=== PATIENT | female | born 1950 | race Caucasian/White ===

== ENCOUNTER 2020-09-14 16:33 | Outpatient (RCR) | payer MEDICARE, SELFPAY ==
[2020-09-14] MEDS: COVID-19 VACC, MRNA(PFIZER)/PF 30 MCG/0.3 ML SYRINGE IM (14:05)
[2020-10-05] MEDS: COVID-19 VACC, MRNA(PFIZER)/PF 30 MCG/0.3 ML SYRINGE IM (13:54)
== END 2020-12-14 23:59 ==
LOC: IMMUN 16:33
PROVIDERS: PCP Internal Medicine; Visit Provider Family Medicine
DX: Z23 Encounter for immunization (principal)
CPT/HCPCS: 0001A; 0002A; 91300

== ENCOUNTER → 2021-06-29 09:35 | Outpatient (CLI) | payer MEDICARE, SELFPAY ==
[2021-06-29 12:19] LABS: Absolute Lymphocyte Count 1.64 X10^3/uL (0.83-4.51); Basophil# 0.02 X10^3/uL; Basophil% 0.4 % (0-1); Eosinophil# 0.03 X10^3/uL; Eosinophils% 0.6 % (0-5); Hematocrit 41.5 % (37-47); Hemoglobin 13.6 g/dL (12.0-15.0); Lymphocyte # 1.64 X10^3/ul (0.83-4.51); Lymphocyte % 32.8 % (19-41); Mean Corp Hgb Conc 32.8 g/dL (32-36); Mean Corpuscular Hgb 27.7 pg (27.0-32.0); Mean Corpuscular Volume 84.5 fL (81-99); Mean Platelet Vol. 12.4 fl (6.2-12.0); NRBC Flagged by Analyzer 0 % (0-5); Neutrophil # 3.01 X10^3/uL (2.7-7.7); Neutrophil % 60.2 % (47-70); Platelet Count 178 K/mm3 (150-450); RBC Distribution Width CV 12.2 % (11.6-14.6); RBC Distribution Width SD 37.4 fl (35.1-43.9); Red Blood Count 4.91 M/mm3 (4.2-5.4)
[2021-06-29 12:39] LABS: AST(SGOT) 14 U/L (15-37); Alanine Aminotransfer ALT/SGPT 22 U/L (13-56); Albumin, Serum 3.7 g/dL (3.2-5.0); Alkaline Phosphatase 69 U/L (45-117); Anion Gap 3 (5-15); BUN 14 mg/dL (7-18); BUN/Creat Ratio 17.6 RATIO (10-20); Calcium,Total 9.1 mg/dL (8.5-10.1); Chloride 108 mmol/L (98-107); Cholesterol 201 mg/dL (200); Creatinine, Serum 0.79 mg/dL (0.55-1.02); EST Glomerular Filtration Rate 76 mL/min (>60); Est Glom Filt Rate - Afr Amer 92 mL/min (>60); Globulin 3.8 g/dL (2.2-4.2); Glucose 103 mg/dL (74-106); High Density Lipoprotein 79 mg/dL; Magnesium 2.3 mg/dL (1.6-2.6); Protein, Total 7.5 g/dL (6.4-8.2); Sodium Level 140 mmol/L (136-145); Triglycerides 66 mg/dL; Very Low Density Lipoprotein 13 mg/dL (5-40)
== END ==
PROVIDERS: PCP Internal Medicine; Referring Provider Nurse Practitioner Family; Visit Provider Nurse Practitioner Family
DX: R00.2 Palpitations (principal); I10 Essential (primary) hypertension
CPT/HCPCS: 36415; 80053; 80061; 83735; 84443; 85025

== ENCOUNTER → 2021-11-08 | Outpatient (CLI) | payer MEDICARE, SELFPAY ==
[2021-11-08 15:16] LABS: Anion Gap 7 (5-15); BUN 15 mg/dL (7-18); BUN/Creat Ratio 18.4 RATIO (10-20); Calcium,Total 8.7 mg/dL (8.5-10.1); Chloride 104 mmol/L (98-107); Creatinine, Serum 0.82 mg/dL (0.55-1.02); EST Glomerular Filtration Rate 74 mL/min (>60); Est Glom Filt Rate - Afr Amer 89 mL/min (>60); Glucose 97 mg/dL (74-106); Potassium 3.8 mmol/L (3.5-5.1); Sodium Level 138 mmol/L (136-145)
== END | disposition home or self-care (01) ==
LOC: BIMLAB 13:34
PROVIDERS: PCP Internal Medicine; Referring Provider Internal Medicine; Visit Provider Internal Medicine
DX: I10 Essential (primary) hypertension (principal)
CPT/HCPCS: 36415; 80048

== ENCOUNTER → 2022-02-27 | Outpatient (CLI) | payer MEDICARE, SELFPAY ==
[2022-02-27 15:31] LABS: Anion Gap 5 (5-15); BUN 13 mg/dL (7-18); BUN/Creat Ratio 16.6 RATIO (10-20); Chloride 106 mmol/L (98-107); Creatinine, Serum 0.78 mg/dL (0.55-1.02); EST Glomerular Filtration Rate 77 mL/min (>60); Est Glom Filt Rate - Afr Amer 93 mL/min (>60); Glucose 109 mg/dL (74-106); Potassium 4.4 mmol/L (3.5-5.1); Sodium Level 140 mmol/L (136-145)
== END | disposition home or self-care (01) ==
LOC: BIMLAB 13:48
PROVIDERS: PCP Internal Medicine; Referring Provider Internal Medicine; Visit Provider Internal Medicine
DX: I10 Essential (primary) hypertension (principal)
CPT/HCPCS: 36415; 80048

== ENCOUNTER → 2022-12-01 | Outpatient (CLI) | payer MEDICARE, SELFPAY ==
[2022-12-01 12:17] LABS: Absolute Lymphocyte Count 2.14 X10^3/uL (0.83-4.51); Absolute Neutrophil Count 3.6 X10^3/uL (2.0-7.7); Basophil# 0.02 X10^3/uL; Basophil% 0.3 % (0-1); Eosinophil# 0.07 X10^3/uL; Eosinophils% 1.1 % (0-5); Hematocrit 39.4 % (37-47); Hemoglobin 12.6 g/dL (12.0-15.0); Lymphocyte # 2.14 X10^3/ul (0.83-4.51); Lymphocyte % 34.4 % (19-41); Mean Corpuscular Hgb 28.1 pg (27.0-32.0); Mean Corpuscular Volume 87.8 fL (81-99); Mean Platelet Vol. 12.7 fl (6.2-12.0); Monocyte# 0.38 X10^3/uL; Monocyte% 6.1 % (0-10); NRBC Flagged by Analyzer 0 % (0-5); Neutrophil # 3.59 X10^3/uL (2.7-7.7); Neutrophil % 57.8 % (47-70); Platelet Count 185 K/mm3 (150-450); RBC Distribution Width CV 12.4 % (11.6-14.6); RBC Distribution Width SD 39.8 fl (35.1-43.9); Red Blood Count 4.49 M/mm3 (4.2-5.4); White Blood Count 6.2 K/mm3 (4.4-11.0)
[2022-12-01 13:04] LABS: ALB/GLOB Ratio 0.9 RATIO (0.9-2.4); AST(SGOT) 15 U/L (15-37); Alanine Aminotransfer ALT/SGPT 23 U/L (13-56); Albumin, Serum 3.4 g/dL (3.2-5.0); Alkaline Phosphatase 62 U/L (45-117); Anion Gap 6 (5-15); BUN 16 mg/dL (7-18); BUN/Creat Ratio 20.4 RATIO (10-20); Calcium,Total 8.8 mg/dL (8.5-10.1); Chloride 108 mmol/L (98-107); Cholesterol 188 mg/dL (200); Creatinine, Serum 0.78 mg/dL (0.55-1.02); EST Glomerular Filtration Rate 77 mL/min (>60); Est Glom Filt Rate - Afr Amer 93 mL/min (>60); Globulin 3.7 g/dL (2.2-4.2); Glucose 108 mg/dL (74-106); High Density Lipoprotein 75 mg/dL; Potassium 4.3 mmol/L (3.5-5.1); Protein, Total 7.1 g/dL (6.4-8.2); Sodium Level 141 mmol/L (136-145); Triglycerides 68 mg/dL; Very Low Density Lipoprotein 14 mg/dL (5-40)
== END | disposition home or self-care (01) ==
LOC: BIMLAB 10:28
PROVIDERS: PCP Internal Medicine; Visit Provider Internal Medicine
DX: I10 Essential (primary) hypertension (principal)
CPT/HCPCS: 36415; 80053; 80061; 85025

== ENCOUNTER → 2023-01-02 | Outpatient (CLI) | payer MEDICARE, SELFPAY ==
--- NOTE | 2023-01-02 14:16 | BI_ITS ---
MAMMOGRAPHY - BILATERAL SCREENING REASON FOR EXAM: Female, 72 years old. Routine annual screening examination. PERTINENT HISTORY: Non-contributory. History of prior right stereotactic breast biopsy. TECHNIQUE: Digital bilateral breast chema (3D mammographic acquisition) in the CC and MLO projections. 2-D mediolateral oblique (MLO) and craniocaudad (CC) views of both breasts were obtained. CAD: Full Field Digital Mammography with Computer Added Detection was performed. COMPARISON: Comparison is made with prior examination February 17, 2015. FINDINGS: Breast Composition: The breasts are heterogeneously dense, which may obscure small masses. There are no dominant masses or suspicious calcifications. A tissue clip marker is seen in the upper lateral aspect of the right breast with prior biopsy. Stable small benign-appearing bilateral axillary lymph nodes. No other significant abnormalities are identified. There has been no significant change since the prior study. BI/SCRN MAMM (CAD)W/CHEMA BILAT IMPRESSION: Stable bilateral screening mammogram. Yearly follow-up mammogram recommended. (A) ASSESSMENT CATEGORY: BIRADS Category 2: Benign. A letter regarding these results will be sent to the patient by the facility within 30 days. Approximately 10% of breast cancers are not detected by mammography. A normal mammogram should not delay biopsy of a clinically suspicious abnormality. [id number] Electronically Signed: Wilbert Brooks MD at 11:45 EDT ,
--- NOTE | 2023-01-02 14:25 | BD_ITS ---
STUDY: DUAL ENERGY X-RAY ABSORPTIOMETRY / DXA REASON FOR EXAM: Female, 72 years old. Post -Menopausal TECHNIQUE: Bone Mineral Density (BMD) measurements of lumbar spine and bilateral hips were obtained. COMPARISON: None. FINDINGS: Lumbar Spine (L1-L4): g/cm2 (0.811) / T-score (-2.1) / Z-score (0.0) Findings are suggestive of osteopenia with a high fracture risk. Left Femur Total: g/cm2 (0.776) / T-score (-1.4) / Z-score (0.2) Left Femoral Neck: g/cm2 (0.677) / T-score (-1.6) / Z-score (0.3) Right Femur Total: g/cm2 (0.678) / T-score (-2.2) / Z-score (-0.7) Right Femoral Neck: g/cm2 (0.613) / T-score (-2.1) / Z-score (-0.3) BD/Dexa Bone Density Study IMPRESSION: The patient is considered osteopenic as outlined below according to World Paco Organization (WHO) criteria with a high fracture risk. Reference Information: The T-score is the number of standard deviations above or below the standard which is normal for young adults at their peak bone mineral density. The World Health Organization (WHO) interprets the T-scores as follows: Above -1 Normal bone density Between -1 and -2.5 Osteopenia Equal to / or below -2.5 Osteoporosis As a practical clinical guideline, osteopenia may be graded as follows: Mild -1 through -1.5 Moderate -1.6 through -2.0 Severe -2.1 through -2.4 The Z-score is the number of standard deviations above or below age-matched controls. A Z-score of less than -1.5 would be considered abnormal. References: 1. NIH Osteoporosis and Related Bone Diseases www osteo.org 2. International Society for Clinical Densitometry www iscd.org 3. National Osteoporosis Foundation www nof.org Electronically Signed: Wilbert Brooks MD at 15:48 EDT ,
== END | disposition home or self-care (01) ==
LOC: OPBD 14:13
PROVIDERS: PCP Internal Medicine; Referring Provider Internal Medicine; Visit Provider Internal Medicine
DX: Z13.820 Encounter for screening for osteoporosis (principal); Z78.0 Asymptomatic menopausal state; Z12.31 Encounter for screening mammogram for malignant neoplasm of breast
CPT/HCPCS: 77063; 77067; 77080

== ENCOUNTER → 2023-07-12 | Outpatient (CLI) | payer MEDICARE, SELFPAY ==
[2023-07-12 17:15] LABS: Vitamin D,25 Hydroxy 28.6 ng/mL
[2023-07-12 17:19] LABS: Anion Gap 5 (5-15); BUN 17 mg/dL (7-18); Calcium,Total 9.8 mg/dL (8.5-10.1); Chloride 105 mmol/L (98-107); Creatinine, Serum 0.85 mg/dL (0.55-1.02); EST Glomerular Filtration Rate 70 mL/min (>60); Est Glom Filt Rate - Afr Amer 85 mL/min (>60); Glucose 93 mg/dL (74-106); Potassium 4.4 mmol/L (3.5-5.1); Sodium Level 139 mmol/L (136-145)
== END | disposition home or self-care (01) ==
LOC: BIMLAB 16:08
PROVIDERS: PCP Internal Medicine; Referring Provider Internal Medicine; Visit Provider Internal Medicine
DX: M85.80 Other specified disorders of bone density and structure, unspecified site (principal)
CPT/HCPCS: 36415; 80048; 82306

== ENCOUNTER → 2023-11-29 | Outpatient (CLI) | payer MEDICARE, SELFPAY ==
--- NOTE | 2023-11-29 08:50 | RAD_ITS ---
STUDY: X-RAY - RIGHT ANKLE REASON FOR EXAM: Female, 73 years old. Rolled ankle. TECHNIQUE: 3 views of the right ankle. COMPARISON: None. FINDINGS: There is an oblique fracture of the distal fibular metadiaphysis. Normal visualized distal tibia. Normal medial malleolus. Normal tibiotalar articulation and ankle mortise. Normal visualized talus and calcaneus. The visualized subtalar, talonavicular, calcaneocuboid and tarsal articulations are normal. There is mild soft tissue swelling overlying the lateral malleolus. RAD/Ankle min 3 Views IMPRESSION: Oblique fracture of the distal fibular metadiaphysis. Mild soft tissue swelling overlying the lateral malleolus. Electronically Signed: Mark Dias MD at 9:08 EDT ,
== END | disposition home or self-care (01) ==
LOC: MTRAD 08:49
PROVIDERS: PCP Internal Medicine; Referring Provider Physician Assistant Surgical; Visit Provider Physician Assistant Surgical
DX: S96.911A Strain of unspecified muscle and tendon at ankle and foot level, right foot, initial encounter (principal); X50.1XXA Overexertion from prolonged static or awkward postures, initial encounter
CPT/HCPCS: 73610

== ENCOUNTER 2023-12-12 10:17 | Day surgery (SDC) | payer MEDICARE, SELFPAY ==
[2023-12-12] VITALS (7 sets, daily range): BP systolic 98–172; BP diastolic 44–71; PULSE 53–58; RESP 16; TEMP 36.4–36.9; O2SAT 96–99; BMI 24.2
--- NOTE | 2023-12-12 10:21 | EKG12_ITS ---
Test Reason : pre op Blood Pressure : / mmHG Vent. Rate : 055 BPM Atrial Rate : 055 BPM P-R Int : 176 ms QRS Dur : 084 ms QT Int : 398 ms P-R-T Axes : 007 012 012 degrees QTc Int : 380 ms Sinus bradycardia Otherwise normal ECG No previous ECGs available Confirmed by CHARITY AGUILAR, MARIJA ([id number]), news editor CANDELARIA LOYOLA ([id number]) on 12/17/2023 8:32:00 AM Referred By: Favio Posada Confirmed By:MARIJA NASH MD
[2023-12-12] MEDS: Lactated Ringers 1,000 ML 15 ML IV (10:45)
--- NOTE | 2023-12-12 12:26 | HP.PCM_ITS ---
HPI - General HPI Narrative WANDA TURK, is a 73 F who presents for right ankle open reduction internal fixation. no changes to h and p, ok to proceed. right ankle marked. rab, post op instructions and narcotic counselling. no further questions or concerns. MR#: [id number] Acct: [id number] Name: WANDA TURK Rep #: [id number] : 1950 Provider: Dr. Favio Posada MD Age/Sex: 73/F Location[place] [facility] [place] Status: Signed Intake Vital Signs 07/12/2414:36 Height 5 ft 8 in Intake Visit Reasons: RIGHT FIBULA Accompanied by: Is patient in pain?: No Allergies No Known Allergies Allergy (Verified 12/06/23 09:28) Medications ?Medication ?Instructions ?Recorded ?Confirmed ?Type multivitamin 1 tab PO DAILY 06/29/21 12/06/23 History calcium carbonate 600 mg PO BID #180 tabs 02/08/23 12/06/23 Rx cholecalciferol (vitamin D3) 50 50 mcg PO DAILY #90 caps 02/08/23 12/06/23 Rx mcg (2,000 unit) capsule ibandronate 150 mg tablet (Boniva) 150 mg PO QMONTH #7 tabs 02/08/23 12/06/23 Rx propranolol 60 mg capsule,24 See Rx Instructions .Route 08/27/23 12/06/23 Rx hr,extended release .COMPLEX #90 caps losartan 25 mg tablet 25 mg PO BID #180 tabs 09/17/23 12/06/23 Rx PFSH Medical History Osteopenia with high risk of fracture Osteopenia Health care maintenance Colon cancer screening GERD (gastroesophageal reflux disease) Hypertension Heart palpitations History of skin cancer Surgical History History of Mohs micrographic surgery for skin cancer Family History Father Cancer HypertensionGrandfather Myocardial infarction, Onset Age: 70Mother High cholesterol Skin cancer Social History Smoking Status: Never smoker alcohol intake: current alcohol intake frequency: holidays/special occasions only substance use type: does not use what type of physical activity do you participate in: walking HPI RIGHT FIBULA Details: This documentation accurately reflects the service provided and the decisions made by me, Dr. Favio Posada MD 12/06/23 0843. Part of today?s visit was documented by [ ], acting as scribe. WANDA TURK is a 73 year old F here today for right distal fibula fracture. 8 days ago, tripped. here with her . per urgent care initial evaluation of right ankle injury. Patient states that she stepped on a root 2 days ago and twisted her right ankle. Patient states that she continues to have quite a bit of pain when ambulating on the foot. She notes no numbness, tingling or loss range of motion. No other associated symptoms or alleviating/aggravating factors. Ortho Exam General General: Yes no acute distress Neurologic: Yes alert and Yes oriented x3 Psychologic: Yes reasonable and appropriate Right Foot/Ankle Skin/Wound: Yes CDI, Ecchymosis and Soft Tissue Swelling; No Erythema Exam: present tender to palpate - over fracture site Dorsiflexion 0-20: 0 degrees Plantar Flexion 0-40: 40 degrees Compartments: Compartments: soft Tests: Villarreal Test: 1 Motor: Ankle Dorsiflextion: 4, Ankle Plantar Flexion: 4, Ankle Eversion: 4, Ankle Inversion: 4 and EHL: 4 Sensation: Deep Peroneal Nerve: I, Superficial Peroneal Nerve: I, Tibial Nerve: I, Sural Nerve: I and Saphenous Nerve: I Pulses: Dorsalis Pedis: 2 and Posterior Tibial: 2 Supplemental Info [facility] Imaging Services [address] [place] [address] [id number] Ankle min 3 Views MR#: [id number] Acct: [id number] Name: WANDA TURK Rep #: [id number] : 1950 F 73 From: Mark Dias MD PCP: Dr. Na Bragg MD Status: REG CLI Study: Ankle min 3 Views Date of Exam: 11/29/23 Exam# [id number] Ordering Dr: Rj Watson PA STUDY: X-RAY - RIGHT ANKLE REASON FOR EXAM: Female, 73 years old. Rolled ankle. TECHNIQUE: 3 views of the right ankle. COMPARISON: None. FINDINGS: There is an oblique fracture of the distal fibular metadiaphysis. Normal visualized distal tibia. Normal medial malleolus. Normal tibiotalar articulation and ankle mortise. Normal visualized talus and calcaneus. The visualized subtalar, talonavicular, calcaneocuboid and tarsal articulations are normal. There is mild soft tissue swelling overlying the lateral malleolus. RAD/Ankle min 3 Views IMPRESSION: Oblique fracture of the distal fibular metadiaphysis. Mild soft tissue swelling overlying the lateral malleolus. Electronically Signed: Mark Dias MD at 9:08 EDT , I independently reviewed the imaging. Concur with radiologist report. The fibula fracture appears nondisplaced Arcos B at the level of the syndesmosis. No talar shift or increase in the medial clear space. I did however do gravity stress external rotation stress views and the medial clear space widening to slightly over 6 mm. Coding Level of Care Code Off vis,new,level 3 Diagnoses Closed right fibular fracture S82.401A Assessment and Plan Assessment and Plan (1) Closed right fibular fracture: Status: Acute Plan: WANDA TURK is a 73 year old F here today for right distal fibula fracture. This is a Arcos B ankle fracture with gravity stress views showing 6 mm or more of medial clear space widening this is typically an indication for surgery when there is over 4 mm of widening on stress views. I let the patient know the pros and cons risk benefits of nonoperative versus surgical intervention here. Nonoperative may have higher chance of osteoarthritis with the talar shift and ankle instability but that is apparent on these gravity stress views. That being said surgery has its own set of risks like infection delayed or malunion hardware irritation breakage or other problems. Let the patient know the recovery 6 weeks of minimal amount of weightbearing and 3 to 6 months before full recovery is expected. They understand wish to go ahead with surgery signed the consent form for surgery today right ankle open reduction internal fixation. Did let them know that he may have to fix the syndesmosis as well as if there is any instability of that during surgery but typically with Arthrex suture button construct. They understood no further questions or concerns. Pros and cons risks and benefits were discussed with the patient including but not limited to infection, pain, stiffness, bleeding, damage to surrounding structures, neurovascular injury, recurrence or retear, failure or wear of hardware or fixation, instability, fracture, deep vein thrombosis and pulmonary embolism, anesthetic risks, , patient dissatisfaction, need for further surgery and other risks. Patient understood and wished to proceed with surgery, and signed the informed consent documentation. Orders: Orders Ankle min 3 Views Today S82.401A - Unspecified fracture of shaft of right fibula, initial encounter for closed fracture [facility] Medical History (Updated 12/10/23 @ 08:35 by Nichol Land) Wears glasses Walker as ambulation aid Non-smoker Osteopenia with high risk of fracture Osteopenia Health care maintenance Colon cancer screening GERD (gastroesophageal reflux disease) Hypertension Heart palpitations History of skin cancer Home Medications ?Medication ?Instructions ?Recorded ?Last Taken ?Type multivitamin 1 tab PO DAILY 06/29/21 Unknown History calcium carbonate 600 mg PO BID #180 tabs 02/08/23 Unknown Rx cholecalciferol (vitamin D3) 50 50 mcg PO DAILY #90 caps 02/08/23 Unknown Rx mcg (2,000 unit) capsule ibandronate 150 mg tablet (Boniva) 150 mg PO QMONTH #7 tabs 02/08/23 Unknown Rx losartan 25 mg tablet 25 mg PO BID #180 tabs 09/17/23 12/12/23 09:00 Rx propranolol 60 mg capsule,24 60 mg PO QHS 12/10/23 Unknown History hr,extended release Allergy/AdvReac Type Severity Reaction Status Date / Time No Known Allergies Allergy Verified 12/12/23 10:36 Family History Father Cancer Hypertension Grandfather Myocardial infarction, Onset Age: 70 Mother High cholesterol Skin cancer Surgical History History of Mohs micrographic surgery for skin cancer Social History Smoking Status: Never smoker alcohol intake: current alcohol intake frequency: holidays/special occasions only substance use type: does not use what type of physical activity do you participate in: walking Vital Signs Vital Signs Vital Signs: 12/12/23 10:38 12/12/23 10:38 Temperature 97.7 F L Temperature Source Temporal Pulse Rate 58 L Respiratory Rate 16 Respiratory Pattern Normal Blood Pressure 161/58 H Blood Pressure Mean 92 Blood Pressure Source Monitor Blood Pressure Position Semi-Fowlers Blood Pressure Location Left Arm Pulse Ox 96 Oxygen Delivery Method Room Air Weight Weight: 149 lb 14.629 oz Body Mass Index (BMI) 24.2
[2023-12-12] MEDS: Cefazolin 2 GM in 0.9% Normal Saline (100mL Bag) 100 ML IV (12:47)
--- NOTE | 2023-12-12 13:00 | RAD_ITS ---
INDICATION: FX EXAMINATION/TECHNIQUE: X-RAY - RIGHT XR Ankle 5 VIEWS COMPARISON: FINDINGS: Intraoperative images demonstrate ORIF at the distal fibula . Bony fragments are well aligned. RAD/Ankle 2 Views IMPRESSION: Status post ORIF of the distal fibula. Electronically Signed: Bj Guthrie DO at 17:01 EDT ,
--- NOTE | 2023-12-12 14:15 | OP.PCM_ITS ---
Problems Associated Problem List Diagnoses (1) Closed right fibular fracture: Report of Operation Date of Procedure: 12/12/23 Pre-Operative Diagnosis: R ankle fracture Post-Operative Diagnosis: Same Surgery/Procedure Performed:: Right ankle ORIF fibula Description of Surgical Findings:: Surgeon: Favio Posada Type of Anesthesia: Spinal Anesthesiologist: Vivek Ibarra Estimated Blood Loss (mL): 25 Description of Procedure: Patient brought to the operating room theater. Placed supine on the table. General anesthesia induced. 2 g IV Ancef ministered prior to start of procedure. Bump under the right hip. Right leg bumped up under blankets. Tourniquet applied to the thigh appropriately padded. SCD on the nonoperative leg. All bony prominences padded. Lower extremity prepped and draped in the usual sterile fashion with chlorhexidine-based prep solution allowing over 3 minutes drying time prior to draping. Preoperative timeout performed to confirm the site patient and the surgery. Began by elevating the limb inflated the tourniquet to 250 mmHg. Did a standard slightly posterior lateral incision approach to the distal fibula carried the dissection down through skin and subcutaneous tissue achieved meticulous hemostasis. Identified the fracture site cleared away any interposed hematoma and fracture periosteum. Achieved preliminary reduction using a pointed reduction forcep. Drilled the far cortex in oblique fashion across the fracture site with a 2.0 mm drill followed by 3.0 mm drill at the proximal cortex. Used the countersink. I then inserted a 3.0 mm lag screw 22 mm in length. This held the reduction nicely. I then selected a Arthrex one third tubular plate. I placed this posterior lateral surface of the distal fibula antiglide fashion. I inserted 2 fully threaded 4.0 mm cancellous screws distally as well as 4 fully threaded 2.5 mm cortical screws proximally. This achieved good reduction and held the fracture nicely in place. Final radiographs were taken AP lateral and mortise views as well as stress views external rotation stress view cotton test and direct lateral stress test of the ankle to ensure normal medial clear space no syndesmosis disruption. Tourniquet let down wound thoroughly irrigated final pictures taken and saved x- rays onto the system. Subcutaneous tissue closed with 2-0 Vicryl sutures and skin with jack. Skin cleaned with wet dry dressing followed application of Adaptic 4 x 4 gauze ABD dressing sterile cast padding and a posterior prefabricated fiberglass splint with the foot and ankle in neutral overwrapped with Kehinde wrap. Patient woken up from the general anesthetic transferred off the operating table and taken postanesthetic care unit in stable condition. All sponge needle instrument counts were correct no complications plan to be discharged home acco rding to day surgery criteria and follow-up in the office nonweightbearing in 2 days. Ch[address] not to place the patient with VTE prophylaxis they are quite mobile and fit. cpt 44652? Complications none Admit VTE Documentation VTE Present on Admission: No VTE Mechan Device Prophylaxis: SCD's VTE Pharm Prophylaxis ordered?: No Reason prophylaxis not ordered:: Treatment Not Indicated Procedures Musculoskeletal 20xxx-29xxx: Other Procedure See Report
--- NOTE | 2023-12-12 14:24 | DCINST_ITS ---
Discharge Instructions Diet Discharge Diet: No restrictions Activity Discharge Activity: Return to Normal Activity and Use Crutches Weight Bearing Status: No weight bearing Keep extremity elevated above heart level: Operative Extremity Dressing / Incision Call your doctor if your incision/area has: Continuous Slow Oozing, Sudden Increased Bleeding, Increased Pain/ Swelling, Increased Redness, Foul Smelling Discharge and Swelling at the incision site Change Dressing in: 2 days Remove Dressing in: leave in place till F/U Follow Up Care Please Follow Up With: Favio Posada MD When: 2 days Test Results: Test results from this visit will be discussed in further detail at your follow- up appointment, if applicable. Discharge Plan Admission Attending Provider: Favio Posada Primary Care Provider: Na Bragg Instructions Print Language: Arabic Discharge Orders/Prescriptions Prescriptions: New oxycodone-acetaminophen [Endocet] 5-325 mg tablet 1 tab PO Q4H MDD 6 PRN (Reason: pain) 4 Days Qty: 20 0RF No Action multivitamin Tablet 1 tab PO DAILY ibandronate [Boniva] 150 mg tablet 150 mg PO QMONTH Qty: 7 1RF calcium carbonate 600 mg calcium (1,500 mg) tablet 600 mg PO BID Qty: 180 3RF cholecalciferol (vitamin D3) 50 mcg (2,000 unit) capsule 50 mcg PO DAILY Qty: 90 3RF propranolol 60 mg capsule,extended release 24 hr 60 mg PO QHS Rx Instructions: TAKE 1 CAPSULE BY MOUTH AT BEDTIME losartan 25 mg tablet 25 mg PO BID Qty: 180 1RF Referrals / Follow Up: Na Bragg MD [Primary Care Provider] - Favio Posada MD [Med Staff - Active Staff] - Disposition Disposition (needs filled in before D/C Order can be placed): Home, Self Care
[2023-12-12] MEDS: HYDROcodone Bitartrate/Apap 5/325 Tablet PO (15:57)
== END 2023-12-12 18:27 | disposition home or self-care (01) ==
LOC: SDC 10:18 → AC 10:20
PROVIDERS: PCP Internal Medicine; Referring Provider Orthopaedic Surgery Sports Medicine; Visit Provider Orthopaedic Surgery Sports Medicine
PROC: (CPT 27792; principal; 2023-12-12 11:45)
DX: S82.431A Displaced oblique fracture of shaft of right fibula, initial encounter for closed fracture (principal); W22.8XXA Striking against or struck by other objects, initial encounter; I10 Essential (primary) hypertension; K21.9 Gastro-esophageal reflux disease without esophagitis; Z79.83 Long term (current) use of bisphosphonates; Z79.899 Other long term (current) drug therapy
CPT/HCPCS: 27792; 01480; 73600; 76000; 93005; C1713; J7120; J2405

== ENCOUNTER 2024-03-03 09:00 | Outpatient (RCR) | payer MEDICARE, SELFPAY ==
--- NOTE | 2024-01-02 10:03 | HP.PTEVAL ---
Patient's Visit Information Visit Information Visit Information: WANDA TURK is a 73 year old F referred to Physical Therapy by Dr. Favio Posada MD with a diagnosis of R fibular fracture ORIF 12/10. Date of Evaluation: 01/02/24 Physical Therapist: Wilmer Archer, DPT, OCS, CSCS Visit Plan Frequency: 2x /Week Duration: 4-6 Weeks Plan: 1-2x/week for 6 weeks (pt is NWB R until january doc visit). Ankle ROM and strength to start progressing to gait training and stair trainging and return to funciton and proprio when allowed. Next visit teach 4 way ankle and gastroc wall stretch IE HEP towel toe [id number], seated heel toe raises 2x10, AP, AROM inv/ev 15x, towel gastroc stretch 30 5x all 3x/day, also educated on stairs up right with crutch and rail and gait pattern NWB Subjective Subjective: R ankle ORIF after ankle fracture late May slipping on wetness and tree root. Surgery was around 12/11/23. Pt is NWB x 6 weeks(january). Script is for ankle ROM. Been NWB, getting around with scooter adn crutches for last 3 weeks. Kneels on 5 gallon bucket in shower. Basic ADLs are going OK, needs set up. helps. dresses I , bathroom I. Walks with aD I. Lots of steps that she scoots up and down, crawls to bedroom. one railing. HEP: none yet. Heal up. Sleep is good. No pain in a while. No employment, retired from [employer]. 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 Walks when healthy up to two miles on sidewalk. Enjoys crafting knitting and needlecraft. Read books. Objective Objective: R ankle AROM -2 DF to 55 PF to 18 inv and 10 eversion, L is /30/20 PROM is tight in gastroc and firm end feel. Incision is lateral and mostly dry , not fully healed yet, dressed appropriately. dons and doffs boot with help from son. Pushed back in WC today, has crutches and is mod I in their use NWB on L. Has been scooting up steps but can do steps upright with rail and one crutch NWB L with SBA and near mod I. Should have hubby with her if she will do this at home. Min A with just two crutches. hip and knee aROM symmetrical and WFL. strength R ankle good contractions 3+ and no pain, L ankle 4+. knee and hip strength 4-/5 B and symmetrical. reflexes 2/3 patella and achillles(R achilles not checked) sensation B LE WNL to gross light touch. Chair trasnfers are I. Balance/Special Test Scores Lower Extremity Functional Score: 22 Goals Goal 1:: 4 DF 60 PF and 25 inv and 20 ev on R ankle to normalize gait when allowed. Goal Time Frame: 4-6 Weeks Goal 2:: I in normalized gait in community when [id number] by physician Goal Time Frame: 4-6 Weeks Goal 3:: steps normal and reciprocal Goal Time Frame: 4-6 Weeks Goal 4:: pt feel back to 90% of all activities without pain Goal Time Frame: 4-6 Weeks Goal 5:: LEFS score 50 Goal Time Frame: 4-6 Weeks Rehabilitation Potential Physical Therapy Diagnosis: R ankle stiffness due to fracture and inability to bear weight due to surgery. Rehabilitation Potential: Good Anticipated Interventions Patient/Client Instruction: Educate patient on: Condition For the Purpose of:: To increase ROM, To improve nutrient delivery to tissue, To improve muscle performance and motor function and To improve ability of physical actions for home/community/work/leisure Therapeutic Exercise to Include: Strength training, Flexibilty training, Passive ROM and Active ROM For the Purpose of:: To increase ROM, To improve muscle performance and motor function, To increase tolerance to activity/condition/position, To improve ability of physical actions for home/community/work/leisure and To improve gait and locomotor functions Manual Therapy Techniques to Include: Scar massage, Passive ROM and Soft tissue mobilization For the Purpose of:: To increase ROM, To improve nutrient delivery to tissue, To improve muscle performance and motor function and To improve gait and locomotor functions Cryotherapy (ice pack, ice massage): Yes For the Purpose of:: To decrease swelling/inflammation Text: Thank you for the opportunity to evaluate your patient. For Medicare and Medicare HMO plans, please review the plan of care and approve it. It will need to be FAXED BACK to us at [phone] for Medicare purposes. For Medicare only, by signing this I certify the plan of care. Please let me know if there are questions or concerns regarding this plan of care. Physician Signature: Date:
--- NOTE | 2024-01-18 09:00 | HP.PTREVAL ---
Re-Evaluation Intro: Dr. Favio Posada MD, It has been my pleasure to treat WANDA TURK over the last 3 visits for R fibular fracture ORIF 12/10. Please see the progress note below for an update on the physical therapy plan of care! Subjective Subjective: Band exercises went OK and easy 3x10+. Pain overall is not an issue. Objective Objective/Function: walking WBAT in clinic today without pain and needs some VC but does well once instructed with two crutches. Ankle ROM after manual today is full and resisted 4 way ankle strength without pain today. Plan Plan Plan: awaiting WB progression from doctor. Then f/u next week for WB instruction and WB ex progression Balance/Gait/Functional tests Balance/Special Test Scores Lower Extremity Functional Score: 22 Goals Goals Goal 1:: 4 DF 60 PF and 25 inv and 20 ev on R ankle to normalize gait when allowed. Goal Time Frame: 4-6 Weeks Goal Progress: Goal Met Goal 2:: I in normalized gait in community when [id number] by physician Goal Time Frame: 4-6 Weeks Goal 3:: steps normal and reciprocal Goal Time Frame: 4-6 Weeks Goal 4:: pt feel back to 90% of all activities without pain Goal Time Frame: 4-6 Weeks Goal 5:: LEFS score 50 Goal Time Frame: 4-6 Weeks Anticipated Interventions Anticipated Interventions Patient/Client Instruction: Educate patient on: Condition For the Purpose of:: To increase ROM, To improve nutrient delivery to tissue, To improve muscle performance and motor function and To improve ability of physical actions for home/community/work/leisure Therapeutic Exercise to Include: Strength training, Flexibilty training, Passive ROM and Active ROM For the Purpose of:: To increase ROM, To improve muscle performance and motor function, To increase tolerance to activity/condition/position, To improve ability of physical actions for home/community/work/leisure and To improve gait and locomotor functions Manual Therapy Techniques to Include: Scar massage, Passive ROM and Soft tissue mobilization For the Purpose of:: To increase ROM, To improve nutrient delivery to tissue, To improve muscle performance and motor function and To improve gait and locomotor functions Cryotherapy (ice pack, ice massage): Yes For the Purpose of:: To decrease swelling/inflammation Re-Evaluation Ending Re-evaluation ending: Please do not hesitate to contact me at [phone] by phone or if you have questions or concerns regarding this new plan of care! Sincerely, Wilmer Archer, DPT, OCS, CSCS
--- NOTE | 2024-03-03 09:18 | HP.PTDCSUM_ITS ---
Discharge Summary D/C summary: It has been my pleasure to treat WANDA TURK referred by Dr. Favio Posada MD, with the diagnosis of R fibular fracture ORIF 12/10 for a total of 6 visit(s). Discharge Date: 03/03/24 Please see the following information for a summary of their discharge status. Subjective Subjective: No pain. Doing well. Life normal. Sleep is normal. Running from [employer], shooting basketball. 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 Exercises are going OK. To doctor . Overall Improvement % Improvement: 95 Objective Objective/Function: Walking without antalgia, steps reciprocally and normal. Full aROM R ankle, strength at 5/5. R bigger than L ankle today but that is her nromal baseline. Pt doing excellent overall and will be d/c to [facility] Goals Goal 1:: 4 DF 60 PF and 25 inv and 20 ev on R ankle to normalize gait when allowed. Goal Progress: Goal Met Goal 2:: I in normalized gait in community when [id number] by physician Goal Progress: Goal Met Goal 3:: steps normal and reciprocal Goal Progress: Goal Met Goal 4:: pt feel back to 90% of all activities without pain Goal Progress: Goal Met Goal 5:: LEFS score 50 Goal Progress: Goal Met Plan Plan: d/c D/C Information d/c sentence: If there are questions or concerns regarding this patient's physical therapy, please feel free to call me at [phone]. Thank you for the referral of this patient. Sincerely, Wilmer Archer, DPT, OCS, CSCS Balance/Gait/Functional tests Balance/Special Test Scores Lower Extremity Functional Score: 63 Improvement % Improvement: 95
== END 2024-03-03 10:01 | disposition home or self-care (01) ==
LOC: PT 09:00
PROVIDERS: PCP Internal Medicine; Referring Provider Orthopaedic Surgery Sports Medicine; Visit Provider Orthopaedic Surgery Sports Medicine
DX: S82.401D Unspecified fracture of shaft of right fibula, subsequent encounter for closed fracture with routine healing (principal)
CPT/HCPCS: 97110; 97140; 97162; 97530

== ENCOUNTER → 2024-03-03 | Outpatient (CLI) | payer MEDICARE, SELFPAY ==
[2024-03-03 15:39] LABS: Anion Gap 5 (5-15); BUN 11 mg/dL (7-18); BUN/Creat Ratio 12.9 RATIO (10-20); Calcium,Total 9.4 mg/dL (8.5-10.1); Chloride 107 mmol/L (98-107); Creatinine, Serum 0.86 mg/dL (0.55-1.02); EST Glomerular Filtration Rate 69 mL/min (>60); Est Glom Filt Rate - Afr Amer 84 mL/min (>60); Glucose 107 mg/dL (74-106); Potassium 4.2 mmol/L (3.5-5.1); Sodium Level 139 mmol/L (136-145)
[2024-03-03 15:54] LABS: Vitamin D,25 Hydroxy 31.7 ng/mL
== END | disposition home or self-care (01) ==
LOC: BIMLAB 14:16
PROVIDERS: PCP Internal Medicine; Referring Provider Internal Medicine; Visit Provider Internal Medicine
DX: M85.80 Other specified disorders of bone density and structure, unspecified site (principal)
CPT/HCPCS: 36415; 80048; 82306

== ENCOUNTER 2024-06-10 14:38 | Emergency (ER) | payer MEDICARE, SELFPAY ==
[2024-06-10 14:42] VITALS: BP 130/51; PULSE 67; RESP 18; TEMP 36.3; O2SAT 99; BMI 24.2
--- NOTE | 2024-06-10 14:57 | EKG12_ITS ---
Test Reason : SYNCOPE Blood Pressure : */* mmHG Vent. Rate : 64 BPM Atrial Rate : 64 BPM P-R Int : 184 ms QRS Dur : 72 ms QT Int : 402 ms P-R-T Axes : 45 21 11 degrees QTcB Int : 414 ms Normal sinus rhythm Normal ECG Confirmed by Kevin Peñaloza ([id number]), film editor supervisor CANDELARIA LOYOLA ([id number]) on 06/12/2024 11:01:07 AM Referred By: Confirmed By: Kevin Peñaloza
--- NOTE | 2024-06-10 14:58 | EX.ED.DYSGE1 ---
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 Narrative Narrative: Patient is a 74-year-old woman. She has history of hypertension. She has no history of syncope. She has no history of peptic ulcer disease. She denies black or maroon stool. She denies chest discomfort of any type or shortness of breath prior to syncope. She had been standing for some time. She states she got warm and then she passed out. She was described as being diaphoretic and ashen. There was no seizure activity. There is no incontinence. She was not postictal. Prior similar symptoms: No Recent Illness/Hospitalization: No PFSH PFSH Medical History Syncope Wears glasses Walker as ambulation aid Non-smoker Osteopenia with high risk of fracture Osteopenia Health care maintenance Colon cancer screening GERD (gastroesophageal reflux disease) Hypertension Heart palpitations History of skin cancer Home Medications ?Medication ?Instructions ?Recorded ?Last Taken ?Type multivitamin 1 tab PO DAILY 06/29/21 Unknown History calcium carbonate 600 mg PO BID #180 tabs 02/08/23 Unknown Rx cholecalciferol (vitamin D3) 50 50 mcg PO DAILY #90 caps 02/08/23 Unknown Rx mcg (2,000 unit) capsule ibandronate 150 mg tablet (Boniva) 150 mg PO QMONTH #7 tabs 02/08/23 Unknown Rx losartan 25 mg tablet 25 mg PO BID #180 tabs 04/03/24 Unknown Rx propranolol 60 mg capsule,24 60 mg PO QHS #90 caps 05/14/24 Unknown Rx hr,extended release Allergy/AdvReac Type Severity Reaction Status Date / Time No Known Allergies Allergy Verified 06/10/24 14:41 Family History Father Cancer Hypertension Grandfather Myocardial infarction, Onset Age: 70 Mother High cholesterol Skin cancer Surgical History History of Mohs micrographic surgery for skin cancer Social History Smoking Status: Never smoker alcohol intake: current alcohol intake frequency: holidays/special occasions only substance use type: does not use what type of physical activity do you participate in: walking [facility] Cardiovascular Cardiovascular: Denies chest pain, orthopnea, palpitations, paroxysmal nocturnal dyspnea or racing heartbeat Respiratory/Chest Respiratory/Chest: Denies cough, dyspnea, dyspnea on exertion, orthopnea or paroxysmal nocturnal dyspnea Gastrointestinal Gastrointestinal: Denies abdominal pain, melena, nausea or vomiting Genitourinary Genitourinary ED: Denies dysuria, hematuria or urinary frequency Neurologic Neurologic: Denies headache(s), paresthesias or weakness Hematologic/Lymphatic Hematologic/Lymphatic: Denies systems reviewed and no addt'l complaints, except as documented EXAM Physical Exam Const Vital Signs: 06/10/24 14:42 06/10/24 14:59 06/10/24 15:08 Temperature 97.4 F L Temperature Source Temporal Pulse Rate 67 Pulse Rate [Lying] 64 Pulse Rate [Sitting (for 1 minute prior to obtaining)] 69 Pulse Rate [Standing (for 1 minute prior to obtaining)] 71 Respiratory Rate 18 Respiratory Effort Normal Non-Labored Respiratory Pattern Normal Blood Pressure 130/51 H Blood Pressure [Lying] 119/63 Blood Pressure [Sitting (for 1 minute prior to obtaining)] 125/71 H Blood Pressure [Standing (for 1 minute prior to obtaining)] 119/82 H Blood Pressure Mean 77 Blood Pressure Mean [Lying] 81 Blood Pressure Mean [Sitting (for 1 minute prior to obtaining)] 89 Blood Pressure Mean [Standing (for 1 minute prior to obtaining)] 94 Pulse Ox 99 Oxygen Delivery Method Room Air 06/10/24 15:49 Temperature Temperature Source Pulse Rate 59 L Pulse Rate [Lying] Pulse Rate [Sitting (for 1 minute prior to obtaining)] Pulse Rate [Standing (for 1 minute prior to obtaining)] Respiratory Rate 12 Respiratory Effort Respiratory Pattern Blood Pressure 127/69 H Blood Pressure [Lying] Blood Pressure [Sitting (for 1 minute prior to obtaining)] Blood Pressure [Standing (for 1 minute prior to obtaining)] Blood Pressure Mean 88 Blood Pressure Mean [Lying] Blood Pressure Mean [Sitting (for 1 minute prior to obtaining)] Blood Pressure Mean [Standing (for 1 minute prior to obtaining)] Pulse Ox 96 Oxygen Delivery Method Room Air Positive well nourished and well developed General Appearance ED: well developed; Negative for pallor HEENT Reports moist mucous membranes Eyes PERRL and EOMs intact bilaterally General Eye ED: Negative for pale conjunctiva or scleral icterus Neck no lymphadenopathy, supple and no JVD Resp normal respiratory effort and clear to auscultation bilaterally Cardio regular rate, regular rhythm, S1 normal heart sound, S2 normal heart sound and no murmurs GI normal to inspection, nondistended, normoactive bowel sounds, non-tender, non-distended and no masses; Negative for hepatosplenomegaly GI Narrative: There is no palpable pulsatile mass. There is no abdominal bruit. Inspection: abdominal distention Palpation: soft Extremity normal to inspection General Extremety ED: Negative for edema or tenderness General Extremity: Negative for edema Neuro oriented x3 and CN's II-XII intact bilaterally Sensorium / Orientation: alert Psych mental status grossly normal Skin no rashes or lesions noted and no wounds General Skin Exam: elasticity normal; Negative for jaundice or pallor MDM MDM MDM Narrative Medical decision making narrative: Differential diagnosis is orthostatic hypotension, vasovagal syncope, dysrhythmia. Will place on monitor. EKG to assess for any ischemic changes had orthostatic vitals. Clinically she not anemic and has no symptoms are consistent with anemic. History is consistent with vasovagal response prior records reviewed she has a history of hypertension. She is on losartan and metoprolol. History & Record Review Additional record(s) reviewed:: Prior outpatient record Lab Data Labs: Laboratory Results - last 24 hr 06/10/24 15:14 POC Glucose 101 Treatment and Re-Evaluation :: Patient was observed for approximate 2 hours. There is no dysrhythmia on the monitor. Orthostatics were negative. Patient's history is consistent with vasovagal syncopal episode. She was discharged to home with appropriate home-going structures. Discharge Plan Triage Chief Complaint: Syncope ED Provider: Azar Brower Dx/Rx/DC Orders Clinical Impression: Vasovagal syncope, Hypertension Instructions: ED Fainting, Vagal Reaction Prescriptions: No Action multivitamin Tablet 1 tab PO DAILY ibandronate [Boniva] 150 mg tablet 150 mg PO QMONTH Qty: 7 1RF calcium carbonate 600 mg calcium (1,500 mg) tablet 600 mg PO BID Qty: 180 3RF cholecalciferol (vitamin D3) 50 mcg (2,000 unit) capsule 50 mcg PO DAILY Qty: 90 3RF losartan 25 mg tablet 25 mg PO BID Qty: 180 1RF propranolol 60 mg capsule,extended release 24 hr 60 mg PO QHS Qty: 90 1RF Rx Instructions: TAKE 1 CAPSULE BY MOUTH AT BEDTIME Primary Care Provider: Na Bragg Referrals: Na Bragg MD [Primary Care Provider] - As Needed Print Language: Nigerian Disposition Disposition: Home, Self Care
[2024-06-10 15:08] VITALS: BP 119/63; BP 119/82; BP 125/71; PULSE 64; PULSE 69; PULSE 71
[2024-06-10 15:32] LABS: Bedside Glucose 101 mg/dL (74-106)
[2024-06-10 15:49] VITALS: BP 127/69; PULSE 59; RESP 12; O2SAT 96
[2024-06-10 17:23] VITALS: BP 136/73; PULSE 62; RESP 16; TEMP 36.6; O2SAT 99
== END 2024-06-10 17:24 | disposition home or self-care (01) ==
PROVIDERS: Emergency Provider Emergency Medicine; PCP Internal Medicine; Visit Provider Emergency Medicine
DX: R55 Syncope and collapse (principal); I10 Essential (primary) hypertension; Z79.899 Other long term (current) drug therapy
CPT/HCPCS: 82962; 93005; 99284

== ENCOUNTER → 2024-10-13 | Outpatient (CLI) | payer MEDICARE, SELFPAY ==
[2024-10-13 16:58] LABS: Absolute Lymphocyte Count 2.54 X10^3/uL (0.83-4.51); Absolute Neutrophil Count 3.1 X10^3/uL (2.0-7.7); Basophil# 0.03 X10^3/uL; Basophil% 0.5 % (0-1); Eosinophil# 0.17 X10^3/uL; Eosinophils% 2.7 % (0-5); Hematocrit 39.2 % (37-47); Hemoglobin 12.8 g/dL (12.0-15.0); Lymphocyte # 2.54 X10^3/ul (0.83-4.51); Lymphocyte % 40.7 % (19-41); Mean Corp Hgb Conc 32.7 g/dL (32-36); Mean Corpuscular Hgb 27.9 pg (27.0-32.0); Mean Corpuscular Volume 85.6 fL (81-99); Mean Platelet Vol. 12.2 fl (6.2-12.0); Monocyte# 0.37 X10^3/uL; Monocyte% 5.9 % (0-10); NRBC Flagged by Analyzer 0 % (0-5); Neutrophil # 3.12 X10^3/uL (2.7-7.7); Platelet Count 197 K/mm3 (150-450); RBC Distribution Width CV 12.6 % (11.6-14.6); RBC Distribution Width SD 39.6 fl (35.1-43.9); Red Blood Count 4.58 M/mm3 (4.2-5.4); White Blood Count 6.2 K/mm3 (4.4-11.0)
[2024-10-13 18:33] LABS: ALB/GLOB Ratio 1.3 RATIO (0.9-2.4); AST(SGOT) 27 U/L (<=31); Alanine Aminotransfer ALT/SGPT 23 U/L (<=34); Albumin, Serum 4.2 g/dL (3.4-4.8); Alkaline Phosphatase 68 U/L (35-104); Anion Gap 10 (5-15); BUN 17 mg/dL (4-19); BUN/Creat Ratio 21.8 RATIO (10-20); Calcium,Total 9.9 mg/dL (7.6-11.0); Chloride 105 mmol/L (98-108); Cholesterol 242 mg/dL (<=200); Creatinine, Serum 0.79 mg/dL (0.70-1.20); EST Glomerular Filtration Rate 79 (>60); Globulin 3.1 g/dL (2.2-4.2); Glucose 89 mg/dL (70-99); High Density Lipoprotein 77 mg/dL; Low Density Lipoprotein Calc. 114 mg/dL; Protein, Total 7.3 g/dL (5.9-8.4); Sodium Level 140 mmol/L (133-145); Total Bilirubin 0.88 mg/dL (0.00-1.30); Triglycerides 257 mg/dL; Very Low Density Lipoprotein 51 mg/dL (5-40); cholesterol:hdl ratio screen 3.15
[2024-10-13 18:36] LABS: Vitamin D,25 Hydroxy 29.3 ng/mL (30-100)
== END | disposition home or self-care (01) ==
LOC: BIMLAB 15:58
PROVIDERS: PCP Internal Medicine; Referring Provider Internal Medicine; Visit Provider Internal Medicine
DX: I10 Essential (primary) hypertension (principal); M85.80 Other specified disorders of bone density and structure, unspecified site
CPT/HCPCS: 36415; 80053; 80061; 82306; 85025

== ENCOUNTER → 2025-01-06 | Outpatient (CLI) | payer MEDICARE, SELFPAY ==
--- NOTE | 2025-01-06 10:13 | BD_ITS ---
PROCEDURE: DEXA BONE DENSITY STUDY 01/06/2025 REASON FOR EXAM: POST MENOPAUSAL F, age 74 y/o . TECHNIQUE: DEXA BONE DENSITY STUDY COMPARISON: DEXA scan on 01/02/2023 FINDINGS: BMD and T-SCORES Lumbar spine: 0.848 g/cm2, T-score -1.8 Levels: L1 through L4 Change from prior: Statistically significant BMD increase of 4.6%. Left femoral neck: 0.687 g/cm2, T-score -1.5 Femoral neck comparison data not recommended for monitoring change. Prior T-score -1.6 Left total hip: 0.755 g/cm2, T-score -1.5 Change from prior: No significant change in BMD.. Right femoral neck: 0.678 g/cm2, T-score -1.5 Femoral neck comparison data not recommended for monitoring change. Prior T-score -2.1 Right total hip: 0.685 g/cm2, T-score -2.1 Change from prior: No significant change in BMD.. The World Health Organization has defined the following categories based on bone density: Normal bone density: T-score equal to or greater than -1.0 Osteopenia: T-score between -1.0 and -2.5 Osteoporosis: T-score equal to or less than -2.5 FRAX (or Comparable) Fracture Risk Assessment: 10 Year Probability of Fracture: Major Osteoporotic Fracture: 24% Hip Fracture: 8.2% (Note: FRAX is not to be reported in setting of normal range bone density, osteoporosis on DEXA, known history of osteoporosis, prior osteoporotic hip or vertebral fracture, or for any patient undergoing pharmacological treatment for bone loss.) The National Osteoporosis Foundation (NOF) recommends pharmacological treatment for patients with a FRAX 10-year risk of 3% or higher for a hip fracture, or 20% or higher for a major osteoporotic fracture, to prevent osteoporosis and reduce fracture risk. The patient does meet the pharmacological treatment recommendations for prevention of osteoporosis. BD/Dexa Bone Density Study IMPRESSION: OSTEOPENIA. Reading Location: [id number]
--- NOTE | 2025-01-06 10:15 | BI_ITS ---
EXAM: SCRN MAMM (CAD)W/CHEMA BILAT DATE: 01/06/2025 CLINICAL HISTORY: F, Age 74 y/o , BREAST CANCER SCREENING TECHNIQUE: SCRN MAMM (CAD)W/CHEMA BILAT COMPARISON: Prior exam(s) dated 01/02/2023. FINDINGS: TISSUE DENSITY: There are scattered areas of fibroglandular density. Bilateral Breast Mammographic Findings: There is an irregular mass in the upper-outer right breast at posterior depth. No significant masses, calcifications or other abnormalities are identified. BI/SCRN MAMM (CAD)W/CHEMA BILAT IMPRESSION: The irregular mass in the upper-outer right breast at posterior depth requires further evaluation. Recommend diagnostic mammogram and ultrasound of the right breast. OVERALL FINAL ASSESSMENT BI-RADS 0: INCOMPLETE - NEED ADDITIONAL IMAGING EVALUATION. RECOMMENDATION: Additional Views obtained/call backs A letter with findings and recommendations will be mailed to the patient. Reading Location: [id number]
--- OUTSIDE RECORDS SUMMARY | 2025-01-06 21:09 | XMS RPT_ITS | CCD ---
Author Organization [facility] Care Team Providers Care Director Digital Strategy Name Role Phone Dr. Na Bragg Primary Care Provider [phone]) Mahsa, Dr. Monzon Referring Provider [phone])2 MIREILLE Burnett Attending Provider Dr. Na Bragg Attending Provider [phone])2 Dr. Na Bragg Primary Care Provider 1(33 0) Dr. Na Bragg Attending Provider 1(330)2 Dr. Na Bragg Referring Provider 1(330)2 Dr. Na Bragg Primary Care Provider 1(33 0) Dr. Na Bragg Attending Provider 1(330)2 Dr. Na Bragg Referring Provider 1(330)2 Dr. Na Bragg Primary Care Provider 1(33 0) Dr. Na Bragg Attending Provider 1(330)2 Dr. Na Bragg Referring Provider 1(330)2 Dr. Na Bragg MD Primary Care Provider Dr. Na Bragg MD Attending Provider 1(33 0) Dr. Na Bragg MD Referring Provider 1(33 0) Miguelito Benitez Attending Unavailable Na Bragg Primary Care Unavailable Na Bragg Referring Unavailable Na Bragg Attending Unavailable Na Bragg Primary Care Unavailable Brower, Azar Attending Unavailable Oleghe, Efewongbe Primary Care Unavailable Oleghe, Efewongbe Primary Care Unavailable Oleghe, Efewongbe Attending Unavailable Oleghe, Efewongbe Referring Unavailable Oleghe, Efewongbe Primary Care Unavailable Oleghe, Efewongbe Attending Unavailable Oleghe, Efewongbe Referring Unavailable Oleghe, Efewongbe Primary Care Unavailable Favio Posada Attending Unavailable Favio Posada Referring Unavailable Oleghe, Efewongbe Attending Unavailable Oleghe, Efewongbe Primary Care Unavailable Oleghe, Efewongbe Referring Unavailable Oleghe, Efewongbe Primary Care Unavailable Favio Posada Attending Unavailable Oleghe, Efewongbe Referring Unavailable EmmanuelShantanuSaint [facility] Attending Unavailable Oleghe, Efewongbe Primary Care Unavailable Oleghe, Efewongbe Primary Care Unavailable Oleghe, Efewongbe Attending Unavailable Oleghe, Efewongbe Referring Unavailable Oleghe, Efewongbe Referring Unavailable Oleghe, Efewongbe Primary Care Unavailable Favio Posada Attending Unavailable Medications Current Medications Medication Drug Class(es) Dates Sig (Normalized) Sig (Original) calcium carbonate 1500 mg oral tablet (2 sources) Start: 02-08-2023 take 1 tablet by mouth twice daily Calcium Carbonate 600 mg calcium (1,500 mg) tablet Active 600 mg PO TWICE A DAY 180 February 08, 2023 12:00am cholecalciferol 0.05 mg oral capsule (2 sources) Vitamin D Start: 02-08-2023 take 1 capsule by mouth once daily Cholecalciferol (Vitamin D3) 50 mcg (2,000 unit) capsule Active 50 ug PO DAILY 90 February 08, 2023 12:00am ibandronic acid 150 mg oral tablet (3 sources) Bisphosphonate Start: 02-08-2023 End: 09-02-2024 take 1 tablet by mouth every month Ibandronate 150 mg tablet Active 150 mg PO EVERY MONTH September 02, 2024 12:21pm losartan potassium 25 mg oral tablet (20 sources) Angiotensin 2 Receptor Nelson Start: 01-25-2022 End: 04-03-2024 take 1 tablet by mouth twice daily Losartan 25 mg tablet Active 25 mg PO TWICE A DAY 180 April 03, 2024 1:02pm Start: 09-07-2021 End: 01-25-2022 take 1 tablet by mouth once daily Losartan 25 mg tablet Discontinued 25 mg PO DAILY December 07, 2021 3:50pm January 25, 2022 1:50pm Multivitamin preparation (5 sources) Start: 06-29-2021 take 1 tablet by mouth once daily Multivitamin Active 1 TABLET PO DAILY June 29, 2021 10:02am Start: 06-29-2021 take 1 tablet by ekaterina th once daily Multivitamin Active 1 TABLET PO DAILY June 29, 2021 12:00am Start: 06-29-2021 take 1 tablet by ekaterina th once daily Multivitamin Active 1 TABLET PO DAILY June 29, 2021 1:00am Multivitamin tablet (1 source) Start: 06-29-2021 Multivitamin t ablet Active 1 {tbl} PO DAILY June 29, 2021 1:00am 24 hr propranolol hydrochloride 60 mg extended release oral capsule (20 sources) beta-Adrenergi c Nelson Start: 07-27-2021 End: 05-14-2024 take 1 capsule by mouth every twenty-four hours at bedtime Propranolol 60 mg capsule,extended release 24 hr Active 60 mg PO AT BEDTIME May 14, 2024 4:36pm TAKE 1 CAPSULE BY MOUTH AT BEDTIME Completed/Discontinued Medications Medication Drug Class(es) Dates Sig (Normalized) Sig (Original) acetaminophen 325 mg / oxyCODONE hydrochloride 5 mg oral tablet (1 source) Opioid Agonist Start: 12-12-2023 End: 12-25-2023 Oxycodone-Acetamin ophen (Endocet) 5-325 mg tablet Discontinued 1 {tbl} PO Q4H as needed for pain 26 10December 12, 2023 December 25, 2023 9:18am omeprazole 40 mg delayed release oral capsule (6 sources) Proton Pump Inhibitor Start: 07-27-2021 End: 11-14-2021 take 1 capsule by mouth once daily Omeprazole 40 mg capsule,delayed release(DR/EC) Discontinued 40 mg PO DAILY July 27, 2021 1:00am November 14, 2021 8:59am Problems Active Problems Problem Classification Problem Date Documented Date Episodic/Chronic Anxiety disorders (9 sources) Anxiety; Translations: [Anxiety disorder, unspecified] Chronic Cardiac dysrhythmias (9 sources) Palpitations; Translations: [Palpitations] Episodic Esophageal disorders (10 sources) Gastroesophageal reflux disease; Translations: [Gastro-esophageal reflux disease without esophagitis] Chronic Essential hypertension (16 sources) Hypertensive disorder; Translations: [Essential (primary) hypertension] Onset: 10-16-2024 Chronic Other bone disease and musculoskeletal deformities (2 sources) Osteopenia; Translations: [Other specified disorders of bone density and structure, unspecified site] 02-08-2023 Episodic Other bone disease and musculoskeletal deformities (3 sources) Osteopenia with high fracture risk; Translations: [Other specified disorders of bone density and structure, unspecified site] 07-12-2023 Episodic Other bone disease and musculoskeletal deformities (2 sources) Other specified disorders of bone density and structure, unspecified site; Translations: [Disorder of bone and cartilage, unspecified] Onset: 10-13-2024 07-12-2023 Episodic Other nervous system disorders (6 sources) Tremor; Translations: [Tremor, unspecified] 07-23-2021 Episodic Other screening for suspected conditions (not mental disorders or infectious disease) (5 sources) Patient encounter status; Translations: [Encounter for screening for malignant neoplasm of colon] Onset: 01-02-2025 12-01-2022 Episodic Residual codes; unclassified (2 sources) Asymptomatic menopausal state; Translations: [Asymptomatic menopausal state] Onset: 10-13-2024 Episodic Past or Other Problems Problem Classification Problem Date Documented Da te Episodic/Chronic Fracture of lower limb (2 sources) Closed fracture of fibula; Translations: [Unspecified fracture of shaft of right fibula, initial encounter for closed fracture] Onset: 03-06-2024 11-29-2023 Episodic Sprains and strains (2 sources) Strain of muscle and/or tendon of lower leg; Translations: [Strain of unspecified muscle and tendon at ankle and foot level, right foot, initial encounter] Onset: 03-06-2024 11-29-2023 Episodic Syncope (2 sources) Vasovagal syncope; Translations: [Syncope and collapse] Onset: 07-12-2024 06-18-2024 Episodic Results Test Name Value Interpretation Reference Range Facility Absolute neutrophil countOrd ered By: Na Bragg on 10-13-2024 Neutrophils (Bld) [#/Vol] 3.1 10*3/uL 2.0-7.7 [facility] Anion gap in Serum or Plasma Ordered By: Na Bragg on 10-13-2024 Anion gap [Moles/Vol] 10 mmol/L 5-15 [facility] BUN/creatinine ratioOrdered By: Na Bragg on 10-13-2024 Urea nitrogen/Creatinine [Mass ratio] 21.8 mg/mg High 10-20 [facility] Basophil percentageOrdered B y: Na Bragg on 10-13-2024 Basophils/100 WBC (Bld) 0.5 % 0-[address] [facility] Bilirubin, totalOrdered By: Na Bragg on 10-13-2024 Bilirubin [Mass/Vol] 0.88 mg/dL 0.00-1.[address] [facility] CBC W/Diff, Automatedon Absolute Lymph 2.54 X10 3/uL Normal 0.83-4.51 [facility] Comment on above: Performed By: #### L 500.4050, L500.4100, L506.1001, L100.0100 ####[facility] [address] [place], [address] Absolute Neut 3.1 X10 3/uL Normal 2.0-7.7 [facility] Comment on above: Performed By: #### L 500.4050, L500.4100, L506.1001, L100.0100 ####[facility] [address] [place], [address] Basophils/100 WBC (Bld) 0.5 % Normal 0-[address] [facility] Comment on above: Performed By: #### L 500.4050, L500.4100, L506.1001, L100.0100 ####[facility] [address] [place], [address] Eosinophils/100 WBC (Bld) 2.7 % Normal 0-5 [facility] Comment on above: Performed By: #### L 500.4050, L500.4100, L506.1001, L100.0100 ####[facility] [address] [place], [address] Erythrocyte distribution width (RBC) [Ratio] 12.6 % Normal 11.6-14.6 [facility] Comment on above: Performed By: #### L 500.4050, L500.4100, L506.1001, L100.0100 ####[facility] [address] [place], [address] Hematocrit (Bld) [Volume fraction] 39.2 % Normal 37-47 [facility] Comment on above: Performed By: #### L 500.4050, L500.4100, L506.1001, L100.0100 ####[facility] [address] [place], [address] Hemoglobin (Bld) [Mass/Vol] 12.8 g/dL Normal 12.0-15.0 [facility] Comment on above: Performed By: #### L 500.4050, L500.4100, L506.1001, L100.0100 ####[facility] [address] [place], [address] IG% 0.200 Normal 0.0-0.9 [facility] Comment on above: Result Comment: IG% - Immature Granulocytes (promyelocytes, myelocytes and metamyelocytes) > 1% indicates that a LEFT SHIFT is Present. Performed By: #### L 500.4050, L500.4100, L506.1001, L100.0100 ####[facility] [address] [place], [address] Lymphocytes/100 WBC (Bld) 40.7 % Normal 19-41 [facility] Comment on above: Performed By: #### L 500.4050, L500.4100, L506.1001, L100.0100 ####[facility] [address] [place], [address] MCH (RBC) [Entitic mass] 27.9 pg Normal 27.0-32.0 [facility] Comment on above: Performed By: #### L 500.4050, L500.4100, L506.1001, L100.0100 ####[facility] [address] [place], [address] MCHC (RBC) [Mass/Vol] 32.7 g/dL Normal 32-36 [facility] Comment on above: Performed By: #### L 500.4050, L500.4100, L506.1001, L100.0100 ####[facility] [address] [place], [address] MCV (RBC) [Entitic vol] 85.6 fL Normal 81-99 [facility] Comment on above: Performed By: #### L 500.4050, L500.4100, L506.1001, L100.0100 ####[facility] [address] [place], [address] Monocytes/100 WBC (Bld) 5.9 % Normal 0-10 [facility] Comment on above: Performed By: #### L 500.4050, L500.4100, L506.1001, L100.0100 ####[facility] [address] [place], [address] Neutrophils/100 WBC (Bld) 50.0 % Normal 47-70 [facility] Comment on above: Performed By: #### L 500.4050, L500.4100, L506.1001, L100.0100 ####[facility] [address] [place], [address] Nucleated RBC (Bld) [#/Vol] 0 10*3/uL Normal 0-5 [facility] Comment on above: Performed By: #### L 500.4050, L500.4100, L506.1001, L100.0100 ####[facility] [address] [place], [address] Platelet mean volume (Bld) [Entitic vol] 12.2 fL High 6.2-12.0 [facility] Comment on above: Performed By: #### L 500.4050, L500.4100, L506.1001, L100.0100 ####[facility] [address] [place], [address] Platelets (Bld) [#/Vol] 197 10*3/uL Normal 150-450 [facility] Comment on above: Performed By: #### L 500.4050, L500.4100, L506.1001, L100.0100 ####[facility] [address] [place], [address] RBC (Bld) [#/Vol] 4.58 10*6/uL Normal 4.2-5.4 [facility] Comment on above: Performed By: #### L 500.4050, L500.4100, L506.1001, L100.0100 ####[facility] [address] [place], [address] RDW SD 39.6 fl Normal 35.1-43.9 [facility] Comment on above: Performed By: #### L 500.4050, L500.4100, L506.1001, L100.0100 ####[facility] [address] [place], [address] WBC (Bld) [#/Vol] 6.2 10*3/uL Normal 4.4-11.0 [facility] Comment on above: Performed By: #### L 500.4050, L500.4100, L506.1001, L100.0100 ####[facility] [address] [place], [address] Calculated very low density lipoprotein (VLDL) cholesterol measurementOrdered By: Na velázquez 10-13-2024 VLDL Cholesterol 51 mg/dL High 5-40 [facility] Carbon dioxide, total [Moles /volume] in Central venous bloodOrdered By: Na Bragg on 10-13-2024 CO2 [Moles/Vol] 25.0 mmol/L 21.0-32.0 [facility] Chloride assayOrdered By: Татьяна Bragg on 10-13-2024 Chloride [Moles/Vol] 105 mmol/L 98-[address] [facility] Comprehensive Metabolic Prof ilon 10-13-2024 Albumin [Mass/Vol] 4.2 g/dL Normal 3.4-4.8 [facility] Comment on above: Performed By: #### L 500.4050, L500.4100, L506.1001, L100.0100 ####[facility] [address] [place], [address] Albumin/Globulin [Mass ratio] 1.3 {ratio} Normal 0.9-2.4 [facility] Comment on above: Performed By: #### L 500.4050, L500.4100, L506.1001, L100.0100 ####[facility] [address] [place], [address] ALK PHOS 68 U/L Normal 35-104 [facility] Comment on above: Performed By: #### L 500.4050, L500.4100, L506.1001, L100.0100 ####[facility] [address] [place], [address] ALT [Catalytic activity/Vol] 23 U/L Normal <=34 [facility] Comment on above: Performed By: #### L 500.4050, L500.4100, L506.1001, L100.0100 ####[facility] [address] [place], [address] AST [Catalytic activity/Vol] 27 U/L Normal <=31 [facility] Comment on above: Performed By: #### L 500.4050, L500.4100, L506.1001, L100.0100 ####[facility] [address] [place], [address] Bilirubin [Mass/Vol] 0.88 mg/dL Normal 0.00-1.[address] [facility] Comment on above: Performed By: #### L 500.4050, L500.4100, L506.1001, L100.0100 ####[facility] [address] [place], [address] BUN/CRE 21.8 RATIO High 10-20 [facility] Comment on above: Performed By: #### L 500.4050, L500.4100, L506.1001, L100.0100 ####[facility] [address] [place], [address] Calcium [Mass/Vol] 9.9 mg/dL Normal 7.6-11.0 [facility] Comment on above: Performed By: #### L 500.4050, L500.4100, L506.1001, L100.0100 ####[facility] [address] [place], [address] Chloride [Moles/Vol] 105 mmol/L Normal 98-[address] [facility] Comment on above: Performed By: #### L 500.4050, L500.4100, L506.1001, L100.0100 ####[facility] [address] [place], [address] CO2 [Moles/Vol] 25.0 mmol/L Normal 21.0-32.0 [facility] Comment on above: Performed By: #### L 500.4050, L500.4100, L506.1001, L100.0100 ####[facility] [address] [place], [address] Creatinine [Mass/Vol] 0.79 mg/dL Normal 0.70-1.20 [facility] Comment on above: Performed By: #### L 500.4050, L500.4100, L506.1001, L100.0100 ####[facility] [address] [place], [address] GAP 10 Normal 5-15 [facility] Comment on above: Performed By: #### L 500.4050, L500.4100, L506.1001, L100.0100 ####[facility] [address] [place], [address] GFR/1.73 sq M.predicted among non-blacks MDRD (S/P/Bld) [Vol rate/Area] 79 mL/min/{1.73_m2} Normal >60 [facility] Comment on above: Result Comment: mL/m in/1.73m2 CKD-EPI Creatinine Equation (2020) Performed By: #### L 500.4050, L500.4100, L506.1001, L100.0100 ####[facility] [address] [place], [address] Globulin (S) [Mass/Vol] 3.1 g/dL Normal 2.2-4.2 [facility] Comment on above: Performed By: #### L 500.4050, L500.4100, L506.1001, L100.0100 ####[facility] [address] [place], [address] Glucose [Mass/Vol] 89 mg/dL Normal 70-99 [facility] Comment on above: Performed By: #### L 500.4050, L500.4100, L506.1001, L100.0100 ####[facility] [address] [place], [address] Potassium [Moles/Vol] 5.0 mmol/L Normal 3.3-5.1 [facility] Comment on above: Performed By: #### L 500.4050, L500.4100, L506.1001, L100.0100 ####[facility] [address] [place], [address] Sodium [Moles/Vol] 140 mmol/L Normal 133-145 [facility] Comment on above: Performed By: #### L 500.4050, L500.4100, L506.1001, L100.0100 ####[facility] [address] [place], [address] T PROT 7.3 g/dL Normal 5.9-8.4 [facility] Comment on above: Performed By: #### L 500.4050, L500.4100, L506.1001, L100.0100 ####[facility] [address] [place], [address] Urea nitrogen [Mass/Vol] 17 mg/dL Normal 4-19 [facility] Comment on above: Performed By: #### L 500.4050, L500.4100, L506.1001, L100.0100 ####[facility] [address] [place], [address] Eosinophil percentageOrdered By: Na Bragg on 10-13-2024 Eosinophils/100 WBC (Bld) 2.7 % 0-5 [facility] Erythrocyte distribution wid th (RBC) [Ratio]Ordered By: Na Bragg on 10-13-2024 Erythrocyte distribution width (RBC) [Entitic vol] 39.6 fL 35.1-43.9 [facility] Erythrocyte distribution wid th ratioOrdered By: Na Bragg on 10-13-2024 Erythrocyte distribution width (RBC) [Ratio] 12.6 % 11.6-14.6 [facility] GFR/1.73 sq M.predicted dana g non-blacks MDRD (S/P/Bld) [Vol rate/Area]Ordered By: Na Bragg on 10-13-2024 Estimated GFR (MDRD) Non-Af Amer 79 >60 [facility] Comment on above: mL/min/1.73m2 CKD-EP I Creatinine Equation (2020) Hematocrit Auto (Bld) [Volum e fraction]Ordered By: Na Bragg on 10-13-2024 Hematocrit (Bld) [Volume fraction] 39.2 % 37-47 [facility] Hemoglobin measurementOrdere d By: Na Bragg on 10-13-2024 Hemoglobin (Bld) [Mass/Vol] 12.8 g/dL 12.0-15.0 [facility] Immature granulocytes/100 WB C Auto (Bld)Ordered By: Na Bragg on 10-13-2024 Immature granulocytes/100 WBC (Bld) 0.200 % 0.0-0.9 [facility] Comment on above: IG% - Immature Granu locytes (promyelocytes, myelocytes and metamyelocytes) > 1% indicates that a LEFT SHIFT is Present. Internal Medicine Office Vis liz 10-13-2024 Internal Medicine Office Visit [facility] [address] [place] [address] [place] [address] OFFICE VISIT Date of Service: 10/13/24 MR#: [id number] Acct: [id number] Name: WANDA TURK Rep #: [id number] : 1950 Provider: Dr. Na wolf MD Age/Sex: 74/F Location: [facility] Status: Signed Intake Vital Signs 06/10/24 14:42 10/13/24 15:37 Height 5 ft 7 in 5 ft 7 in Weight: 151 lb BMI 23.6 BP 134/84 H Blood Pressure Location Lt brachial Position Sitting Respiration 16 Pulse 61 Pulse Source Monitor Temp 97.7 F L Temp Source Temporal Pulse Oximetry (%) 98 Oxygen Delivery Method room air Intake Visit Reasons: fu Chief Complaint: FU Chronic conditions Program Production Specialist Required: No Is patient in pain?: No Allergies No Known Allergies Allergy (Verified 10/13/24 15:29) Medications ???Medication ???Instructions ???Recorded ???Confirmed ???Type multivitamin 1 tab PO DAILY 06/29/21 10/13/24 H istory calcium carbonate 600 mg PO BID #180 tabs 02/08/23 0 10/13/24 Rx cholecalciferol (vitamin D3) 50 50 mcg PO DAILY #90 caps 02/08/23 10/13/24 Rx mcg (2,000 unit) capsule losartan 25 mg tablet 25 mg PO BID #180 tabs 04/03/24 Rx propranolol 60 mg capsule,24 60 mg PO QHS #90 caps 05/14/2401/30 Rx hr,extended release ibandronate 150 mg tablet 150 mg PO QMONTH #7 tabs 09/02/24 10/13/24 Rx Have you fallen in the past year?: Yes (06/2024) PFSH Medical History Syncope Wears glasses Walker as ambulation aid Non-smoker Osteopenia with high risk of fracture Osteopenia Health care maintenance Colon cancer screening GERD (gastroesophageal reflux disease) Hypertension Heart palpitations History of skin cancer Surgical History History of Mohs micrographic surgery for skin cancer Family History (Updated 10/13/24 @ 15:35 by Priya Sánchez MA) Father Cancer brain or spinal uncertain Hypertension Grandfather Myocardial infarction, Onset Age: 70 Mother High cholesterol Skin cancer Social History (Updated 10/13/24 @ 15:37 by Priya Sánchez MA) adopted: No household members: spouse and family number of children: 2 current occupational status: retired pets and animals: Yes pets and animals: cat(s) and dog(s) sexually active: Yes Smoking Status: Never smoker alcohol intake: current alcohol intake frequency: holidays/special occasions only substance use type: does not use caffeine: No what type of physical activity do you participate in: walking frequency: daily do you feel safe at home: Yes HPI HPI Chief Complaint: FU Chronic conditions Details: WANDA TURK, is a 74 F who presents to the office today for follow-up of her chronic conditions. No acute concerns at this time. History of hypertension, today at 134/84. Typically has elevated readings during her visit and better readings overall at home. Last known systolic reading at home was 117. No chest pain, palpitation or shortness of breath. Also history of osteopenia with high fracture risk currently on ibandronate. Tolerating medication well. Due for repeat bone density scan. Other chronic medical conditions are stable. ROS Const Constitutional: No body ache, chills, excessive sweating, fatigue, fever(s), frequent falls, headache(s), snoring, weakness, sleep problems or change in appetite Eyes Eyes: No blurry vision, change in vision, bulging eyes, floaters, visual disturbances, eye pain or Light sensitivity ENT ENT: No abnormal hearing, ear or mastoid pain, tinnitus, balance problems, nosebleed/epistaxis , nasal congestion, headache(s), neck pain or sore throat Resp Respiratory: No cough, excessive phlegm production, pain on inspiration, shortness of breath, snoring or wheezing Cardio Cardiology: No chest pain at rest, chest pain with exertion, excessive sweating, shortness of breath, dyspnea on exertion, lightheadedness, orthopnea or palpitations Gastro GI: No abdominal pain, change in bowel habits, constipation, cramping, diarrhea, nausea/dyspepsia or vomiting Genitourinary-Femal e: No burning urination, painful urination, urinary incontinence, urinary frequency, suprapubic fullness, side pain, abnormal vaginal bleeding or pelvic pain Musc Musculoskeletal: No abnormal gait, joint pain, back pain, limited range of motion, neck pain or numbness Skin Skin: No dry skin, redness, excessive hair growth, yellowing of the eye, lesions, itchy eyes, rash or wounds Neuro Neurology: No abnormal gait, abnormal hearing, behavioral changes, unsteady gait/balance, weakness, frequent falls, headache(s), memory loss, numbness or visual disturbances Psych Psychia (more content not included)... Normal [facility] LDL calc ser/plasOrdered By: Na Bragg on 10-13-2024 LDL Cholesterol, Calculated 114 mg/dL [facility] Comment on above: Djxnbpyoai=541-510 m g/dL & Higher Qbvb=846 mg/dL or greater Laboratory - Chemistry and C hemistry - challengeOrdered By: Na Bragg on 10-13-2024 AST [Catalytic activity/Vol] 27 U/L <32 [facility] Lipid Profileon 10-13-2024 CHOL:HDL 3.15 Normal [facility] Comment on above: Performed By: #### L 500.4050, L500.4100, L506.1001, L100.0100 ####[facility] [address] [place], [address] Cholesterol [Mass/Vol] 242 mg/dL High <=200 [facility] Comment on above: Result Comment: Chol esterol level, Desirable <200 mg/dL Borderline high cholesterol 200-239 mg/dL High cholesterol >=240 mg/dL Recommendations of the NCEP Adult Treatment Panel for the following risk-cutoff thresholds for the [place] population. Performed By: #### L 500.4050, L500.4100, L506.1001, L100.0100 ####[facility] [address] [place], [address] Cholesterol in HDL [Mass/Vol] 77 mg/dL Normal [facility] Comment on above: Result Comment: Steph onal Cholesterol Education Program (NCEP) guidelines: <40 mg/dL: Low HDL-cholesterol (major risk factor for CHD) >= 60 mg/dL: High HDL-cholesterol (negative risk factor for CHD) HDL-cholesterol is affected by a number of factors, e.g. smoking, exercise, hormones, sex and age. Performed By: #### L 500.4050, L500.4100, L506.1001, L100.0100 ####[facility] [address] [place], [place], [address] Cholesterol in LDL [Mass/Vol] 114 mg/dL Normal [facility] Comment on above: Result Comment: Bord mxsdzj=000-676 mg/dL Higher Ycfi=673 mg/dL or greater Performed By: #### L 500.4050, L500.4100, L506.1001, L100.0100 ####[facility] [address] [place], [address] Cholesterol in VLDL [Mass/Vol] 51 mg/dL High 5-40 [facility] Comment on above: Performed By: #### L 500.4050, L500.4100, L506.1001, L100.0100 ####[facility] [address] [place], [address] Triglyceride [Mass/Vol] 257 mg/dL High [facility] Comment on above: Result Comment: The drugs N-Acetylcysteine and Metamizole may falsely depress this assay. Normal range: <150 mg/dL Borderline High: 150-199 mg/dL High: 200-499 mg/dL Very High: >500 mg/dL Performed By: #### L 500.4050, L500.4100, L506.1001, L100.0100 ####[facility] [address] [place], [address] Lymphocytes Auto (Unsp spec) [#/Vol]Ordered By: Na Bragg on 10-13-2024 Lymphocytes (Bld) [#/Vol] 2.54 10*3/uL 0.83-4.5 1 [facility] Lymphocytes/100 WBC Auto (Un sp spec)Ordered By: Na Bragg on 10-13-2024 Lymphocytes/100 WBC (Bld) 40.7 % 19-41 [facility] MCV (mean corpuscular volume ) determinationOrdered By: Na Bragg on 10-13-2024 MCV (RBC) [Entitic vol] 85.6 fL 81-99 [facility] Mean corpuscular hemoglobin (MCH) determinationOrdered By: Na Bragg on 10-13-2024 MCH (RBC) [Entitic mass] 27.9 pg 27.0-32.0 [facility] Mean corpuscular hemoglobin concentration (MCHC) determinationOrdered By: Na Bragg on 10-13-2024 MCHC (RBC) [Mass/Vol] 32.7 g/dL 32-36 [facility] Mean platelet volume determi nationOrdered By: Na Bragg on 10-13-2024 Platelet mean volume (Bld) [Entitic vol] 12.2 fL High 6.2-12.0 [facility] Monocyte percentageOrdered B y: Na Bragg on 10-13-2024 Monocytes/100 WBC (Bld) 5.9 % 0-[address] [facility] Neutrophil percentageOrdered By: Na Bragg on 10-13-2024 Neutrophils/100 WBC (Bld) 50.0 % 47-70 [facility] Nucleated red blood cell per centageOrdered By: Na Bragg on 10-13-2024 Nucleated RBC/100 WBC (Bld) [Ratio] 0 % 0-5 [facility] Platelet countOrdered By: Татьяна Bragg on 10-13-2024 Platelets (Bld) [#/Vol] 197 10*3/uL 150-450 [facility] Potassium (Unsp spec) [Mass/ Vol]Ordered By: Na Bragg on 10-13-2024 Potassium [Moles/Vol] 5.0 mmol/L 3.3-5.1 [facility] RBC Auto (Bld) [#/Vol]Ordere d By: Na Bragg on 10-13-2024 RBC (Bld) [#/Vol] 4.58 10*6/uL 4.2-5.4 [facility] Screening total cholesterol/ high density lipoprotein (HDL) cholesterol ratioOrdered By: Na Bragg on 10-13-2024 Cholesterol.total/Cholest jenn in HDL [Mass ratio] 3.15 {ratio} [facility] Serum creatinine measurement (mass/volume)Ordered By: Na Bragg on 10-13-2024 Creatinine [Mass/Vol] 0.79 mg/dL 0.70-1.20 [facility] Serum globulin measurementOr dered By: Na Bragg on 10-13-2024 Globulin (S) [Mass/Vol] 3.1 g/dL 2.2-4.[address] [facility] Serum glucose measurement (m ass/volume)Ordered By: Na Bragg on 10-13-2024 Glucose [Mass/Vol] 89 mg/dL 70-99 [facility] Serum or plasma alanine hollis otransferase (ALT) measurementOrdered By: Татьянаsimba Bragg on 10-13-2024 ALT [Catalytic activity/Vol] 23 U/L <35 [facility] Serum or plasma albumin nigel urement (mass/volume)Ordered By: Татьянаsimba Bragg on 10-13-2024 Albumin [Mass/Vol] 4.2 g/dL 3.4-4.8 [facility] Serum or plasma albumin/glob ulin mass ratioOrdered By: [facility] 10-13-2024 Albumin/Globulin [Mass ratio] 1.3 {ratio} 0.9-2.4 [facility] Serum or plasma alkaline tatyana sphatase measurementOrdered By: [facility] 10-13-2024 ALP [Catalytic activity/Vol] 68 U/L 35-104 [facility] Serum or plasma calcium nigel urement (mass/volume)Ordered By: [facility] 10-13-2024 Calcium [Mass/Vol] 9.9 mg/dL 7.6-11.0 [facility] Serum or plasma cholesterol in HDL measurement (mass/volume)Ordered By: [facility] 10-13-2024 Cholesterol in HDL [Mass/Vol] 77 mg/dL >40 [facility] Comment on above: National Cholesterol Education Program (NCEP) guidelines:<40 mg/dL: Low HDL-cholesterol (major risk factor for CHD)>= 60 mg/dL: High HDL-cholesterol (negative risk factor for CHD)HDL-cholesterol is affected by a number of factors, e.g. smoking, exercise, hormones, sex and age. Serum or plasma cholesterol measurement (mass/volume)Ordered By: Na Bragg 10-13-2024 Cholesterol [Mass/Vol] 242 mg/dL High <201 [facility] Comment on above: Cholesterol level, D esirable <200 mg/dLBorderline high cholesterol 200-239 mg/dLHigh cholesterol >=240 mg/dLRecommendations of the NCEP Adult Treatment Panel for the following risk-cutoff thresholds for the [place] population. Serum or plasma urea nitroge n measurement (mass/volume)Ordered By: Na Bragg 10-13-2024 Urea nitrogen [Mass/Vol] 17 mg/dL 4-19 [facility] Sodium levelOrdered By: Miguel velázquezcoretta Mahsa on 10-13-2024 Sodium [Moles/Vol] 140 mmol/L 133-145 [facility] Total proteinOrdered By: Wenceslao gabrielejoseph Bragg on 10-13-2024 Protein [Mass/Vol] 7.3 g/dL 5.9-8.4 [facility] Triglycerides measurementOrd ered By: Na Bragg on 10-13-2024 Triglyceride [Mass/Vol] 257 mg/dL High <[address] [facility] Comment on above: The drugs N-Acetylcy steine and Metamizole may falsely depress this assay. Normal range: <150 mg/dLBorderline High: 150-199 mg/dLHigh: 200-499 mg/dLVery High: >500 mg/dL Vitamin D, 25-hydroxyOrdered By: Na Bragg on 10-13-2024 Vitamin D 25-Hydroxy 29.3 ng/mL Low 30-[address] [facility] Comment on above: Vitamin D StatusDefi ciency: <20 ng/mL (50nmol/L)Insufficiency: 20-30 ng/mL (50-75 nmol/L)Sufficiency: 30-100 ng/mL (75-250 nmol/L)Toxicity: >100 ng/mL (>250 nmol/L) Vitamin D,25 Hydroxyon 10-13 Vitamin D 25-OH 29.3 ng/mL Low 30-100 [facility] Comment on above: Result Comment: Katie min D Status Deficiency: <20 ng/mL (50nmol/L) Insufficiency: 20-30 ng/mL (50-75 nmol/L) Sufficiency: 30-100 ng/mL (75-250 nmol/L) Toxicity: >100 ng/mL (>250 nmol/L) Performed By: #### L 500.4050, L500.4100, L506.1001, L100.0100 ####[facility] [address] [place], [address] White blood cell (WBC) count Ordered By: Na Bragg on 04-07-2025 WBC (Bld) [#/Vol] 6.2 10*3/uL 4.4-11.0 [facility] 12 Lead EKGon 06-10-2024 12 Lead EKG [facility] Cardi[facility] Services [address] [place] [address] 12 Lead EKG 06/10/24 1507 MR#: [id number] Acct: [id number] Name: WANDA TURK Rep #: [id number] : 1950 74 From: Kevin Peñaloza MD Attending Dr: Status: DEP ER Ordering Dr: Azar Brower MD Date: 06/10/24 Location: ED Sex: F C Admitted: Test Reason : SYNCOPE Blood Pressure : */* mmHG Vent. Rate : 64 BPM Atrial Rate : 64 BPM P-R Int : 184 ms QRS Dur : 72 ms QT Int : 402 ms P-R-T Axes : 45 21 11 degrees QTcB Int : 414 ms Normal sinus rhythm Normal ECG Confirmed by Kevin Peñaloza ([id number]), editor trade journal CANDELARIA LOYOLA ([id number]) on 06/12/2024 11:01:07 AM Referred By: Confirmed By: Kevin Peñaloza 06/12/24 1101 Date Kevin Peñaloza MD CC: Dr. Na Bragg MD; Dr. Azar Brower MD Signed Normal [facility] Bedside Glucoseon 06-10-2024 FINGERSTICK GLU 101 mg/dL Normal 74-106 [facility] Comment on above: Result Comment: JOSE ALBERTO BRASWELL OF PATIENT CARE PER NURSING PROTOCOL Performed By: #### L 501.080 ####[facility] [address] [place], [address] Emergency Department Summary on 06-10-2024 Emergency Department Summary [facility] Medical Records Department [address] [place] [address] Emergency Department Summary 06/10/24 MR#: [id number] Acct: [id number] Name: WANDA TURK Rep #: [id number] : 1950 74 From: Azar Brower MD PCP: Dr. 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 Narrative Narrative: Patient is a 74-year-old woman. She has history of hypertension. She has no history of syncope. She has no history of peptic ulcer disease. She denies black or maroon stool. She denies chest discomfort of any type or shortness of breath prior to syncope. She had been standing for some time. She states she got warm and then she passed out. She was described as being diaphoretic and ashen. There was no seizure activity. There is no incontinence. She was not postictal. Prior similar symptoms: No Recent Illness/Hospitaliza tion: No PFSH PFSH Medical History Syncope Wears glasses Walker as ambulation aid Non-smoker Osteopenia with high risk of fracture Osteopenia Health care maintenance Colon cancer screening GERD (gastroesophageal reflux disease) Hypertension Heart palpitations History of skin cancer Home Medications ???Medication ???Instructions ???Recorded ???Last Taken ???Type multivitamin 1 tab PO DAILY 06/29/21 Unknown History calcium carbonate 600 mg PO BID #180 tabs 02/08/23 Unknown Rx cholecalciferol (vitamin D3) 50 50 mcg PO DAILY #90 caps 02/08/23 Unknown Rx mcg (2,000 unit) capsule ibandronate 150 mg tablet (Boniva) 150 mg PO QMONTH #7 tabs 02/08/23 Unknown Rx losartan 25 mg tablet 25 mg PO BID #180 tabs 04/03/24 Unknown Rx propranolol 60 mg capsule,24 60 mg PO QHS #90 caps 05/14/24 Unknown Rx hr,extended release Allergy/AdvReac Type Severity Reaction Status Date / Time No Known Allergies Allergy Verified 06/10/24 14:41 Family History Father Cancer Hypertension Grandfather Myocardial infarction, Onset Age: 70 Mother High cholesterol Skin cancer Surgical History History of Mohs micrographic surgery for skin cancer Social History Smoking Status: Never smoker alcohol intake: current alcohol intake frequency: holidays/special occasions only substance use type: does not use what type of physical activity do you participate in: walking ROS ROS ED Cardiovascular Cardiovascular: Denies chest pain, orthopnea, palpitations, paroxysmal nocturnal dyspnea or racing heartbeat Respiratory/Chest Respiratory/Chest: Denies cough, dyspnea, dyspnea on exertion, orthopnea or paroxysmal nocturnal dyspnea Gastrointestinal Gastrointestinal: Denies abdominal pain, melena, nausea or vomiting Genitourinary Genitourinary ED: Denies dysuria, hematuria or urinary frequency Neurologic Neurologic: Denies headache(s), paresthesias or weakness Hematologic/Lymphat ic Hematologic/Lymphat ic: Denies systems reviewed and no addt'l complaints, except as documented EXAM Physical Exam Const Vital Signs: 06/10/24 14:42 06/10/24 14:59 06/10/24 15:08 Temperature 97.4 F L Temperature Source Temporal Pulse Rate 67 Pulse Rate [Lying] 64 Pulse Rate [Sitting (for 1 minute prior to obtaining)] 69 Pulse Rate [Standing (for 1 minute prior to obtaining)] 71 Respiratory Rate 18 Respiratory Effort Normal Non-Labored Respiratory Pattern Normal Blood Pressure 130/51 H Blood Pressure [Lying] 119/63 Blood Pressure [Sitting (for 1 minute prior to obtaining)] 125/71 H Blood Pressure [Standing (for 1 minute prior to obtaining)] 119/82 H Blood Pressure Mean 77 Blood Pressure Mean [Lying] 81 Blood Pressure Mean [Sitting (for 1 minute prior to obtaining)] 89 Blood Pressure Mean [Standing (for 1 minute prior to obtaining)] 94 Pulse Ox 99 Oxygen Delivery Method Room Air 06/10/24 15:49 Temperature Temperature Source Pulse Rate 59 L Pulse Rate [Lying] Pulse Rate [Sitting (for 1 minute prior to obtaining)] Pulse Rate [Standing (for 1 minute prior to obtaining)] Respiratory Rate 12 Respiratory Effort Respiratory Pattern Blood Pressure 127/69 H Blood Pressure [Lying] Blood Pressure [Sitting ( (more content not included)... Normal [facility] Ankle min 3 Viewson 03-06-20 Ankle min 3 Views [facility] [address] [place] [address] Ankle min 3 Views MR#: [id number] Acct: [id number] Name: WANDA TURK Rep #: [id number] : 1950 F 73 From: Yefri chatterjee MD PCP: Dr. Na Bragg MD Status: DEP AMB Study: Ankle min 3 Views Date of Exam: 03/06/24 Exam# [id number] Ordering Dr: Favio Posada MD -[id number] STUDY: X-RAY - RIGHT ANKLE REASON FOR EXAM: Female, 73 years old. fu TECHNIQUE: 3 view(s) of the ankle. COMPARISON: None. FINDINGS: No acute abnormality. Compression plate and screws across the distal fibula. Normal visualized distal tibia and fibula. Normal medial and lateral malleoli. Normal tibiotalar articulation and ankle mortise. Normal visualized talus and calcaneus. The visualized subtalar, talonavicular, calcaneocuboid and tarsal articulations are normal. There is no demonstrated fracture. The soft tissue structures are unremarkable. RAD/Ankle min 3 Views IMPRESSION: No acute fracture or dislocation. Electronically Signed: Yefri Torres MD at 17:16 EDT , CC: Dr. Na Bragg MD; Dr. Favio Posada MD Well Cleaner: Signed Normal [facility] Orthopedic Visit Reporton Orthopedic Visit Report [facility] [address] [place] [address] OFFICE VISIT Date of Service: 03/06/24 MR#: [id number] Acct: [id number] Name: WANDA TURK Rep #: [id number] : 1950 Provider: Dr. Favio velázquez MD Age/Sex: 73/F Location: [facility] Status: Signed Intake Vital Signs 12/12/23 10:38 03/03/24 13:54 Height 5 ft 6 in 5 ft 6 in Weight: 153 lb BMI 24.7 BP 164/84 H Blood Pressure Location Lt brachial Position Sitting Respiration 17 Pulse 62 Pulse Source Monitor Temp 98.5 F Temp Source Temporal Pulse Oximetry (%) 96 Oxygen Delivery Method room air Intake Visit Reasons: RIGHT ANKLE Chief Complaint: 6 wk f/u Accompanied by: Self Is patient in pain?: No Allergies No Known Allergies Allergy (Verified 03/06/24 09:14) Medications ???Medication ???Instructions ???Recorded ???Confirmed ???Type multivitamin 1 tab PO DAILY 06/29/21 03/06/24 History calcium carbonate 600 mg PO BID #180 tabs 02/08/23 03/06/24 Rx cholecalciferol (vitamin D3) 50 50 mcg PO DAILY #90 caps 02/08/23 03/06/24 Rx mcg (2,000 unit) capsule ibandronate 150 mg tablet (Boniva) 150 mg PO QMONTH #7 tabs 02/08/23 03/06/24 Rx losartan 25 mg tablet 25 mg PO BID #180 tabs 09/17/23 03/06/24 Rx propranolol 60 mg capsule,24 60 mg PO QHS #90 caps 02/14/24 03/06/24 Rx hr,extended release Have you fallen in the past year?: Yes PFSH Medical History Wears glasses Walker as ambulation aid Non-smoker Osteopenia with high risk of fracture Osteopenia Health care maintenance Colon cancer screening GERD (gastroesophageal reflux disease) Hypertension Heart palpitations History of skin cancer Surgical History History of Mohs micrographic surgery for skin cancer Family History Father Cancer Hypertension Grandfather Myocardial infarction, Onset Age: 70 Mother High cholesterol Skin cancer Social History Smoking Status: Never smoker alcohol intake: current alcohol intake frequency: holidays/special occasions only substance use type: does not use what type of physical activity do you participate in: walking HPI RIGHT ANKLE Details: This documentation accurately reflects the service provided and the decisions made by me, Dr. Favio Posada MD 03/06/24 0756. Part of today???s visit was documented by [ ], acting as scribe. WANDA TURK is a 73 year old F here today for 3 months FU R ankle ORIF. Patient doing well no pain swelling or other problems. The patient has been discharged from physical therapy as they are doing quite well in terms of the range of motion. Supplemental Info xr 3 view r ankle - healed fracture, no complicating features Coding Level of Care Code Global Post Op Diagnoses Closed right fibular fracture S82.401A Right ankle strain S96.911A Assessment and Plan Assessment and Plan (1) Closed right fibular fracture: Status: Acute Plan: WANDA TURK is a 73 year old F here today for 3 months FU R ankle ORIF. Patient doing well good range of motion no pain fracture appears healed will follow-up as needed no further questions or concerns. (2) Right ankle strain: Status: Acute Orders: Orders Ankle min 3 Views Today S82.401A - Unspecified fracture of shaft of right fibula, initial encounter for closed fracture, S96.911A - Strain of unspecified muscle and tendon at ankle and foot level, right foot, initial encounter Clinical Quality Measures Falls Risk Screening/Assistive Devices Have you fallen in the past year?: Yes Ortho Exam General General: Yes no acute distress Neurologic: Yes alert and Yes oriented x3 Psychologic: Yes reasonable and appropriate Right Foot/Ankle Skin/Wound: Yes CDI and healed; No Ecchymosis, Soft Tissue Swelling or Erythema Exam: present eversion normal and inversion normal; absent tender to palpate - over fracture site, TTP Lateral Malleolus or TTP Peroneal Dorsiflexion 0-20: 10 degrees Plantar Flexion 0-40: 40 degrees Compartments: Compartments: soft ROM: none pain with range of motion and none crepitus with range of motion Motor: Ankle Dorsiflextion: 5, Ankle Plantar Flexion: 5, Ankle Eversion: 5, Ankle Inversion: 5 and EHL: 5 Sensation: Deep Peroneal Nerve: I, Superficial Peroneal Nerve: I, Tibial Nerve: I, Sural Nerve: I and Saphenous Nerve: I Pulses: Dorsalis Pedis: 2 and Posterior Tibial: 2 ANKLE: normal gait 03/06/24 09 Date Favio Dickerson Signature: Date (more content not included)... Normal [facility] Basic Metabolic Profile (BMP )on 03-03-2024 BUN/CRE 12.9 RATIO Normal 10-20 [facility] Comment on above: Performed By: #### L 506.1000, L500.2500 ####[facility] [address] [place], [address] CA,Total 9.4 mg/dL Normal 8.5-10.1 [facility] Comment on above: Performed By: #### L 506.1000, L500.2500 ####[facility] [address] [place], [address] Chloride [Moles/Vol] 107 mmol/L Normal 98-[address] [facility] Comment on above: Performed By: #### L 506.1000, L500.2500 ####[facility] [address] [place], [address] CO2 [Moles/Vol] 27.0 mmol/L Normal 21.0-32.0 [facility] Comment on above: Performed By: #### L 506.1000, L500.2500 ####[facility] [address] [place], [address] Creatinine [Mass/Vol] 0.86 mg/dL Normal 0.55-1.02 [facility] Comment on above: Result Comment: The validity of the calculated GFR GFRAA in patients over 70 years has not been determined. Clinical correlation is essential. Performed By: #### L 506.1000, L500.2500 ####[facility] [address] [place], [address] EST GFR - AA 84 mL/min Normal >60 [facility] Comment on above: Result Comment: Afri can [place] GFR Calc Performed By: #### L 506.1000, L500.2500 ####[facility] [address] [place], [address] GAP 5 Normal 5-15 [facility] Comment on above: Performed By: #### L 506.1000, L500.2500 ####[facility] [address] [place], [address] GFR/1.73 sq M.predicted among non-blacks MDRD (S/P/Bld) [Vol rate/Area] 69 mL/min/{1.73_m2} Normal >60 [facility] Comment on above: Result Comment: Non- GFR Calc Performed By: #### L 506.1000, L500.2500 ####[facility] [address] [place], [address] Glucose [Mass/Vol] 107 mg/dL High 74-106 [facility] Comment on above: Result Comment: Fast ing Glucose result from 100 to 125 mg/dL suggests IMPAIRED HOMEOSTASIS per A.D.A. criteria. Performed By: #### L 506.1000, L500.2500 ####[facility] [address] [place], [address] Potassium [Moles/Vol] 4.2 mmol/L Normal 3.5-5.1 [facility] Comment on above: Performed By: #### L 506.1000, L500.2500 ####[facility] [address] [place], [address] Sodium [Moles/Vol] 139 mmol/L Normal 136-145 [facility] Comment on above: Performed By: #### L 506.1000, L500.2500 ####[facility] [address] [place], [address] Urea nitrogen [Mass/Vol] 11 mg/dL Normal 7-18 [facility] Comment on above: Performed By: #### L 506.1000, L500.2500 ####[facility] [address] [place], [address] Internal Medicine Office Vis [place] 03-03-2024 Internal Medicine Office Visit [facility] [address] [place] [address] [place] [address] OFFICE VISIT Date of Service: 03/03/24 MR#: [id number] Acct: [id number] Name: WANDA TURK Rep #: [id number] : 1950 Provider: Dr. Na wolf MD Age/Sex: 73/F Location: [facility] Status: Signed Intake Vital Signs 07/12/23 15:36 12/12/23 10:38 03/03/24 13:54 03/03/24 13:56 Height 5 ft 8 in 5 ft 6 in 5 ft 6 in Weight: 153 lb BMI 24.7 BP 164/84 H 160/80 H Blood Pressure Location Lt brachial Lt brachial Position Sitting Respiration 17 Pulse 62 Pulse Source Monitor Temp 98.5 F Temp Source Temporal Pulse Oximetry (%) 96 Oxygen Delivery Method room air Intake Visit Reasons: 6 M FU Chief Complaint: 6 M FU Is patient in pain?: No Allergies No Known Allergies Allergy (Verified 03/03/24 13:55) Medications ???Medication ???Instructions ???Recorded ???Confirmed ???Type multivitamin 1 tab PO DAILY 06/29/21 03/03/24 History calcium carbonate 600 mg PO BID #180 tabs 02/08/23 03/03/24 Rx cholecalciferol (vitamin D3) 50 50 mcg PO DAILY #90 caps 02/08/23 03/03/24 Rx mcg (2,000 unit) capsule ibandronate 150 mg tablet (Boniva) 150 mg PO QMONTH #7 tabs 02/08/23 03/03/24 Rx losartan 25 mg tablet 25 mg PO BID #180 tabs 09/17/23 03/03/24 Rx propranolol 60 mg capsule,24 60 mg PO QHS #90 caps 02/14/24 03/03/24 Rx hr,extended release Have you fallen in the past year?: Yes PFSH Medical History Wears glasses Walker as ambulation aid Non-smoker Osteopenia with high risk of fracture Osteopenia Health care maintenance Colon cancer screening GERD (gastroesophageal reflux disease) Hypertension Heart palpitations History of skin cancer Surgical History History of Mohs micrographic surgery for skin cancer Family History Father Cancer Hypertension Grandfather Myocardial infarction, Onset Age: 70 Mother High cholesterol Skin cancer Social History Smoking Status: Never smoker alcohol intake: current alcohol intake frequency: holidays/special occasions only substance use type: does not use what type of physical activity do you participate in: walking HPI HPI Chief Complaint: 6 M FU Details: WANDA TURK, is a 73 F who presents to the office today for follow-up of her chronic medical conditions. No acute concerns at this time. History of osteopenia with high fracture risk. Status post recent right fibula fracture, not pathological. Subsequently had surgery which was uneventful. Currently on Boniva which she continues to take consistently. Also on calcium and vitamin D supplements. History of hypertension, blood pressure typically elevated during her visits but home readings on average less than 120. Currently on losartan and propranolol which she continues to take as prescribed. No chest pain, palpitation or shortness of breath. Other chronic conditions are stable. ROS Const Constitutional: No body ache, chills, excessive sweating, fatigue, fever(s), frequent falls, headache(s), snoring, weight change, sleep problems, abnormal sleep pattern or change in appetite Eyes Eyes: No blurry vision, change in vision, bulging eyes, floaters, visual disturbances, eye pain or Light sensitivity ENT ENT: No abnormal hearing, ear or mastoid pain, tinnitus, balance problems, nosebleed/epistaxis , nasal congestion, headache(s), neck pain or sore throat Resp Respiratory: No cough, excessive phlegm production, pain on inspiration, shortness of breath, snoring or wheezing Cardio Cardiology: No chest pain at rest, chest pain with exertion, excessive sweating, shortness of breath, dyspnea on exertion, lightheadedness, orthopnea or palpitations Gastro GI: No abdominal pain, change in bowel habits, constipation, cramping, diarrhea, nausea/dyspepsia or vomiting Genitourinary-Femal e: No burning urination, painful urination, urinary incontinence, urinary frequency, abnormal vaginal bleeding or pelvic pain Musc Musculoskeletal: No abnormal gait, joint pain, back pain, limited range of motion, neck pain, numbness or tingling Skin Skin: No dry skin, redness, excessive hair growth, yellowing of the eye, lesions, itchy eyes, rash or wounds Neuro Neurology: No abnormal gait, abnormal hearing, behavioral changes, unsteady gait/balance, frequent falls, headache(s), memory loss, numbness, tingling or visual disturbances Psych Psychiatric: No abnormal sleep pattern, No anxiety, No behavioral changes, No change in appetite, No irritability, No memory loss and No Thoughts of harming yourself/Others Endo End (more content not included)... [facility] PT D/C Summary (1)on 024 PT D/C Summary (1) [facility] [place] [address] / REHABILITATION SERVICES DISCHARGE SUMMARY MR#: [id number] Acct: [id number] Name: WANDA TURK Rep #: [id number] : 1950 73 From: Wilmer Archer DPT, OCS, CSCS Referring Dr.: Dr. Favio Posada MD Status: R EG RCR Insurance: [facility] SELF PAY INSURANCE Discharge Summary D/C summary: It has been my pleasure to treat WANDA TURK referred by Dr. Favio Posada MD, with the diagnosis of R fibular fracture ORIF 12/10 for a total of 6 visit(s). Discharge Date: 03/03/24 Please see the following information for a summary of their discharge status. Subjective Subjective: No pain. Doing well. Life normal. Sleep is normal. Running from [email or web address], shooting basketball. 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 Exercises are going OK. To doctor . Overall Improvement % Improvement: 95 Objective Objective/Function: Walking without antalgia, steps reciprocally and normal. Full aROM R ankle, strength at 5/5. R bigger than L ankle today but that is her nromal baseline. Pt doing excellent overall and will be d/c to HEP Goals Goal 1:: 4 DF 60 PF and 25 inv and 20 ev on R ankle to normalize gait when allowed. Goal Progress: Goal Met Goal 2:: I in normalized gait in community when [id number] by physician Goal Progress: Goal Met Goal 3:: steps normal and reciprocal Goal Progress: Goal Met Goal 4:: pt feel back to 90% of all activities without pain Goal Progress: Goal Met Goal 5:: LEFS score 50 Goal Progress: Goal Met Plan Plan: d/c D/C Information d/c sentence: If there are questions or concerns regarding this patient's physical therapy, please feel free to call me at [phone]. Thank you for the referral of this patient. Sincerely, Wilmer Archer, DPT, OCS, CSCS Balance/Gait/Functi onal tests Balance/Special Test Scores Lower Extremity Functional Score: 63 Improvement % Improvement: 95 03/03/24 09 CC: Dr. Na Bragg MD; Dr. Favio Posada MD EBG Signed Normal [facility] Vitamin D,25 Hydroxyon 03-03 Vitamin D 25-OH 31.7 ng/mL Normal [facility] Comment on above: Result Comment: Katie min D 25(OH) Status Range Deficiency <20 ng/mL (50nmol/L) Insufficiency 20 - 30 ng/mL (50 - 75 nmol/L) Sufficiency 30 - 100 ng/mL (75 - 250 nmol/L) Toxicity >100 ng/mL (>250 nmol/L) Performed By: #### L 506.1000, L500.2500 ####[facility] [address] [place], [address] Ankle min 3 Viewson 01-24-20 Ankle min 3 Views [facility] [address] [place] [address] Ankle min 3 Views MR#: [id number] Acct: [id number] Name: WANDA TURK Rep #: [id number] : 1950 F 73 From: Khalif Lopes MD PCP: Dr. Na Bragg MD Status: DEP AMB Study: Ankle min 3 Views Date of Exam: 01/24/24 Exam# [id number] Ordering Dr: Favio Posada MD -[id number] STUDY: X-RAY - RIGHT ANKLE REASON FOR EXAM: Female, 73 years old. fu TECHNIQUE: 3 view(s) of the ankle. COMPARISON: 12/25/2023 FINDINGS: Healing fracture of the distal fibula after open reduction and internal fixation with a lateral plate and screws with some bony bridging. Normal medial and lateral malleoli. Normal tibiotalar articulation and ankle mortise. Normal visualized talus and calcaneus. The visualized subtalar, talonavicular, calcaneocuboid and tarsal articulations are normal. The soft tissue structures are unremarkable. RAD/Ankle min 3 Views IMPRESSION: Healing fracture of the distal fibula after open reduction and internal fixation. Electronically Signed: Khalif Lopes MD at 17:05 EDT , CC: Dr. Na Bragg MD; Dr. Favio Posada MD Well Cleaner: Signed [facility] Orthopedic Visit Reporton Orthopedic Visit Report [facility] [address] [place] [address] OFFICE VISIT Date of Service: 01/24/24 MR#: [id number] Acct: [id number] Name: WANDA TURK Rep #: [id number] : 1950 Provider: Dr. Favio velázquez MD Age/Sex: 73/F Location: [facility] Status: Signed Intake Vital Signs 12/12/23 10:38 Height 5 ft 6 in Intake Visit Reasons: RIGHT ANKLE Chief Complaint: Right ankle post op Accompanied by: Is patient in pain?: No Allergies No Known Allergies Allergy (Verified 01/24/24 09:19) Medications ???Medication ???Instructions ???Recorded ???Confirmed ???Type multivitamin 1 tab PO DAILY 06/29/21 01/24/24 History calcium carbonate 600 mg PO BID #180 tabs 02/08/23 01/24/24 Rx cholecalciferol (vitamin D3) 50 50 mcg PO DAILY #90 caps 02/08/23 01/24/24 Rx mcg (2,000 unit) capsule ibandronate 150 mg tablet (Boniva) 150 mg PO QMONTH #7 tabs 02/08/23 01/24/24 Rx losartan 25 mg tablet 25 mg PO BID #180 tabs 09/17/23 01/24/24 Rx propranolol 60 mg capsule,24 60 mg PO QHS 12/10/23 01/24/24 History hr,extended release Have you fallen in the past year?: No (?) [facility] Medical History Wears glasses Walker as ambulation aid Non-smoker Osteopenia with high risk of fracture Osteopenia Health care maintenance Colon cancer screening GERD (gastroesophageal reflux disease) Hypertension Heart palpitations History of skin cancer Surgical History History of Mohs micrographic surgery for skin cancer Family History Father Cancer Hypertension Grandfather Myocardial infarction, Onset Age: 70 Mother High cholesterol Skin cancer Social History Smoking Status: Never smoker alcohol intake: current alcohol intake frequency: holidays/special occasions only substance use type: does not use what type of physical activity do you participate in: walking HPI RIGHT ANKLE Details: This documentation accurately reflects the service provided and the decisions made by me, Dr. Favio Posada MD 01/24/24 0830. Part of today???s visit was documented by [ ], acting as scribe. WANDA TURK is a 73 year old F here today for 6 weeks FU R ankle ORIF. Patient is doing well. The patient is doing physical therapy. There is no pain swelling or other issues with the ankle. Ortho Exam General General: Yes no acute distress Neurologic: Yes alert and Yes oriented x3 Psychologic: Yes reasonable and appropriate Right Foot/Ankle Skin/Wound: Yes CDI and healed; No Ecchymosis, Soft Tissue Swelling or Erythema Exam: present eversion normal and inversion normal; absent tender to palpate - over fracture site, TTP Lateral Malleolus or TTP Peroneal Dorsiflexion 0-20: 0 degrees Plantar Flexion 0-40: 40 degrees Compartments: Compartments: soft ROM: none pain with range of motion and none crepitus with range of motion Motor: Ankle Dorsiflextion: 5, Ankle Plantar Flexion: 5, Ankle Eversion: 5, Ankle Inversion: 5 and EHL: 5 Sensation: Deep Peroneal Nerve: I, Superficial Peroneal Nerve: I, Tibial Nerve: I, Sural Nerve: I and Saphenous Nerve: I Pulses: Dorsalis Pedis: 2 and Posterior Tibial: 2 Supplemental Info X-rays obtained of the right ankle 3 views show the fracture to be well-healed well aligned and no complicating features. Coding Level of Care Code Global Post Op Diagnoses Closed right fibular fracture S82.401A Right ankle strain S96.911A Assessment and Plan Assessment and Plan (1) Closed right fibular fracture: Status: Acute Plan: WANDA TURK is a 73 year old F here today for 6 weeks FU R ankle ORIF. Doing well, no concerns. Patient can start weightbearing as tolerated gradually increase that over the next 6 weeks begin strengthening discontinue the orthosis boot and follow-up in 6 weeks time in the office they understood no further questions or concerns. (2) Right ankle strain: Status: Acute Orders: Orders Ankle min 3 Views Today S82.401A - Unspecified fracture of shaft of right fibula, initial encounter for closed fracture, S96.214S - Strain of unspecified muscle and tendon at ankle and foot level, right foot, initial encounter Clinical Quality Measures Falls Risk Screening/Assistive Devices Have you fallen in the past year?: No (?) 01/24/24 0940 Date Favio Posada MD Cosigner Signature: Date (if applicable) CC: [facility] Re-Evaluation - PT (1)on Re-Evaluation - PT (1) [facility] [address] [place] [address] [address] [place] [address] / REEVALUATION / MEDICARE RECERTIFICATION PHYSICAL THERAPY MR#: [id number] Acct: [id number] Name: WANDA TURK Rep #: [id number] : 1950 73 From: Wilmer Archer DPT, OCS, CSCS Referring Dr.: Dr. Favio Posada MD Status:REG RCR Insurance: [facility] SELF PAY INSURANCE Re-Evaluation Intro: Dr. Favio Posada MD, It has been my pleasure to treat WANDA TURK over the last 3 visits for R fibular fracture ORIF 12/10. Please see the progress note below for an update on the physical therapy plan of care! Subjective Subjective: Band exercises went OK and easy 3x10+. Pain overall is not an issue. Objective Objective/Function: walking WBAT in clinic today without pain and needs some VC but does well once instructed with two crutches. Ankle ROM after manual today is full and resisted 4 way ankle strength without pain today. Plan Plan Plan: awaiting WB progression from doctor. Then f/u next week for WB instruction and WB ex progression Balance/Gait/Functi onal tests Balance/Special Test Scores Lower Extremity Functional Score: 22 Goals Goals Goal 1:: 4 DF 60 PF and 25 inv and 20 ev on R ankle to normalize gait when allowed. Goal Time Frame: 4-6 Weeks Goal Progress: Goal Met Goal 2:: I in normalized gait in community when [id number] by physician Goal Time Frame: 4-6 Weeks Goal 3:: steps normal and reciprocal Goal Time Frame: 4-6 Weeks Goal 4:: pt feel back to 90% of all activities without pain Goal Time Frame: 4-6 Weeks Goal 5:: LEFS score 50 Goal Time Frame: 4-6 Weeks Anticipated Interventions Anticipated Interventions Patient/Client Instruction: Educate patient on: Condition For the Purpose of:: To increase ROM, To improve nutrient delivery to tissue, To improve muscle performance and motor function and To improve ability of physical actions for home/community/work /leisure Therapeutic Exercise to Include: Strength training, Flexibilty training, Passive ROM and Active ROM For the Purpose of:: To increase ROM, To improve muscle performance and motor function, To increase tolerance to activity/condition/ position, To improve ability of physical actions for home/community/work /leisure and To improve gait and locomotor functions Manual Therapy Techniques to Include: Scar massage, Passive ROM and Soft tissue mobilization For the Purpose of:: To increase ROM, To improve nutrient delivery to tissue, To improve muscle performance and motor function and To improve gait and locomotor functions Cryotherapy (ice pack, ice massage): Yes For the Purpose of:: To decrease swelling/inflammati on Re-Evaluation Ending Re-evaluation ending: Please do not hesitate to contact me at [phone] by phone or if you have questions or concerns regarding this new plan of care! Sincerely, Wilmer Archer, ATTILAT, OCS, CSCS 01/18/24 0900 CC: Dr. Na Bragg MD; Dr. Favio Posada MD EBG Signed For Medicare only, by signing this I certify the plan of care. _ Physicians Signature Date Normal [facility] Basophil percentageOrdered B y: Na Bragg on 07-12-2023 Chloride [Moles/Vol] 105 mmol/L 98-[address] [facility] Glucose [Mass/Vol] 93 mg/dL 74-106 [facility] Potassium [Moles/Vol] 4.4 mmol/L 3.5-5.1 [facility] Sodium [Moles/Vol] 139 mmol/L 136-145 [facility] Laboratory - Chemistry and C hemistry - challengeOrdered By: Na Bragg on 07-12-2023 CO2 [Moles/Vol] 29.0 mmol/L 21.0-32.0 [facility] Urea nitrogen/Creatinine [Mass ratio] 20.0 mg/mg 10-20 [facility] No Panel InformationOrdered By: Na Bragg on 07-12-2023 Estimated GFR (MDRD) Amer 85 mL/min >60 [facility] Comment on above: GFR Calc Estimated GFR (MDRD) Non-Af Amer 70 mL/min >60 [facility] Comment on above: Non- GFR Calc Vitamin D 25-Hydroxy 28.6 ng/mL [facility] Comment on above: Vitamin D 25(OH) Sta tus Range Deficiency <20 ng/mL (50nmol/L) Insufficiency 20 - 30 ng/mL (50 - 75 nmol/L) Sufficiency 30 - 100 ng/mL (75 - 250 nmol/L) Toxicity >100 ng/mL (>250 nmol/L) Serum or plasma calcium nigel urement (mass/volume)Ordered By: Na Bragg on 07-12-2023 Calcium [Mass/Vol] 9.8 mg/dL 8.5-10.1 [facility] Serum or plasma creatinine m easurement (mass/volume)Ordered By: Na Bragg on 07-12-2023 Creatinine [Mass/Vol] 0.85 mg/dL 0.55-1.02 [facility] Comment on above: The validity of the calculated GFR & GFRAA in patients over 70 years has not been determined. Clinical correlation is essential. Serum or plasma urea nitroge n measurement (mass/volume)Ordered By: Na Brgag on 07-12-2023 Urea nitrogen [Mass/Vol] 17 mg/dL 7-18 [facility] Thin prep Papanicolaou smear with manual screeningOrdered By: simba Bragg on 07-12-2023 Thin prep Papanicolaou smear with manual screening 5 5-15 [facility] Absolute lymphocyte countOrd ered By: tamikoquenemojoseph Bragg on 12-01-2022 Lymphocytes Auto (Unsp spec) [#/Vol] 2.14 10*3/uL 0.83-4.51 [facility] Basophil percentageOrdered B y: Na Meadowsmariya on 12-01-2022 Basophils/100 WBC (Bld) 0.3 % 0-1 [facility] Bilirubin [Mass/Vol] 1.40 mg/dL 0.20-1.[address] [facility] Comment on above: For patients on eltr ombopag therapy, use of Dimension [place] TBIL is not recommended. Chloride [Moles/Vol] 108 mmol/L 98-[address] [facility] Cholesterol [Mass/Vol] 188 mg/dL <200 [facility] Comment on above: <200 mg/dL Desirable 200-240 mg/dL Borderline >240 mg/dL High Risk Eosinophils/100 WBC (Bld) 1.1 % 0-5 [facility] Glucose [Mass/Vol] 108 mg/dL 74-106 [facility] Comment on above: Fasting Glucose resu lt from 100 to 125 mg/dL suggests IMPAIRED HOMEOSTASIS per A.D.A. criteria. Neutrophils (Bld) [#/Vol] 3.6 10*3/uL 2.0-7.7 [facility] Neutrophils/100 WBC (Bld) 57.8 % 47-70 [facility] Potassium [Moles/Vol] 4.3 mmol/L 3.5-5.1 [facility] Protein [Mass/Vol] 7.1 g/dL 6.4-8.2 [facility] Sodium [Moles/Vol] 141 mmol/L 136-145 [facility] Triglyceride [Mass/Vol] 68 mg/dL <[address] [facility] Comment on above: The drugs N-Acetylcy steine and Metamizole may falsely depress this assay.Serum Triglycerides Reference Interval Normal <150 mg/dL Borderline high 150 - 199 mg/dL High 200 - 499 mg/dL Very High > or = 500 mg/dL WBC (Bld) [#/Vol] 6.2 10*3/uL 4.4-11.0 [facility] Blood erythrocytes count (nu mber/volume)Ordered By: Na Bragg on 12-01-2022 RBC (Bld) [#/Vol] 4.49 10*6/uL 4.2-5.4 [facility] Blood hemoglobin measurement (mass/volume)Ordered By: Na Bragg on 12-01-2022 Hemoglobin (Bld) [Mass/Vol] 12.6 g/dL 12.0-15.0 [facility] Blood lymphocytes/100 leukoc ytesOrdered By: Na Bragg on 12-01-2022 Lymphocytes/100 WBC (Bld) 34.4 % 19-41 [facility] Blood monocytes/100 leukocyt esOrdered By: Na Bragg on 12-01-2022 Monocytes/100 WBC (Bld) 6.1 % 0-[address] [facility] Blood platelet mean volumeOr dered By: Na Bragg on 12-01-2022 Platelet mean volume (Bld) [Entitic vol] 12.7 fL 6.2-12.0 [facility] Determination of erythrocyte mean corpuscular volume (MCV)Ordered By: Na Bragg on 12-01-2022 MCV (RBC) [Entitic vol] 87.8 fL 81-[address] [facility] Hematocrit Auto (Bld) [Volum e fraction]Ordered By: Na Bragg on 12-01-2022 Hematocrit (Bld) [Volume fraction] 39.4 % 37-47 [facility] Laboratory - Chemistry and C hemistry - challengeOrdered By: Na Bragg on 12-01-2022 ALP [Catalytic activity/Vol] 62 U/L 45-117 [facility] ALT [Catalytic activity/Vol] 23 U/L 13-56 [facility] CO2 [Moles/Vol] 27.0 mmol/L 21.0-32.0 [facility] Globulin (S) [Mass/Vol] 3.7 g/dL 2.2-4.[address] [facility] Urea nitrogen/Creatinine [Mass ratio] 20.4 mg/mg 10-20 [facility] Laboratory - Hematology and Cell countsOrdered By: Na Bragg on 12-01-2022 Erythrocyte distribution width (RBC) [Entitic vol] 39.8 fL 35.1-43.9 [facility] Erythrocyte distribution width (RBC) [Ratio] 12.4 % 11.6-14.6 [facility] Immature granulocytes/100 WBC (Bld) 0.300 % 0.0-0.9 [facility] Comment on above: IG% - Immature Granu locytes (promyelocytes, myelocytes and metamyelocytes) > 1% indicates that a LEFT SHIFT is Present. MCH (RBC) [Entitic mass] 28.1 pg 27.0-32.0 [facility] Nucleated RBC/100 WBC (Bld) [Ratio] 0 % 0-5 [facility] MCHC Auto (RBC) [Mass/Vol]Or dered By: Na Bragg on 12-01-2022 MCHC (RBC) [Mass/Vol] 32.0 g/dL 32-36 [facility] No Panel InformationOrdered By: Na Bragg on 12-01-2022 Estimated GFR (MDRD) Amer 93 mL/min >60 [facility] Comment on above: GFR Calc Estimated GFR (MDRD) Non-Af Amer 77 mL/min >60 [facility] Comment on above: Non- GFR Calc Platelets bldOrdered By: Wenceslao Bragg on 12-01-2022 Platelets (Bld) [#/Vol] 185 10*3/uL 150-450 [facility] Serum or plasma albumin nigel urement (mass/volume)Ordered By: Na Bragg on 12-01-2022 Albumin [Mass/Vol] 3.4 g/dL 3.2-5.0 [facility] Serum or plasma albumin/glob ulin mass ratioOrdered By: Na Bragg on 12-01-2022 Albumin/Globulin [Mass ratio] 0.9 {ratio} 0.9-2.4 [facility] Serum or plasma calcium nigel urement (mass/volume)Ordered By: Na Bragg on 12-01-2022 Calcium [Mass/Vol] 8.8 mg/dL 8.5-10.1 [facility] Serum or plasma cholesterol in HDL measurement (mass/volume)Ordered By: Na Bragg on 12-01-2022 Cholesterol in HDL [Mass/Vol] 75 mg/dL >40 [facility] Comment on above: The drugs N-Acetylcy steine and Metamizole may falsely depress this assay. Reference Range HDL <40 mg/dL Low HDL Cholesterol HDL >or= 60 mg/dL High HDL Cholesterol Serum or plasma cholesterol in VLDL measurement (mass/volume)Ordered By: Na Bragg on 12-01-2022 Cholesterol in VLDL [Mass/Vol] 14 mg/dL 5-40 [facility] Serum or plasma creatinine m easurement (mass/volume)Ordered By: Na Bragg on 12-01-2022 Creatinine [Mass/Vol] 0.78 mg/dL 0.55-1.02 [facility] Comment on above: The validity of the calculated GFR & GFRAA in patients over 70 years has not been determined. Clinical correlation is essential. Serum or plasma low density lipoprotein (LDL) cholesterol measurement (mass/volume)Ordered By: Na Bragg on 12-01-2022 Cholesterol in LDL [Mass/Vol] 99 mg/dL 0-130 [facility] Serum or plasma urea nitroge n measurement (mass/volume)Ordered By: Na Bragg on 12-01-2022 Urea nitrogen [Mass/Vol] 16 mg/dL 7-18 [facility] Thin prep Papanicolaou smear with manual screeningOrdered By: Na Bragg 12-01-2022 Thin prep Papanicolaou smear with manual screening 15 U/L 15-37 [facility] Thin prep Papanicolaou smear with manual screening 6 5-15 [facility] Basophil percentageon 2021 Chloride [Moles/Vol] 106 mmol/L 98-[address] [facility] Work Phone: Glucose [Mass/Vol] 109 mg/dL 74-106 [facility] Work Phone: Comment on above: Fasting Glucose resu lt from 100 to 125 mg/dL suggests IMPAIRED HOMEOSTASIS per A.D.A. criteria. Potassium [Moles/Vol] 4.4 mmol/L 3.5-5.1 [facility] Work Phone: Sodium [Moles/Vol] 140 mmol/L 136-145 [facility] Work Phone: Laboratory - Chemistry and C hemistry - challengeon 02-27-2022 CO2 [Moles/Vol] 29.0 mmol/L 21.0-32.0 [facility] Work Phone: Urea nitrogen/Creatinine [Mass ratio] 16.6 mg/mg 10-20 [facility] Work Phone: No Panel Informationon 02-27 Estimated GFR (MDRD) Amer 93 mL/min >60 [facility] Work Phone: Comment on above: GFR Calc Estimated GFR (MDRD) Non-Af Amer 77 mL/min >60 [facility] Work Phone: Comment on above: Non- GFR Calc Serum or plasma calcium nigel urement (mass/volume)on 02-27-2022 Calcium [Mass/Vol] 9.0 mg/dL 8.5-10.1 [facility] Work Phone: Serum or plasma creatinine m easurement (mass/volume)on 02-27-2022 Creatinine [Mass/Vol] 0.78 mg/dL 0.55-1.02 [facility] Work Phone: Comment on above: The validity of the calculated GFR & GFRAA in patients over 70 years has not been determined. Clinical correlation is essential. Serum or plasma urea nitroge n measurement (mass/volume)on 02-27-2022 Urea nitrogen [Mass/Vol] 13 mg/dL 7-18 [facility] Work Phone: Thin prep Papanicolaou smear with manual screeningon 02-27-2022 Thin prep Papanicolaou smear with manual screening 5 5-15 [facility] Work Phone: Basophil percentageon 2021 Chloride [Moles/Vol] 104 mmol/L 98-[address] [facility] Work Phone: Glucose [Mass/Vol] 97 mg/dL 74-106 [facility] Work Phone: Potassium [Moles/Vol] 3.8 mmol/L 3.5-5.1 [facility] Work Phone: Sodium [Moles/Vol] 138 mmol/L 136-145 [facility] Work Phone: Laboratory - Chemistry and C hemistry - challengeon 11-08-2021 CO2 [Moles/Vol] 27.0 mmol/L 21.0-32.0 [facility] Work Phone: Urea nitrogen/Creatinine [Mass ratio] 18.4 mg/mg 10-20 [facility] Work Phone: No Panel Informationon 11-08 Estimated GFR (MDRD) Amer 89 mL/min >60 [facility] Work Phone: Comment on above: GFR Calc Estimated GFR (MDRD) Non-Af Amer 74 mL/min >60 [facility] Work Phone: Comment on above: Non- GFR Calc Serum or plasma calcium nigel urement (mass/volume)on 11-08-2021 Calcium [Mass/Vol] 8.7 mg/dL 8.5-10.1 [facility] Work Phone: Serum or plasma creatinine m easurement (mass/volume)on 11-08-2021 Creatinine [Mass/Vol] 0.82 mg/dL 0.55-1.02 [facility] Work Phone: Comment on above: The validity of the calculated GFR & GFRAA in patients over 70 years has not been determined. Clinical correlation is essential. Serum or plasma urea nitroge n measurement (mass/volume)on 11-08-2021 Urea nitrogen [Mass/Vol] 15 mg/dL 7-18 [facility] Work Phone: Thin prep Papanicolaou smear with manual screeningon 11-08-2021 Thin prep Papanicolaou smear with manual screening 7 11-20 [facility] Work Phone: Laboratory - Chemistry and C hemistry - challengeon 07-23-2021 Glucose [Mass/Vol] 124 mg/dL [facility] Work Phone: Vital Signs Date Time Vital Sign Value Performing Clinician Faci lity 10-13-2024 15:37-0400 Body height 170.[address] Na Bragg MD Work Phone: [facility] 10-13-2024 15:37-0400 Body mass index (BMI) [Ratio] 23.6 kg/m2 Dr. Na Bragg MD Work Phone: [facility] 10-13-2024 15:37-0400 Body temperature 97.7 [degF] Dr. Na Bragg MD Work Phone: [facility] 10-13-2024 15:37-0400 Body weight 68.[address] Na Bragg MD Work Phone: [facility] 10-13-2024 15:37-0400 Diastolic blood pressure 84 mm[Hg] Dr. Na Bragg MD Work Phone: [facility] 10-13-2024 15:37-0400 Heart rate 61 /min Dr. Na Bragg MD Work Phone: [facility] 10-13-2024 15:37-0400 Respiratory rate 16 /min Dr. Na Bragg MD Work Phone: [facility] 10-13-2024 15:37-0400 SaO2% (BldA) [Mass fraction] 98 % Dr. Na Bragg MD Work Phone: [facility] 10-13-2024 15:37-0400 Systolic blood pressure 134 mm[Hg] Dr. Na Bragg MD Work Phone: [facility] 07-12-2023 15:36-0500 Body height 172.[address] Na Bragg Work Phone: [facility] 07-12-2023 15:36-0500 Body mass index (BMI) [Ratio] 23.1 kg/m2 Dr. Na Bragg Work Phone: [facility] 07-12-2023 15:36-0500 Body temperature 99 [degF] Dr. Na Bragg Work Phone: [facility] 07-12-2023 15:36-0500 Body weight [address] Na Bragg Work Phone: [facility] 07-12-2023 15:36-0500 Diastolic blood pressure 82 mm[Hg] Dr. Na Bragg Work Phone: [facility] 07-12-2023 15:36-0500 Heart rate 61 /min Dr. Na Bragg Work Phone: [facility] 07-12-2023 15:36-0500 Respiratory rate 16 /min Dr. Na Bragg Work Phone: [facility] 07-12-2023 15:36-0500 SaO2% (BldA) [Mass fraction] 97 % Dr. Na Bragg Work Phone: [facility] 07-12-2023 15:36-0500 Systolic blood pressure 130 mm[Hg] Dr. Na Bragg Work Phone: [facility] 12-01-2022 10:10-0400 Body height 172.[address] Na Bragg Work Phone: [facility] 12-01-2022 10:10-0400 Body mass index (BMI) [Ratio] 23.2 kg/m2 Dr. Na Bragg Work Phone: [facility] 12-01-2022 10:10-0400 Body temperature 98.4 [degF] Dr. Na Bragg Work Phone: [facility] 12-01-2022 10:10-0400 Body weight 69.[address] Na Bragg Work Phone: [facility] 12-01-2022 10:10-0400 Diastolic blood pressure 82 mm[Hg] Dr. Na Bragg Work Phone: [facility] 12-01-2022 10:10-0400 Heart rate 52 /min Dr. Na Bragg Work Phone: [facility] 12-01-2022 10:10-0400 Respiratory rate 16 /min Dr. Na Bragg Work Phone: [facility] 12-01-2022 10:10-0400 SaO2% (BldA) [Mass fraction] 98 % Dr. Na Bragg Work Phone: [facility] 12-01-2022 10:10-0400 Systolic blood pressure 150 mm[Hg] Dr. Na Bragg Work Phone: [facility] 02-27-2022 13:12-0400 Body height 172.[address] Na Bragg Work Phone: [facility] Work Phone: 02-27-2022 13:12-0400 Body mass index (BMI) [Ratio] 22.8 kg/m2 Dr. Na Bragg Work Phone: [facility] Work Phone: 02-27-2022 13:12-0400 Body temperature 97.3 [degF] Dr. Na Bragg Work Phone: [facility] Work Phone: 02-27-2022 13:12-0400 Body weight 68.[address] Na Bragg Work Phone: [facility] Work Phone: 02-27-2022 13:12-0400 Diastolic blood pressure 96 mm[Hg] Dr. Na Bragg Work Phone: [facility] Work Phone: 02-27-2022 13:12-0400 Heart rate 70 /min Dr. Na Bragg Work Phone: [facility] Work Phone: 02-27-2022 13:12-0400 Respiratory rate 18 /min Dr. Na Bragg Work Phone: [facility] Work Phone: 02-27-2022 13:12-0400 SaO2% (BldA) [Mass fraction] 99 % Dr. Na Bragg Work Phone: [facility] Work Phone: 02-27-2022 13:12-0400 Systolic blood pressure 150 mm[Hg] Dr. Na Bragg Work Phone: [facility] Work Phone: 11-14-2021 08:52-0400 Body mass index (BMI) [Ratio] 23.4 kg/m2 Dr. Na Bragg Work Phone: [facility] Work Phone: 11-14-2021 08:52-0400 Body temperature 98.1 [degF] Dr. Na Bragg Work Phone: [facility] Work Phone: 11-14-2021 08:52-0400 Body weight 69.[address] Na Bragg Work Phone: [facility] Work Phone: 11-14-2021 08:52-0400 Diastolic blood pressure 90 mm[Hg] Dr. Na Bragg Work Phone: [facility] Work Phone: 11-14-2021 08:52-0400 Heart rate 86 /min Dr. Na Bragg Work Phone: [facility] Work Phone: 11-14-2021 08:52-0400 Respiratory rate 16 /min Dr. Na Bragg Work Phone: [facility] Work Phone: 11-14-2021 08:52-0400 SaO2% (BldA) [Mass fraction] 98 % Dr. Na Bragg Work Phone: [facility] Work Phone: 11-14-2021 08:52-0400 Systolic blood pressure 140 mm[Hg] Dr. Na Bragg Work Phone: [facility] Work Phone: 09-07-2021 09:13-0500 Body height 172.[address] Na Bragg Work Phone: [facility] Work Phone: 09-07-2021 09:13-0500 Body mass index (BMI) [Ratio] 22.9 kg/m2 Dr. Na Bragg Work Phone: [facility] Work Phone: 09-07-2021 09:13-0500 Body temperature 96.7 [degF] Dr. Na Bragg Work Phone: [facility] Work Phone: 09-07-2021 09:13-0500 Body weight 68.[address] Na Bragg Work Phone: [facility] Work Phone: 09-07-2021 09:13-0500 Diastolic blood pressure 100 mm[Hg] Dr. Na Bragg Work Phone: [facility] Work Phone: 09-07-2021 09:13-0500 Heart rate 58 /min Dr. Na Bragg Work Phone: [facility] Work Phone: 09-07-2021 09:13-0500 Respiratory rate 16 /min Dr. Na Bragg Work Phone: [facility] Work Phone: 09-07-2021 09:13-0500 SaO2% (BldA) [Mass fraction] 99 % Dr. Na Bragg Work Phone: [facility] Work Phone: 09-07-2021 09:13-0500 Systolic blood pressure 150 mm[Hg] Dr. Na Bragg Work Phone: [facility] Work Phone: 08-24-2021 14:55-0500 Body mass index (BMI) [Ratio] 22.9 kg/m2 Dr. Na Bragg Work Phone: [facility] Work Phone: 08-24-2021 14:55-0500 Body temperature 98.8 [degF] Dr. Na Bragg Work Phone: [facility] Work Phone: 08-24-2021 14:55-0500 Body weight 68.[address] Na Bragg Work Phone: [facility] Work Phone: 08-24-2021 14:55-0500 Diastolic blood pressure 108 mm[Hg] Dr. Na Bragg Work Phone: [facility] Work Phone: 08-24-2021 14:55-0500 Heart rate 82 /min Dr. Na Bragg Work Phone: [facility] Work Phone: 08-24-2021 14:55-0500 Respiratory rate 16 /min Dr. Na Bragg Work Phone: [facility] Work Phone: 08-24-2021 14:55-0500 SaO2% (BldA) [Mass fraction] 96 % Dr. Na Bragg Work Phone: [facility] Work Phone: 08-24-2021 14:55-0500 Systolic blood pressure 210 mm[Hg] Dr. Na Bragg Work Phone: [facility] Work Phone: 07-27-2021 14:14-0500 Body mass index (BMI) [Ratio] 22.5 kg/m2 Dr. Na Bragg Work Phone: [facility] Work Phone: 07-27-2021 14:14-0500 Body temperature 97.2 [degF] Dr. Na Bragg Work Phone: [facility] Work Phone: 07-27-2021 14:14-0500 Body weight 67.[address] Na Bragg Work Phone: [facility] Work Phone: 07-27-2021 14:14-0500 Diastolic blood pressure 120 mm[Hg] Dr. Na Bragg Work Phone: [facility] Work Phone: 07-27-2021 14:14-0500 Heart rate 96 /min Dr. Na Bragg Work Phone: [facility] Work Phone: 07-27-2021 14:14-0500 Respiratory rate 18 /min Dr. Na Bragg Work Phone: [facility] Work Phone: 07-27-2021 14:14-0500 SaO2% (BldA) [Mass fraction] 99 % Dr. Na Bragg Work Phone: [facility] Work Phone: 07-27-2021 14:14-0500 Systolic blood pressure 220 mm[Hg] Dr. Na Bragg Work Phone: [facility] Work Phone: 07-23-2021 09:49-0500 Body mass index (BMI) [Ratio] 22 kg/m2 Dr. Na Bragg Work Phone: [facility] Work Phone: 07-23-2021 09:49-0500 Body temperature 98.4 [degF] Dr. Na Bragg Work Phone: [facility] Work Phone: 07-23-2021 09:49-0500 Body weight 65.[address] Na Bragg Work Phone: [facility] Work Phone: 07-23-2021 09:49-0500 Diastolic blood pressure 86 mm[Hg] Dr. Na Bragg Work Phone: [facility] Work Phone: 07-23-2021 09:49-0500 Heart rate 87 /min Dr. Na Bragg Work Phone: [facility] Work Phone: 07-23-2021 09:49-0500 Respiratory rate 16 /min Dr. Na Bragg Work Phone: [facility] Work Phone: 07-23-2021 09:49-0500 SaO2% (BldA) [Mass fraction] 96 % Dr. Na Bragg Work Phone: [facility] Work Phone: 07-23-2021 09:49-0500 Systolic blood pressure 142 mm[Hg] Dr. Na Bragg Work Phone: [facility] Work Phone: Encounters Encounter Date Encounter Type Care Provider Facility Start: 01-06-2025 ambulatory Na Bragg Facili ty:[facility] Start: 10-13-2024 End: 10-13-[address] Na Bragg MD -[facility] Work Phone: Start: 10-13-2024 End: 10-13-[address] Na Bragg MD [facility] Start: 10-13-2024 End: 10-13-[address] Na Bragg MD Work Phone: [facility] Work Phone: Start: 10-13-2024 End: 10-13-2024 ambulatory Na Bragg Facility:[facility] Start: 06-10-2024 End: 06-10-2024 Emergency department patient visit Azar Brower Facility:[facility] Start: 03-06-2024 End: 03-06-2024 ambulatory Miguelito Benitez Facility:[facility] Start: 03-03-2024 End: 03-03-[facility] Start: 03-03-2024 End: 03-03-2024 ambulatory [facility] Facility:[facility] Start: 01-24-2024 End: 01-24-2024 ambulatory Na Jessica:DIANA Start: 07-12-2023 End: 07-12-[address] Na Bragg Work Phone: [facility] Work Phone: Start: 07-12-2023 End: 07-12-[address] Na Bragg Work Phone: [facility] Work Phone: Start: 01-02-2023 End: 01-02-[address] Na Bragg Work Phone: [facility] Work Phone: Start: 01-02-2023 End: 01-02-[address] Na Bragg Work Phone: [facility] Work Phone: Start: 12-01-[address] Na Bragg Work Phone: [facility] Start: 12-01-2022 End: 12-01-[address] Na Bragg Work Phone: [facility] Work Phone: Start: 12-01-2022 End: 12-01-2022 Encounter for general adult medical examination without abnormal findings Dr. Na Bragg Work Phone: [facility] Start: 12-01-2022 End: 12-01-[address] Na Bragg Work Phone: [facility] Work Phone: Start: 02-27-2022 End: 02-27-[address] Na Bragg Work Phone: [facility] Work Phone: Start: 02-27-2022 End: 02-27-[address] Na Bragg Work Phone: [facility] [place] Start: 11-14-2021 End: 11-14-[address] Na Bragg Work Phone: [facility] Start: 11-08-2021 End: 11-08-[address] Na Bragg Work Phone: [facility] Start: 09-07-2021 End: 09-07-[address] Na Bragg Work Phone: [facility] Start: 08-24-2021 End: 08-24-[address] Na Bragg Work Phone: [facility] [place] Start: 07-27-2021 End: 07-27-[address] Na Bragg Work Phone: [facility] [place] Start: 07-23-2021 End: 07-23-[address] Na Bragg Work Phone: [facility] Procedures Date Procedure Procedure Detail Performing Clinician Start: 01-02-2023 Dual energy X-ray absorptiometry Dr. Na Bragg Work Phone: Start: 01-02-2023 Screening mammography Cande Bragg Work Phone: Plan of Treatment Date Care Activity Detail Author Start: 01-02-2023 Dual energy X-ray absorptiometry Dexa Bone Density Study [facility] Start: 01-02-2023 DXA Bone [Mass/Area] Bone density [facility] Start: 12-01-2022 Patient referral [facility] Work Phone: DXA Bone [Mass/Area] Bone density [facility] MG Breast - bilatera l Screening [facility] Patient referral [facility] Work Phone: Immunizations Immunization Date Immunization Notes Care Provider Fa fadi 10-05-2020 Covid (Pfizer) Dr. Na Bragg Work Phone: [facility] 09-14-2020 Covid (Pfizer) Dr. Na Bragg Work Phone: [facility] 07-11-2014 Influenza, injectabl e, Madin Doreen Canine Kidney, preservative free, quadrivalent Dr. Na Bragg MD Work Phone: [facility] 12-15-2013 hepatitis A vaccine, adult dosage Dr. Na Bragg MD Work Phone: [facility] 12-15-2013 tetanus toxoid, redu isabelle diphtheria toxoid, and acellular pertussis vaccine, adsorbed Dr. Na Bragg MD Work Phone: [facility] 12-23-2003 hepatitis A vaccine, pediatric/adolescent dosage, [address] Na Bragg MD Work Phone: [facility] 12-23-[address], inactivated [address] Na Bragg MD Work Phone: [facility] 12-23-[address] Na Bragg MD Work Phone: [facility] Payers Date Payer Category Payer Self-pay [id number] 2023 Private Health Insurance 101 [id number] Medicare [id number] Unknown [id number] 2.16.8 [id number] Unknown [id number] 2.16.8 [id number] Unknown [id number] 2.16.8 [id number] Unknown [id number] 2.16.8 [id number] Unknown [id number] 2.16.8 [id number] Unknown [id number] 2.16.8 [id number] Unknown [id number] 2.16.8 [id number] Unknown [id number] 2.16.8 [id number] Unknown [id number] 2.16.8 [id number] Unknown [id number] 2.16.8 [id number] Unknown [id number] 2.16.8 [id number] Social History Date Type Detail Facility Start: 09-07-2021 End: 07-12-2023 Tobacco smoking status TNIS Unknown if ever smoked [facility] Start: 1950 Sex Assigned At Female [facility] Start: 10-13-2024 Tobacco smoking stat us TNIS Never smoked tobacco (finding) [facility] Start: 10-16-2024 Sex Female (finding) [facility] Gender Identity Identifies as fe male gender (finding) [facility] Sexual Orientation Heterosexual (finding) [facility] Medical Equipment Procedure Code Equipment Code Equipment Origin al Text Equipment Identifier Dates ORIF, ankle 3.0 CORTICAL SCREW FDA Start : 12-12-2023 ORIF, ankle 3.5 CORTICAL SCREW FDA Start : 12-12-2023 ORIF, ankle 3.5 CORTICAL SCREW FDA Start : 12-12-2023 ORIF, ankle 4.0 CANCELLOUS SCREW FDA Sta rt: 12-12-2023 ORIF, ankle LOCKING THIRD TUBULAR PLATES FDA Start: 12-12-2023 Evaluation note 10-13-2024 Note Date & Type Note Facility 10-13-2024 Evaluation note Diagnosis Onset Date Resolution Health care maintenance acute A pril 2024 3:06pm Hypertension chronic October 13, 025 3:06pm Osteopenia with high risk of fracture chronic October 13, 2024 3:06pm [facility] Work Phone: Evaluation note Note Date & Type Note Facility Evaluation note Diagnosis Onset Date Anxiety acute GERD (gastroesophageal reflux disease) chronic Hypertension chronic GERD (gastroesophageal reflux disease) chronic Hypertension chronic GERD (gastroesophageal reflux disease) chronic Hypertension chronic [facility] Work Phone: Evaluation note Note Date & Type Note Facility Evaluation note Diagnosis Onset Date Heart palpitations acute Hypertension chronic Anxiety chronic Hypertension chronic [facility] Work Phone: Evaluation note Note Date & Type Note Facility Evaluation note Diagnosis Onset Date Health care maintenance acut e Heart palpitations acute Hypertension chronic [facility] Work Phone: Evaluation note Note Date & Type Note Facility Evaluation note Diagnosis Onset Date Anxiety chronic GERD (gastroesophageal reflux disease) chronic Hypertension chronic Osteopenia with high risk of fracture chronic [facility] Work Phone: Reason for referral (narrative) Note Date & Type Note Facility Reason for referral (narrative) No reason for referral information available [facility] Work Phone: Chief Complaint and Reason for Visit Chief Complaint SHAKY, COUGH, STOMAC H UPSET? [employer], 4 WK F/U, SAW JEWEL 06/29, 30MIN 1 M FU 2 M FU Reason for Visit Anxiety GERD (gastroesophageal reflux disease) Hypertension GERD (gastroesophageal reflux disease) Hypertension GERD (gastroesophageal reflux disease) Hypertension Chief Complaint 2 M FU chk up Reason for Visit Heart palpitations Hypertension Anxiety Hypertension Chief Complaint check up SCREENING Reason [facility] Visit [facility] Heart palpitations Hypertension Chief Complaint fu Reason for Visit Anxiety GERD (gastroesophageal reflux disease) Hypertension Osteopenia with high risk of fracture Chief Complaint Admit Date fu October 13, 2024 3:06 pm Reason for Visit Admit Date Health care maintenance October 13, 2024 3:06pm Hypertension Lulú 7th, 2025 3:06 pm Osteopenia with high risk of fracture Ap ril 2024 3:06pm Family History No Family History Records Found Relationship Condition Age at Onset Recorded Date/T tea father Malignant neoplasm Unknown Hypertension Unknown grandfather Myocardial infarction 70 mother High blood cholesterol Unknown Malignant neoplasm of skin Unknown Summary Purpose Advance Directives No Advanced Directives Records Found Additional Source Comments Goals (unrecognized section and content) Goals may be documented in a n alternate sectionGoals may be documented in an alternate sectionGoals may be documented in an alternate sectionGoals may be documented in an alternate sectionGoals may be documented in an alternate sectionGoals may be documented in an alternate section Care Teams (unrecognized sec tion and content) Team Status: Active Member Role Status Dates Dr. Muna Iverson MD Family Provider Active Dr. Na Bragg MD Primary Care Provider Active Team Status: Inactive Member Role Status Dates Dr. Na Bragg MD Primary Care P nancy, Attending Provider, Referring Provider Active Team Status: Inactive Member Role Status Dates Dr. Na Bragg MD Primary Care Provider, Atten ding Provider Active Team Status: Active Member Role Status Dates Dr. Na Bragg MD Primary Care Provider, Atten ding Provider Active Dr. Maria L Bragg MD Referring Provider Active Team Status: Inactive Member Role Status Dates Dr. Na Bragg MD Primary Care Provider, Atten ding Provider Active Dr. Maria L Bragg MD Referring Provider Active Team Status: Inactive Member Role Status Dates Dr. Na Bragg MD Primary Care Provider Active Start: October 13, 2024 End: October 13, 2024 Dr. Na Bragg MD Attending Provider Active Start: October 13, 2024 End: October 13, 2024 Dr. Na Bragg MD Referring Provider Active Start: October 13, 2024 End: October 13, 2024 INFORMATION SOURCE (unrecogn ized section and content) DATE CREATED AUTHOR 01/04/2025 [facility] FOR RECORDS PERTAINING TO PATIENTS WHO ARE OR HAVE BEEN ENROLLED IN A CHEMICAL DEPENDENCY/SUBSTANCEABUSE PROGRAM, SOME INFORMATION MAY BE OMITTED. This clinical summary was aggregated from multiple sources. Caution should be exercised in using it in the provision of clinical care. This summary normalizes information from multiple sources, and as a consequence, information in this document may materially change the coding, format and clinical context of patient data. In addition, data may be omitted in some cases. CLINICAL DECISIONS SHOULD BE BASED ON THE PRIMARY CLINICAL RECORDS. [employer] [facility]. provides no warranty or guarantee of the accuracy or completeness of information in this document.
== END | disposition home or self-care (01) ==
LOC: OPBI 10:04
PROVIDERS: PCP Internal Medicine; Referring Provider Internal Medicine; Visit Provider Internal Medicine
DX: Z12.31 Encounter for screening mammogram for malignant neoplasm of breast (principal); Z13.820 Encounter for screening for osteoporosis; Z78.0 Asymptomatic menopausal state
CPT/HCPCS: 77063; 77067; 77080

== ENCOUNTER → 2025-01-16 | Outpatient (CLI) | payer MEDICARE, SELFPAY ==
--- NOTE | 2025-01-16 09:22 | BI_ITS ---
PROCEDURE: DIAG MAMM W/CAD, UNILAT; RT BRST UNILAT CHEMA ADD-ON; BREAST LIMITED UNILATERAL REASON FOR EXAM: 74-year-old female presents for right breast findings seen on examination of 01/06/2025. TECHNIQUE: DIAG MAMM W/CAD, UNILAT; RT BRST UNILAT CHEMA ADD-ON; BREAST LIMITED UNILATERAL COMPARISON: 01/06/2025, 01/02/2023 FINDINGS: RIGHT BREAST MAMMOGRAM: There are scattered areas of fibroglandular density. Follow-up examination performed for the right breast mass seen on examination of 01/06/2025. On the present examination, there is an irregular high density spiculated mass in the upper outer right breast at posterior depth, that persist. RIGHT BREAST ULTRASOUND: Ultrasound was targeted to the right breast and right axilla. There is an irregular hypoechoic mass with posterior shadowing and vascular flow adjacent to the lesion in the right breast at 10 o'clock 7 cm from the nipple, measuring 2.0 x 1.7 x 1.1 cm. This is a correlate for the mammographic finding. The remainder of the right breast was imaged demonstrating a 0.5 cm cyst at 12 o'clock 3 cm from the nipple. There are no additional suspicious sonographic findings in the right breast. There are 2 architecturally normal-appearing right axillary lymph nodes. BI/DIAG MAMM W/CAD, UNILAT IMPRESSION: Suspicious right breast mass at 10 o'clock. Recommend tissue sampling with ult rasound-guided core needle biopsy. OVERALL FINAL ASSESSMENT BI-RADS 5: HIGHLY SUGGESTIVE OF MALIGNANCY. RECOMMENDATION: Biopsy Recommended A letter with findings and recommendations will be mailed to the patient. Reading Location: [id number]
--- NOTE | 2025-01-16 09:22 | BI_ITS ---
PROCEDURE: DIAG MAMM W/CAD, UNILAT; RT BRST UNILAT CHEMA ADD-ON; BREAST LIMITED UNILATERAL REASON FOR EXAM: 74-year-old female presents for right breast findings seen on examination of 01/06/2025. TECHNIQUE: DIAG MAMM W/CAD, UNILAT; RT BRST UNILAT CHEMA ADD-ON; BREAST LIMITED UNILATERAL COMPARISON: 01/06/2025, 01/02/2023 FINDINGS: RIGHT BREAST MAMMOGRAM: There are scattered areas of fibroglandular density. Follow-up examination performed for the right breast mass seen on examination of 01/06/2025. On the present examination, there is an irregular high density spiculated mass in the upper outer right breast at posterior depth, that persist. RIGHT BREAST ULTRASOUND: Ultrasound was targeted to the right breast and right axilla. There is an irregular hypoechoic mass with posterior shadowing and vascular flow adjacent to the lesion in the right breast at 10 o'clock 7 cm from the nipple, measuring 2.0 x 1.7 x 1.1 cm. This is a correlate for the mammographic finding. The remainder of the right breast was imaged demonstrating a 0.5 cm cyst at 12 o'clock 3 cm from the nipple. There are no additional suspicious sonographic findings in the right breast. There are 2 architecturally normal-appearing right axillary lymph nodes. BI/Rt Brst Unilat Chema Add-On IMPRESSION: Suspicious right breast mass at 10 o'clock. Recommend tissue sampling with ult rasound-guided core needle biopsy. OVERALL FINAL ASSESSMENT BI-RADS 5: HIGHLY SUGGESTIVE OF MALIGNANCY. RECOMMENDATION: Biopsy Recommended A letter with findings and recommendations will be mailed to the patient. Reading Location: [id number]
== END | disposition home or self-care (01) ==
LOC: OPBI 09:19
PROVIDERS: PCP Internal Medicine; Referring Provider Internal Medicine; Visit Provider Internal Medicine
DX: N63.11 Unspecified lump in the right breast, upper outer quadrant (principal)
CPT/HCPCS: 76642; 77061; 77065; G0279

== ENCOUNTER → 2025-01-21 | Outpatient (CLI) | payer MEDICARE, SELFPAY ==
--- NOTE | 2025-01-21 09:40 | BRBX_PTH ---
PATIENT: WANDA TURK LOC: [facility] U#:[id number] AGE/SX: 74/F ROOM: RE01/21/[address]: Dr. Po Vernon MD : 1950 BED: DIS: 01/21/2025 SPEC #: [id number] RECD: 01/21/25 10:21 STATUS: CHANO REQ #: [id number] GUANACO: 01/21/25 09:[address]: Po Vernon DEPT: SURGICAL PATHOLOGY RECD BY: Raghu Gutierrez ENTERED: 01/21/25 12:12 SP TYPE: BREAST BX OTHR DR: Dr. Na Bragg MD Tissues: A - Right breast, NOS Procedures: Immunohistochemical Stains Surgery Specimen Level IV IHC Stain ADDITIONAL HEADER OPERATION: Right breast biopsy PRE-OP DIAGNOSIS: Right breast TISSUE SUBMITTED: A- Right breast tissue Ischemic Time: <1 minute Fixation Time: 9 hours, 50 minutes MICROSCOPIC DIAGNOSIS A. Breast, right, core biopsy: - Invasive lobular carcinoma, Grade 2 (tubule 3, nuclear 2, mitosis 1), at least 1.0 cm. - Ecadherin negative. - ER: positive (90%, strong intensity) - AR: positive (80%, strong intensity). - [id number]: PENDING, to be reported in an addendum. - Ki67q: 10% (manual immunohistochemical method). MICROSCOPIC DESCRIPTION Slides are reviewed. All matched controls reacted appropriately. These tests were developed and their performance characteristics determined by [facility]. They may not have been cleared or approved by the U.S. Food and Drug Administration. The FDA has determined that such clearance or approval is not necessary.? The above immunohistochemical/dualISH?markers are reviewed by the Pathologist. GROSS DESCRIPTION A. Received in formalin labeled with the patient's name and date of . Designated as R breast are approximately 4 whalen-yellow tissue cores, 0.8 cm to 2.0 cm in length by 0.2 cm in diameter. Entirely submitted in 2 cassettes. Cold ischemic time: <1 minuteFormalin fixation time: 9 hours, 50 minutes PA 01/21/2025 CPT:42786,53666,60680l1 ADDENDUM ADDENDUM ADDENDUM ADDENDUM ADDENDUM ADDENDUM ADDENDUM ADDENDUM ADDENDUM ADDENDUM ADDENDUM ADDENDUM ADDENDUM ADDENDUM ADDENDUM ADDENDUM ADDENDUM 01/30/2025 13:10 ADDENDUM 01/30/2025 13:10 ADDENDUM 01/30/2025 13:10 ADDENDUM 02/05/2025 09:20 ADDENDUM 01/30/2025 13:10 ADDENDUM 01/30/2025 13:10 This addendum is to report the [id number] performed at [facility]: [id number]: equivocal (2+) [id number]: PENDING to be reported in a subsequent addendm. All controls show appropriate reactivity. All immunohistochemistry, in situ hybridization, and histochemical tests were developed by and are performed at the [facility], [address] [place] [address], [place] [address]. All Immunofluorescent (IF)?tests were developed by and are performed at the [facility], [address], [place], [place] ?[address]. All tests reported here, except those addressing HER2 overexpression as a predictive marker, have not been cleared by or approved by the US Food and Drug Administration (FDA). The laboratory is regulated under CLIA as qualified to perform high-complexity testing. The tests are used for clinical purposes. They should not be regarded as investigational or for research. This addendum is added to incorporate an outside pathology consultation report. The case was examined at [facility] (#[id number]) and the following diagnosis was rendered. A. Right breast, core biopsy: HER2 Score: Negative HER2 SCORE REPORT: HER2 SCORE: NEGATIVE HER2 / CEP17 RATIO: 1.3 HER2 COPY NUMBER / CELL: 3.4 Please see complete above mentioned consultation report in EMR
--- NOTE | 2025-01-21 09:40 | BRBX_PTH ---
PATIENT: WANDA TURK LOC: [facility] U#:[id number] AGE/SX: 74/F ROOM: RE01/21/[address]: Dr. Po Vernon MD : 1950 BED: DIS: 01/21/2025 SPEC #: [id number] RECD: 01/21/25 10:21 STATUS: CHANO REQ #: [id number] GUANACO: 01/21/25 09:[address]: Po Vernon DEPT: SURGICAL PATHOLOGY RECD BY: Raghu Gutierrez ENTERED: 01/21/25 12:12 SP TYPE: BREAST BX OTHR DR: Dr. Na Bragg MD Tissues: A - Right breast, NOS Procedures: Immunohistochemical Stains Surgery Specimen Level IV IHC Stain ADDITIONAL HEADER OPERATION: Right breast biopsy PRE-OP DIAGNOSIS: Right breast TISSUE SUBMITTED: A- Right breast tissue Ischemic Time: <1 minute Fixation Time: 9 hours, 50 minutes MICROSCOPIC DIAGNOSIS A. Breast, right, core biopsy: - Invasive lobular carcinoma, Grade 2 (tubule 3, nuclear 2, mitosis 1), at least 1.0 cm. - Ecadherin negative. - ER: positive (90%, strong intensity) - CA: positive (80%, strong intensity). - [id number]: PENDING, to be reported in an addendum. - Ki67q: 10% (manual immunohistochemical method). MICROSCOPIC DESCRIPTION Slides are reviewed. All matched controls reacted appropriately. These tests were developed and their performance characteristics determined by [facility]. They may not have been cleared or approved by the U.S. Food and Drug Administration. The FDA has determined that such clearance or approval is not necessary.? The above immunohistochemical/dualISH?markers are reviewed by the Pathologist. GROSS DESCRIPTION A. Received in formalin labeled with the patient's name and date of . Designated as R breast are approximately 4 whalen-yellow tissue cores, 0.8 cm to 2.0 cm in length by 0.2 cm in diameter. Entirely submitted in 2 cassettes. Cold ischemic time: <1 minuteFormalin fixation time: 9 hours, 50 minutes MO 01/21/2025 CPT:[id number] ADDENDUM ADDENDUM ADDENDUM ADDENDUM ADDENDUM ADDENDUM ADDENDUM ADDENDUM ADDENDUM ADDENDUM ADDENDUM ADDENDUM ADDENDUM ADDENDUM ADDENDUM ADDENDUM ADDENDUM 01/30/2025 13:10 ADDENDUM 01/30/2025 13:10 ADDENDUM 01/30/2025 13:10 ADDENDUM 02/05/2025 09:20 ADDENDUM 01/30/2025 13:10 ADDENDUM 01/30/2025 13:10 This addendum is to report the [id number] performed at [facility]: [id number]: equivocal (2+) [id number]: PENDING to be reported in a subsequent addendm. All controls show appropriate reactivity. All immunohistochemistry, in situ hybridization, and histochemical tests were developed by and are performed at the [facility], [address] [place] [address], [place] [address]. All Immunofluorescent (IF)?tests were developed by and are performed at the [facility], [address], [place], [place] ?[address]. All tests reported here, except those addressing HER2 overexpression as a predictive marker, have not been cleared by or approved by the US Food and Drug Administration (FDA). The laboratory is regulated under CLIA as qualified to perform high-complexity testing. The tests are used for clinical purposes. They should not be regarded as investigational or for research. This addendum is added to incorporate an outside pathology consultation report. The case was examined at [facility] (#[id number]) and the following diagnosis was rendered. A. Right breast, core biopsy: HER2 Score: Negative HER2 SCORE REPORT: HER2 SCORE: NEGATIVE HER2 / CEP17 RATIO: 1.3 HER2 COPY NUMBER / CELL: 3.4 Please see complete above mentioned consultation report in EMR
== END | disposition home or self-care (01) ==
PROVIDERS: PCP Internal Medicine; Visit Provider Surgery
DX: C50.911 Malignant neoplasm of unspecified site of right female breast (principal); Z17.0 Estrogen receptor positive status [ER+]
CPT/HCPCS: 88305; 88341; 88342

== ENCOUNTER 2025-03-13 08:05 | Day surgery (SDC) | payer MEDICARE, SELFPAY ==
[2025-03-13] VITALS (9 sets, daily range): BP systolic 83–173; BP diastolic 56–80; PULSE 50–57; RESP 16–18; TEMP 36.2–36.4; O2SAT 93–97; BMI 22.8
--- NOTE | 2025-03-13 08:29 | NM_ITS ---
PROCEDURE: LYMPH NODE INJECTION ONLY 03/13/2025 REASON FOR EXAM: INVASIVE LOBULAR CARCINOMA TECHNIQUE: Procedure Code: NMLYMPHINJ Modality: NM Procedure: LYMPH NODE INJECTION ONLY Injection for sentinel node imaging. RADIOPHARMACEUTICAL DOSE: 550 uCi of Tilmanocept injected subdermally at 1 cm above the right nipple. COMPARISON: None NM/Lymph Node Injection Only IMPRESSION: Successful subdermal injection of 550 uCi of Tilmanocept for sentinel node imag ing. Reading Location: [facility]
[2025-03-13] MEDS: Lactated Ringers 1,000 ML 15 ML IV (08:40)
--- NOTE | 2025-03-13 09:14 | PRE.ANES_ITS ---
ASA Classification* ASA Classification ASA Classification: 2 Assessment & Plan Anesthesia* Anesthesia Assessment Anesthesia Assessment: Discussed sedation and/or anesthesia options, risks, benefits, and alternatives with patient/parents/legal guardian/POA. Questions invited. The patient/parents/legal guardian/POA seems to understand and agrees to proceed with anesthesia plan. Reviewed the physical assessment, medical history, allergy history and patient home medications list prior to surgery/procedure/anesthetic and documented any changes. Performed airway and anesthesia risk assessments. Anesthesia Type Anesthesia Type: General History Source History Obtained from:: Patient and Chart Anesthesia Focused Assessment* Temperature: 97.6 F Pulse Rate: 50 Blood Pressure: 173/80 Respiratory Rate: 16 Pulse Ox: 97 Oxygen Delivery Method: Room Air Airway Assessment Mouth opens: >3 cm Mallampati Score: I Teeth Condition: Caps/Crowns (Patient has a crown. It is tight.) Neck Range of motion (ROM): Full ROM Labs Anesthesia Preop lab: CBC WBC 6.2 K/mm3 (4.4-11.0) 10/13/24 15:58 10/13/24 RBC 4.58 M/mm3 (4.2-5.4) 10/13/24 15:58 10/13/24 Hgb 12.8 g/dL (12.0-15.0) 10/13/24 15:58 10/13/24 Hct 39.2 % (37-47) 10/13/24 15:58 10/13/24 Plt Count 197 K/mm3 (150-450) 10/13/24 15:58 10/13/24 CHEMISTRY Potassium 5.0 mmol/L (3.3-5.1) 10/13/24 15:58 10/13/24 Sodium 140 mmol/L (133-145) 10/13/24 15:58 10/13/24 Magnesium 2.3 mg/dL (1.6-2.6) 06/29/21 09:36 06/29/21 BUN 17 mg/dL (4-19) 10/13/24 15:58 10/13/24 Creatinine 0.79 mg/dL (0.70-1.20) 10/13/24 15:58 10/13/24 Glucose [facility] 124 mg/dL (70-110) H 07/23/21 10:54 Glucose 89 mg/dL (70-99) 10/13/24 15:58 10/13/24 POC Glucose 101 mg/dL (74-106) 06/10/24 15:14 06/10/24 TSH 1.60 uIU/mL (0.358-3.74) 06/29/21 09:36 COAG Pre-Assessment Diagnosis/Proposed Procedure Planned Operative Procedure(s): RIGHT BREAST STEREOTACTIC WIRE LOCALIZED LUMPECTOMY WITH SLN BIOPSY Anesthesia History 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 When Was Last Pacemaker Check QUESTION #4 FULL TEXT: You/Your Family Experience fever (hyperthermia) with Anesthesia Last Oral Intake Last Oral intake: Last Oral Intake NPO since 00:00 03/13/25 08:27 Meds taken in AM with sips of Yes 03/13/25 08:27 water? Meds patient instructed to losartan 03/13/25 08:27 take am of surgery PONV PONV - air intelligence specialist: PONV - air intelligence specialist Female Yes 03/02/25 15:09 HX of Motion Sickness No 03/02/25 15:09 HX of N/V After Surgery No 03/02/25 15:09 Non-Smoker Yes 03/02/25 15:09 Duration of Surgery greater Yes 03/02/25 15:09 than 60 minutes Number of Risk Factors 3 03/02/25 15:09 PONV Score Moderate Risk 03/02/25 15:09 Height & Weight Height & Weight: Anesthesia: Height & Weight Height 5 ft 7 in 03/13/25 08:27 Weight: 66 kg 03/13/25 08:27 Body Mass Index (BMI) 22.8 03/13/25 08:27 Respiratory Assessment Respiratory Assessment - air intelligence specialist: Respiratory Tract Infection Hx - air intelligence specialist Hx Respiratory Tract Infection No 03/02/25 15:09 STOP Sleep Apnea STOP Sleep Apnea - air intelligence specialist: STOP Sleep Apnea - air intelligence specialist Hx Hypertension Yes: CONTROLLED WITH MED 03/02/25 15:09 Hx Sleep Apnea No 03/02/25 15:09 CPAP BIPAP Do you snore loudly (louder No 03/02/25 15:09 than talking or can be heard Do you often feel tired/ No 03/02/25 15:09 fatigued/ sleepy during daytime? Has anyone observed you stop No 03/02/25 15:09 breathing during sleep? STOP Results Negative 03/02/25 15:09 QUESTION #5 FULL TEXT : Do you snore loudly (louder than talking or can be heard through closed doors)? 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 Specify any problems Hx of Preganancy in last 3 No 03/02/25 15:09 Months Nurse Filling Out Transfusion DSCHRIBER 03/02/25 15:09 & Questions: Date: 03/02/25 03/02/25 15:09 Time: 15:10 03/02/25 15:09 Patient unable to answer at this time (ie. confused, unrespo /Reproduction History /Reproductive History - air intelligence specialist: /Reproductive Hx- air intelligence specialist Hx Now No 03/02/25 15:09 Gestational Age (in weeks): EDC: Hx Hx Para Hx Section SAB No 03/02/25 15:09 Active Medications Active Medications: Current Medications Generic Name Dose Route Start Last Admin Trade Name Freq PRN Reason Stop Dose Admin Lactated Ringer's 1,000 mls @ 15 mls/hr 03/13/25 08:15 03/13/25 08:40 IV 15 mls/hr .Q48H TERRY Administration PFSH Medical History Autism Breast mass, right Wears glasses Non-smoker Osteopenia Hypertension History of skin cancer Home Medications ?Medication ?Instructions ?Recorded ?Last Taken ?Type multivitamin 1 tab PO DAILY 06/29/21 Unkn own History calcium carbonate 600 mg PO BID #180 tabs 09/28 Unknown Rx cholecalciferol (vitamin D3) 50 50 mcg PO DAILY #90 ca ps 02/08/23 Unknown Rx mcg (2,000 unit) capsule ibandronate 150 mg tablet 150 mg PO QMONTH #7 tabs Unknown Rx losartan 25 mg tablet 25 mg PO BID #180 tabs 11/0303/13/25 Rx propranolol 60 mg capsule,24 60 mg PO QHS #90 caps 08/02 Unknown Rx hr,extended release Allergy/AdvReac Type Severity Reaction Status Date / Time No Known Allergies Allergy Verified 03/13/25 08:25 Family History Father Cancer brain or spinal uncertain Hypertension Grandfather Myocardial infarction, Onset Age: 70 Mother High cholesterol Skin cancer Surgical History (Updated 03/13/25 @ 09:[address] Zay Blancas MD) Hx of dislocation of ankle History of Mohs micrographic surgery for skin cancer Social History adopted: No household members: spouse and family number of children: 2 current occupational status: retired pets and animals: Yes pets and animals: cat(s) and dog(s) sexually active: Yes Smoking Status: Never smoker alcohol intake: current alcohol intake frequency: holidays/special occasions only substance use type: does not use caffeine: No what type of physical activity do you participate in: walking frequency: daily do you feel safe at home: Yes Review of Systems (Anesthesia) ROS Narrative System reviewed and no additional complaints, except as documented.
--- NOTE | 2025-03-13 09:23 | BI_ITS ---
EXAM: BREAST BIOPSY SPECIMEN 03/13/2025 CLINICAL HISTORY: F, Age 74 y/o, radiograph of the right breast specimen. TECHNIQUE: Procedure Code: BIB Modality: MG Procedure: BREAST BIOPSY SPECIMEN COMPARISON: Prior exam(s) dated January 16, 2025.. FINDINGS: TISSUE DENSITY: There are scattered areas of fibroglandular density Bilateral Breast Mammographic Findings: The specimen contains the tissue clip marker. BI/Breast Biopsy Specimen IMPRESSION: OVERALL FINAL ASSESSMENT: BIRADS 6: Known Biopsy-Proven Malignancy. RECOMMENDATION: Needle localization and biopsy. A letter with findings and recommendations will be mailed to the patient. Reading Location: [place] [id number]
--- NOTE | 2025-03-13 10:30 | BREAST_PTH ---
PATIENT: WANDA TURK LOC: [facility] [place] U#:[id number] AGE/SX: 74/F ROOM: RE03/13/[address]: Dr. Po Vernon MD : 1950 BED: DIS: 03/13/2025 SPEC #: [id number] RECD: 03/13/25 12:15 STATUS: CHANO REMila #: [id number] GUANACO: 03/13/25 10:[address]: Po Vernon DEPT: SURGICAL PATHOLOGY RECD BY: Raghu Gutierrez ENTERED: 03/13/25 14:23 SP TYPE: BREAST OTHR DR: Dr. Na Bragg MD Tissues: A - Right breast, NOS B - Right breast, NOS C - LYMPH NODE BIOPSY D - LYMPH NODE BIOPSY E - Right breast, NOS F - LYMPH NODE BIOPSY Procedures: Frozen Section (charge) Immunohistochemical Stains Frozen Section Add'l ([facility]) Surgery Specimen Level IV Surgery Specimen Level V IHC Stain ADDITIONAL HEADER OPERATION: Right breast, stereo wire localized lumpectomy, sentinel lymph node, blue dye PRE-OP DIAGNOSIS: Invasive lobular carcinoma of breast in female TISSUE SUBMITTED: A- Right breast lumpectomy *short stitch- superior, long stitch- lateral*, B- Right breast - new anterior margin, C- Right breast - sentinel lymph node #1 blue 176, D- Right breast - sentinel lymph node # 2 blue 280, E- Right breast - new superior margin, F- Right breast- sentinel lymph node #3 blue 87 FROZEN SECTION DIAGNOSIS C. Lymph node, sentinel, right #1, excision: No tumor seen. D. Lymph node, sentinel, right #2, excision: No tumor seen. E. Lymph node, sentinel, right #3, excision: Negative for tumor. INTRAOPERATIVE GROSS ASSESSEMENT: A. Right breast, lumpectomy: Mass is closest to anterior and superior margins of the medial aspect of the excision. B. Right breast, new anterior margin, re-excision: No grossly apparent tumor. F. Right breast, new superior margin, re-excision: No definitive mass seen grossly. MS/mr 03/13/2025 MICROSCOPIC DIAGNOSIS A. Breast, right, lumpectomy: - Invasive lobular carcinoma, Grade 2 (tubule 3, nuclear 2, mitosis 1), 1.8 cm. - Involves the inferior surgical margin - see note. - pT1c, pN0 (isolated tumor cells) - Estrogen receptor:?positive (90%, strong intensity) - Progesterone receptor:?positive (80%, strong intensity) - HER2 IHC:?equivocal (2+) - HER2 FISH:?negative (performed at [facility]) - Ki67: 10% - Intraductal papilloma (0.2 cm). - IHC for Ecadherin and CK5/6 support the histologic impression. - See Synoptic Report. Note: Although not grossly suspicious at the time of surgery, a microscopic focus of invasive lobular carcinoma is identified at the inferior surgical margin upon microscopic examination. Also see part B re: anterior surgical margin. Hormone receptor assays performed on core biopsy specimen ([id number]). B. Breast, right, new anterior margin, re-excision: - Residual invasive lobular carcinoma, focally involving opposing surgical margins - see note. - Focal flat epithelial atypia with microcalcification. - IHC for Ecadherin, CK5/6, and ER support the histologic impression. Note: One positive margin shows cautery artifact. The directly opposing positive margin is not cauterized. This new anterior margin is positive for tumor even though the anterior surgical margin appears free in the sections submitted for part A. C. Lymph node, right axilla, sentinel #1, excision: - Positive for isolated tumor cells. - Negative for macro and micro metastasis. - IHC for pankeratin highlights the isolated tumor cells. D. Lymph node, right axilla, sentinel #2, excision: - Positive for isolated tumor cells. - Negative for macro and micro metastasis. - IHC for pankeratin highlights the isolated tumor cells. E. Lymph node, right axilla, sentinel #3, excision: - Positive for isolated tumor cells. - Negative for macro and micro metastasis. - IHC for pankeratin highlights the isolated tumor cells. F. Breast, right, new superior margin, re-excision: - Focal invasive lobular carcinoma, closely approaching a cauterized edge of the tissue (< 1 mm) - see note. - IHC for Ecadherin and CK5/6 support the histologic impression. Note: Without specific gross orientation of the new margin, it is not possible to determine if this close margin represents the original surgical margin or the actual new margin. The only distinguishing feature is the cautery artifact. Recommend clinical correlation. SYNOPTIC REPORT FOR INVASIVE BREAST CARCINOMA Specimen (P=partial, M=mastectomy):?P Laterality (R=right, L=left):?R Focality (U=unifocal, M=multifocal):?U Tumor size (cm):?1.8 cm Histologic type:?invasive lobular Histologic grade:?2 ??? Tubule score (1-3):?3 ??? Nuclear score (1-3):?2 ??? Mitotic score (1-3):?1 Skin, nipple epidermis, skeletal muscle (I=involved, N=negative, NA=not applicable):?N (skin) Lymphovascular invasion (E=extensive, F=focal, N=not identified):?N Margins of main specimen (P=positive, N=negative):?P Distance to closest margin of main specimen (mm):?0 Designation of closest margin of main specimen:?inferior (A), anterior (B, new margin) Designation of other margins of main specimen </=1 mm:?superior (see note for part F) Re-resection margin status (P=positive, N=negative, NA=not applicable):?P (new anterior margin, part B) DCIS (P=present, N=not identified):?N ? Regional lymph nodes: ?? Total number of lymph nodes:?3 ?? Number of sentinel lymph nodes:?3 ?? Number with macrometastases:?0 ?? Number with micrometastases:?0 ?? Number with isolated tumor cells:?3 ?? Size of largest adilene metastasis (mm):?NA ?? Size of extranodal extension (mm) (N=not identified):?N ? Estrogen receptor:?positive (90%, strong intensity) Progesterone receptor:?positive (80%, strong intensity) HER2 IHC:?equivocal (2+) HER2 FISH:?negative (performed at [facility]) Ki67: 10% Specimen in which ER/NC/HER2/Ki67 performed:?[id number] (core biopsy) pTNM:?pT1c pN0 Additional findings:?Focal intraductal papilloma (0.2 cm); flat epithelial atypia, usual ductal hyperplasia, focal microcalcifications Comment:?A radiograph of the breast specimen was utilized to assist in the sectioning of the specimen. ? The above synoptic report complies, in slightly modified form, with the guidelines of the [employer] and the Association of Directors of Anatomic and Surgical Pathology for the reporting of cancer specimens MICROSCOPIC DESCRIPTION Slides are reviewed. All matched controls reacted appropriately. These tests were developed and their performance characteristics determined by [facility]. They may not have been cleared or approved by the U.S. Food and Drug Administration. The FDA has determined that such clearance or approval is not necessary.? The above immunohistochemical?markers and/or special stains have been reviewed by the Pathologist. GROSS DESCRIPTION Received in fresh in 6 containers for intraoperative consultation, labeled with the patient's name and date of . Designated as: A. Right breast lumpectomy is a 14.2 x 6.8 x 3.3 cm lumpectomy with exposed localization wires. There is a short suture designated as superior and a long suture designated as lateral. Skin is present. The specimen is inked as follows: Superior: RedInferior: BlueMedial: YellowLateral: OrangeAnterior: GreenPosterior: Black The specimen is serially sectioned from lateral to medial revealing a 1.8 x 1.7 x 1.5 cm whalen-white, indurated mass with surrounding, yellow discoloration (suspicious for fat necrosis). Review of postoperative imaging confirms the presence of 2 biopsy clips. The mass is located the following distances from each margin: Anterior: <0.1 cmInferior: 0.7 cmMedial: 0.5 cmLateral: >8.0 cmPosterior: 1.5Superior: <0.1 cm The remainder of the cut surfaces are fibrofatty with blue dye discoloration on the posterior/inferior aspect, medially. Rn Coronary Care Unit sections are submitted, sequentially from lateral to medial as follows: A1: Lateral, perpendicular (orange)A2: Fibrosis with superior/posterior (red/blackA3: Skin with anterior (green)A4: Mass to superior, anterior, medial (red/green/yellow)A5: Mass to anterior/medial (green/yellowA6: Mass to superior (red) (note: some black ink discoloration, not true margin)A7: Posterior margin near massA8: Inferior margin near massA9-A11: Fibrosis to posterior/inferior on medial aspect (black, blue) (blue surgical dye discoloration) Cold ischemic time: 43 minutesFormalin fixation time: 54 hours, 52 minutes B. Right breast new margin anterior is a 5.7 x 3.5 x 1.5 cm portion of fibrofatty tissue. The specimen is devoid of orientation. The specimen is inked green. Sectioning reveals a whalen-yellow, fibrofatty cut surfaces, some of which extend to the overlying ink. No definitive lesions are identified. Rn Coronary Care Unit sections are submitted 6 cassettes. C. Right breast sentinel node #1 is a 0.6 x 0.5 x 0.4 cm lymph node with attached soft tissue. The specimen is bisected revealing blue dye. Touch preparations are made and the lymph node is entirely submitted for frozen section diagnosis and subsequently placed in cassette C1 for permanent sections. The remainder of the soft tissue is submitted in cassette C2. D. Right breast sentinel lymph node #2 is a 0.7 x 0.6 x 0.6 cm lymph node with attached soft tissue. The specimen is bisected revealing firm cut surfaces. Touch preparations are made and the lymph node is entirely submitted for frozen section diagnosis and subsequently placed in cassette D1 for permanent sections. The remainder of the soft tissue is submitted cassette D2. E. Right breast sentinel node #3 is a 1.2 x 0.5 x 0.4 cm lymph node with attached soft tissue. The lymph node is bisected and entirely submitted for frozen section diagnosis and subsequently placed in cassette E1 for permanent sections. The remainder of the soft tissue is submitted in cassette E2. F. Right breast-new superior margin is a 6.4 x 4.1 x 1.0 cm focally shaggy and disrupted portion of fibrofatty tissue. The specimen is devoid of orientation. The specimen is inked red and serially section revealing fibrofatty cut surfaces extending to the overlying ink. No definitive lesions are identified. Rn Coronary Care Unit sections are submitted in 4 cassettes. VT 03/13/2025 CPT:40409m1,93946m7,77822,[id number],[id number],09742p3
--- NOTE | 2025-03-13 10:41 | PCM.HP.STD ---
HPI - General General Date of Admission: 03/13/25 Date of Service: 03/13/25 Chief Complaint: Right breast cancer HPI Narrative WANDA TURK, is a 74 F who presents for lumpectomy and sentinel lymph node biopsy of right breast cancer which was recently discovered on mammogram and ultrasound. [facility] Medical History (Updated 03/13/25 @ 09:[address] Zay Blancas MD) Autism Breast mass, right Wears glasses Non-smoker Osteopenia Hypertension History of skin cancer Home Medications ?Medication ?Instructions ?Recorded ?Last Taken ?Type multivitamin 1 tab PO DAILY 06/29/21 Unknown History calcium carbonate 600 mg PO BID #180 tabs 02/08/23 Unknown Rx cholecalciferol (vitamin D3) 50 50 mcg PO DAILY #90 caps 02/08/23 Unknown Rx mcg (2,000 unit) capsule ibandronate 150 mg tablet 150 mg PO QMONTH #7 tabs 09/02/24 Unknown Rx losartan 25 mg tablet 25 mg PO BID #180 tabs 11/03/24 03/13/25 Rx propranolol 60 mg capsule,24 60 mg PO QHS #90 caps 11/06/24 Unknown Rx hr,extended release Allergy/AdvReac Type Severity Reaction Status Date / Time No Known Allergies Allergy Verified 03/13/25 08:25 Family History Father Cancer brain or spinal uncertain Hypertension Grandfather Myocardial infarction, Onset Age: 70 Mother High cholesterol Skin cancer Surgical History (Updated 03/13/25 @ 09:[address] Zay Blancas MD) Hx of dislocation of ankle History of Mohs micrographic surgery for skin cancer Social History adopted: No household members: spouse and family number of children: 2 current occupational status: retired pets and animals: Yes pets and animals: cat(s) and dog(s) sexually active: Yes Smoking Status: Never smoker alcohol intake: current alcohol intake frequency: holidays/special occasions only substance use type: does not use caffeine: No what type of physical activity do you participate in: walking frequency: daily do you feel safe at home: Yes Vital Signs Vital Signs Vital Signs: 03/13/25 08:27 03/13/25 08:27 03/13/25 09:27 Temperature 97.6 F L 97.6 F L Temperature Source Temporal Pulse Rate 50 L 50 L Respiratory Rate 16 16 Respiratory Pattern Normal Blood Pressure 173/80 H 173/80 H Blood Pressure Mean 111 Blood Pressure Source Monitor Blood Pressure Position Sitting Blood Pressure Location Right Arm Pulse Ox 97 97 Oxygen Delivery Method Room Air Room Air Weight Weight: 145 lb 8.081 oz Body Mass Index (BMI) 22.8 Physical Exam Const alert, oriented x3 and no apparent distress Results Imaging Radiology Impression [place] Node 03/13/25 08:29 IMPRESSION: Successful subdermal injection of 550 uCi of Tilmanocept for sentinel node imaging. Reading Location: [facility] Assessment & Plan Assessment/Plan (1) Invasive lobular carcinoma of breast in female: PLAN: Plan The patient is a 74-year-old female who was recently discovered to have a right breast lobular carcinoma. We discussed her surgical options and she is ultimately wished to proceed with a lumpectomy and sentinel lymph node biopsy. We discussed the details of the planned procedure and she wishes to proceed. Surgery will begin momentarily
[2025-03-13] MEDS: Midazolam 2 MG/2 ML Syringe IV (10:50)
[2025-03-13] MEDS: Lidocaine 1% (5 ml sdv) 5 ML Vial IV (10:57)
[2025-03-13] MEDS: Bupiv/Epi 0.25% 30 ML Vial (11:18)
[2025-03-13] MEDS: fentaNYL 100 MCG/2 ML Ampul 125 MCG IV (12:43)
--- NOTE | 2025-03-13 13:26 | DCINST_ITS ---
Discharge Instructions Diet Discharge Diet: Light diet - advance as tolerated Activity Discharge Activity: Return to Normal Activity and May Shower May shower in (days): 1 Ice area for (Minutes): 30 Dressing / Incision Call your doctor if your incision/area has: Continuous Slow Oozing, Sudden Increased Bleeding, Increased Pain/ Swelling, Increased Redness, Foul Smelling Discharge and Swelling at the incision site Call your doctor if you observe: Fever of 101 or Higher Follow Up Care Please Follow Up With: Po Vernon MD When: 1 to 2 weeks. Please call office to schedule appointment Test Results: Test results from this visit will be discussed in further detail at your follow- up appointment, if applicable. Discharge Plan Admission Primary Reason for Your Visit: Right breast lumpectomy Attending Provider: Po Vernon Primary Care Provider: Na Bragg Instructions Print Language: Telugu Discharge Orders/Prescriptions Prescriptions: New oxycodone 5 mg capsule 5 mg PO Q8H PRN (Reason: pain) 4 Days Qty: 12 0RF Continued multivitamin Tablet 1 tab PO DAILY calcium carbonate 600 mg calcium (1,500 mg) tablet 600 mg PO BID Qty: 180 3RF cholecalciferol (vitamin D3) 50 mcg (2,000 unit) capsule 50 mcg PO DAILY Qty: 90 3RF ibandronate 150 mg tablet 150 mg PO QMONTH Qty: 7 1RF losartan 25 mg tablet 25 mg PO BID Qty: 180 1RF propranolol 60 mg capsule,extended release 24 hr 60 mg PO QHS Qty: 90 1RF Rx Instructions: TAKE 1 CAPSULE BY MOUTH AT BEDTIME Referrals / Follow Up: Na Bragg MD [Primary Care Provider] - Disposition Disposition (needs filled in before D/C Order can be placed): Home, Self Care
--- NOTE | 2025-03-13 13:31 | OP.PCM_ITS ---
Problems Associated Problem List Diagnoses (1) Invasive lobular carcinoma of breast in female: Operative Report (Standard) Operative Information Date of Procedure: 03/13/25 Pre-Operative Diagnosis: Invasive lobular carcinoma of the right breast Post-Operative Diagnosis: Same Surgery/Procedure Performed: 1. Right breast needle localized lumpectomy 2. Right axillary sentinel lymph node biopsy personal care worker: Yes Partner: Tomeka Gomez Tasks completed by airline pilot/first officer: Closing and Retracting Additional railways assistant?: No Type of Anesthesia: General and Local RN Documented Start/Stop Times: Operation Date: 03/13/25 10:30 Case Time Into Pre-Op 03/13/25 08:07 Out of Pre-Op 03/13/25 10:42 Anesthesia Start 03/13/25 10:49 Into Room 03/13/25 10:49 Procedure Start 03/13/25 11:18 Procedure End 03/13/25 13:07 Anesthesia End 03/13/25 13:14 Out of Room 03/13/25 13:14 Into Recovery 03/13/25 13:15 Procedure Start Time: 11:18 Procedure Stop Time: 13:07 Select all DRAINS/GRAFTS/IMPLANTS that apply: None Estimated Blood Loss: 15 mL Specimen collected: Yes Description of specimen(s) removed: 1. Right breast lumpectomy specimen 2. Right axillary sentinel lymph nodes x 3 3. New anterior lumpectomy margin 4. New superior lumpectomy margin Surgical Findings: See operative note Complications Complications: No
--- NOTE | 2025-03-13 13:31 | PCM.OPRPT ---
Problems Associated Problem List Diagnoses (1) Invasive lobular carcinoma of breast in female: Oncology: Agnieszka Requirements . Oncology surgical intervention performed: [place] Node Biopsy for Breast Cancer performed [place] Node Bx - Breast Cancer: Synoptic Portion: Element Response Options Operation performed with curative intent. Yes Tracer(s) used to identify sentinel nodes in the upfront surgery (non-neoadjuvant) setting (select all that apply). Dye; Radioactive tracer Tracer(s) used to identify sentinel nodes in the neoadjuvant setting (select all that apply).N/A. All nodes (colored or non-colored) present at the end of a dye-filled lymphatic channel were removed. Yes All significantly radioactive nodes were removed. Yes All palpably suspicious nodes were removed. N/A. Biopsy-proven positive nodes marked with clips prior to chemotherapy were identified and removed. N/A. Multi Select Codes Integumentary Integumentary CPT Codes: 63398 Partial mastectomy Respiratory/Cardiovascular Resp/Cardiovascular CPT Codes: 43852 Biopsy/removal lymph nodes and 12559 Ra tracer id of sentinl node Operative Report (Standard) Operative Information Date of Procedure: 03/13/25 Pre-Operative Diagnosis: Invasive lobular carcinoma of the right breast Post-Operative Diagnosis: Same Surgery/Procedure Performed: 1. Right breast needle localized lumpectomy 2. Right axillary sentinel lymph node biopsy recycler: Yes Fashion Director Party Plan Sales: Tomeka Gomez Tasks completed by director of first impressions: Closing and Retracting Additional assistant facility manager?: No Type of Anesthesia: General and Local RN Documented Start/Stop Times: Operation Date: 03/13/25 10:30 Case Time Into Pre-Op 03/13/25 08:07 Out of Pre-Op 03/13/25 10:42 Anesthesia Start 03/13/25 10:49 Into Room 03/13/25 10:49 Procedure Start 03/13/25 11:18 Procedure End 03/13/25 13:07 Anesthesia End 03/13/25 13:14 Out of Room 03/13/25 13:14 Into Recovery 03/13/25 13:15 Procedure Start Time: 11:18 Procedure Stop Time: 13:07 Select all DRAINS/GRAFTS/IMPLANTS that apply: None Estimated Blood Loss: 15 mL Specimen collected: Yes Description of specimen(s) removed: 1. Right breast lumpectomy specimen 2. Right axillary sentinel lymph nodes x 3 3. New anterior lumpectomy margin 4. New superior lumpectomy margin Description of surgery: The patient is a 74-year-old female who was recently seen in the office for an abnormal right breast mammogram and ultrasound. Core biopsy was performed in the office and this revealed an infiltrating lobular carcinoma located in the upper outer quadrant of the right breast. Her surgical options were discussed with her and she ultimately wished to proceed with lumpectomy and sentinel lymph node biopsy with subsequent radiation. We discussed the details of the planned surgery including the risks benefits and alternatives. She wished to proceed. She was brought to the operating room today following informed consent. Earlier in the day Lymphoseek was injected into the right periareolar area. 2 localization wires were placed in the right breast also earlier in the day. Patient was brought to the operating room following informed consent. Left 5 cc of blue dye was injected into the right periareolar region and massaged into the breast for about 5 minutes. The right breast and axilla were then prepped and draped in the usual sterile manner. A marking pen was then used to plan out the incision. This was a larger an ellipse incision to encompass both entry points of the localization wires. Local anesthetic was infiltrated into the area. #15 blade was then used to make the skin incision. Bovie electrocautery was then used dissect down through subtendinous tissues along the path of the localization wires but staying wide from the wires themselves. Eventually the specimen was removed. Orientation sutures were placed such that the long stitch disla the lateral aspect of the lumpectomy. And a short stitch to frieda the superior aspect of the specimen. This was sent to radiology to be radiographed. The mass, 2 wires and 2 clips were noted within the specimen. 1 clip was placed at the time of her recent ultrasound-guided biopsy. She also had a previous biopsy in the same vicinity about 20 or 30 years ago. This explains why there were 2 clips present. The specimen was then sent to pathology to evaluate margins. It was felt that the margins may be somewhat close both anteriorly and superior medially. These 2 additional margins were then obtained and sent to pathology for frozen section. This appeared to be grossly free. The sentinel lymph node biopsy portion of the operation was able to be performed through the same incision in the upper outer quadrant of the right breast. Dissection was carried into the region of the axillary fat pad. Neoprobe was used to identify radioactivity. The sentinel lymph node biopsy was also related by the blue dye injected earlier. A total of 3 sentinel lymph nodes were obtained. Frozen section on all 3 came back negative. The wound was then copiously irrigated and suctioned dry. Hemostasis was excellent. A few areas were cauterized to ensure hemostasis. The incision was then closed in layers using 3-0 Vicryl and then a running 4-0 Vicryl. Skin glue was applied as dressing along with 4 x 4 fluffs and a postop bra. She was awakened from anesthesia and taken to recovery in good condition. Surgical Findings: See operative note Complications Complications: No Admit VTE Documentation VTE Present on Admission: No VTE Mechan Device Prophylaxis: SCD's VTE Pharm Prophylaxis ordered?: No Reason prophylaxis not ordered: Treatment Not Indicated
--- NOTE | 2025-03-13 13:57 | PCM.OPRPT ---
Problems Associated Problem List Diagnoses (1) Invasive lobular carcinoma of breast in female: Procedures Integumentary [id number]: [id number] Perq dev breast 1st [facility] Operative Report (Standard) Operative Information Date of Procedure: 03/13/25 Pre-Operative Diagnosis: Invasive lobular carcinoma of right breast Post-Operative Diagnosis: Same Surgery/Procedure Performed: Stereotactic localization wire placement x 2 stringing machine operator: No Type of Anesthesia: Local RN Documented Start/Stop Times: Operation Date: 03/13/25 10:30 Case Time Into Pre-Op 03/13/25 08:07 Out of Pre-Op 03/13/25 10:42 Anesthesia Start 03/13/25 10:49 Into Room 03/13/25 10:49 Procedure Start 03/13/25 11:18 Procedure End 03/13/25 13:07 Anesthesia End 03/13/25 13:14 Out of Room 03/13/25 13:14 Into Recovery 03/13/25 13:15 Procedure Start Time: 10:30 Procedure Stop Time: 11:00 Select all DRAINS/GRAFTS/IMPLANTS that apply: Implanted device Implanted device details: Localization wire x 2 Estimated Blood Loss: Minimal Specimen collected: No Description of surgery: Patient is a 74-year-old female recently discovered to recently have a infiltrating lobular carcinoma of the right breast. She is scheduled for lumpectomy and sentinel lymph node biopsy later this morning. In order to localize the lesion, stereotactic wire placement was advised. Patient was brought to the mammogram suite and was placed prone on the stereotactic table. The right breast was suspended through the aperture and the table. Lateral radiographs were performed and the postbiopsy marking clip was identified along with the mass seen on mammogram and ultrasound. It was noted that the marking clip was about 1 to 2 cm from the mass. It was decided to place 2 wires for localization purposes. 1 wire would be directed to the clip and the other was directed to the mass itself. This was essentially to bracket the lesion of concern. The first wire was placed by targeting upon the clip. The skin of the breast was prepped and draped in the usual sterile manner. Local anesthetic was then injected. The needle and wire were then inserted to the desired depth. 2 additional views were obtained and showed the needle and wire to be in good position. The wire was then deployed and the needle was removed. Post wire placement image showed the wire to be in good location. The mass itself was targeted next. Additional stereotactic views were then obtained. We targeted on 1 particular calcification within the mass as a reference point. The second wire was then deployed in a similar manner and a post wire placement image again showed the wire to be in good orientation. Both wires were then secured and the patient then underwent post procedure mammograms and 2 views. This showed the wires to be in good location. A dressing was then applied. She was then taken to preop holding area to await surgery. She tolerated the procedure well. Surgical Findings: See procedure note Complications Complications: No Admit VTE Documentation VTE Present on Admission: No VTE Mechan Device Prophylaxis: None VTE Pharm Prophylaxis ordered?: No Reason prophylaxis not ordered: Treatment Not Indicated
--- NOTE | 2025-03-13 14:11 | PCM.POST.ANE ---
Anesthesia: Postop Eval I Current Vital Signs Temperature: 97.2 F Pulse Rate: 54 Blood Pressure: 125/75 Respiratory Rate: 16 Pulse Ox: 97 Oxygen Delivery Method: Room Air Assessment Airway patent: Yes Spontaneous unlabored respirations: Yes Mental status: Awake and Calm nausea: No Vomiting: No Anesthesia Complication: No Fluid Hydration Crystalloid volume administer (ml): 1,500 Total IV fluid infused: 1,500 Progress Note Anesthesia document: Postop Eval 1 completed: Yes
--- NOTE | 2025-03-13 21:28 | POSTOPAN2_ITS ---
Anesthesia Postop Eval I Sum Postop Eval Completion status Anesthesia document: Postop Eval 1 completed: Yes Anesthesia Postop Eval I Summary Anesthesia Postop Eval I Summary: Anesthesia Postop Eval I: Assessment Summary Airway patent Yes 03/13/25 14:12 [email or web address] Spontaneous unlabored Yes 03/13/25 14:12 [email or web address] respirations Mental status Awake,Calm 03/13/25 14:12 [email or web address] nausea No 03/13/25 14:12 [email or web address] Vomiting No 03/13/25 14:12 [email or web address] Anesthesia Postop Eval I: Fluid Summary Crystalloid volume administer 1,500 03/13/25 14:12 [email or web address] (ml) Colloids volume administered ( ml) Blood Product volume administered (ml) Total IV fluid infused 1,500 03/13/25 14:12 [email or web address] Anesthesia Postop Eval I: Summary Notes Anesthesia Complication No 03/13/25 14:12 [email or web address] Anesthesia Complication Comment: Post-operative progress note Anesthesia: Postop Eval II Evaluation Mental status: Awake and Calm Pain Level: 1 nausea: No Vomiting: No Complications Anesthesia Complication: No
--- NOTE | 2025-03-13 21:28 | PCM.POSTANE2 ---
Anesthesia Postop Eval I Sum Postop Eval Completion status Anesthesia document: Postop Eval 1 completed: Yes Anesthesia Postop Eval I Summary Anesthesia Postop Eval I Summary: Anesthesia Postop Eval I: Assessment Summary Airway patent Yes 03/13/25 14:12 [email or web address] Spontaneous unlabored Yes 03/13/25 14:12 [email or web address] respirations Mental status Awake,Calm 03/13/25 14:12 [email or web address] nausea No 03/13/25 14:12 [email or web address] Vomiting No 03/13/25 14:12 [email or web address] Anesthesia Postop Eval I: Fluid Summary Crystalloid volume administer 1,500 03/13/25 14:12 [email or web address] (ml) Colloids volume administered ( ml) Blood Product volume administered (ml) Total IV fluid infused 1,500 03/13/25 14:12 [email or web address] Anesthesia Postop Eval I: Summary Notes Anesthesia Complication No 03/13/25 14:12 [email or web address] Anesthesia Complication Comment: Post-operative progress note Anesthesia: Postop Eval II Evaluation Mental status: Awake and Calm Pain Level: 1 nausea: No Vomiting: No Complications Anesthesia Complication: No
== END 2025-03-13 14:36 | disposition home or self-care (01) ==
LOC: SDC 08:09 → AC 08:11
PROVIDERS: PCP Internal Medicine; Referring Provider Surgery; Visit Provider Surgery
PROC: 0HBV0ZZ Excision of Bilateral Breast, Open Approach (ICD-10-PCS; CPT 19302; principal; 2025-03-13 10:15)
DX: C50.411 Malignant neoplasm of upper-outer quadrant of right female breast (principal); I10 Essential (primary) hypertension; Z17.31 Human epidermal growth factor receptor 2 positive status; Z17.0 Estrogen receptor positive status [ER+]; Z17.21 Progesterone receptor positive status; Z79.899 Other long term (current) drug therapy
CPT/HCPCS: 19301; 38525; 19283; 00404; 19281; 38792; 76098; 88305; 88307; 88331; 88332; 88341; 88342; A4648; A9520; J2405; Q9968

== ENCOUNTER 2025-04-28 10:58 | Day surgery (SDC) | payer MEDICARE, SELFPAY ==
[2025-04-28] VITALS (9 sets, daily range): BP systolic 111–165; BP diastolic 50–107; PULSE 47–59; RESP 16; TEMP 36.6; O2SAT 98–100; BMI 23.1
[2025-04-28] MEDS: Lactated Ringers 1,000 ML 15 ML IV (11:35)
--- NOTE | 2025-04-28 11:58 | PCM.PRE.AN2 ---
ASA Classification* ASA Classification ASA Classification: 2 Assessment & Plan Anesthesia* Anesthesia Assessment Anesthesia Assessment: Discussed sedation and/or anesthesia options, risks, benefits, and alternatives with patient/parents/legal guardian/POA. Questions invited. The patient/parents/legal guardian/POA seems to understand and agrees to proceed with anesthesia plan. Reviewed the physical assessment, medical history, allergy history and patient home medications list prior to surgery/procedure/anesthetic and documented any changes. Performed airway and anesthesia risk assessments. Anesthesia Type Anesthesia Type: MAC History Source History Obtained from:: Patient and Chart Anesthesia Focused Assessment* Temperature: 97.8 F Pulse Rate: 50 Blood Pressure: 165/69 Respiratory Rate: 16 Pulse Ox: 100 Oxygen Delivery Method: Room Air Airway Assessment Mouth opens: >3 cm Mallampati Score: III Teeth Condition: Caps/Crowns (Patient has 1 crown. It is tight.) Neck Range of motion (ROM): Full ROM Labs Anesthesia Preop lab: CBC WBC, (4.4-11.0) 6.6 K/mm3 04/07/25, 15:34 RBC, (4.2-5.4) 4.71 M/mm3 04/07/25, 15:34 Hgb, (12.0-15.0) 13.3 g/dL 04/07/25, 15:34 Hct, (37-47) 39.9 % 04/07/25, 15:34 Plt Count, (150-450) 230 K/mm3 04/07/25, 15:34 CHEMISTRY Potassium, (3.3-5.1) 4.3 mmol/L 04/07/25, 15:34 Sodium, (133-145) 137 mmol/L 04/07/25, 15:34 Magnesium, (1.6-2.6) 2.3 mg/dL 06/29/21, 09:36 BUN, (4-19) 18 mg/dL 04/07/25, 15:34 Creatinine, (0.70-1.20) 0.81 mg/dL 04/07/25, 15:34 Glucose [facility], (70-110) 124 mg/dL H 07/23/21, 10:54 Glucose, (70-99) 109 mg/dL H 04/07/25, 15:34 POC Glucose, (74-106) 101 mg/dL 06/10/24, 15:14 TSH, (0.358-3.74) 1.60 uIU/mL 06/29/21, 09:36 COAG Pre-Assessment Diagnosis/Proposed Procedure Planned Operative Procedure(s): (R) Re-excision right Breast, Lumpectomy Anesthesia History 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 When Was Last Pacemaker Check QUESTION #4 FULL TEXT: You/Your Family Experience fever (hyperthermia) with Anesthesia Last Oral Intake Last Oral intake: Last Oral Intake NPO since 07:00 04/28/25 11:31 Meds taken in AM with sips of Yes 04/28/25 11:31 water? Meds patient instructed to LOSARTAN 04/28/25 11:31 take am of surgery Any additional information?: Yes Meds taken in AM with sips of water?: Yes PONV PONV - maintenance truck driver: PONV - maintenance truck driver Female Yes 04/20/25 15:25 HX of Motion Sickness No 04/20/25 15:25 HX of N/V After Surgery No 04/20/25 15:25 Non-Smoker Yes 04/20/25 15:25 Duration of Surgery greater Yes 04/20/25 15:25 than 60 minutes Number of Risk Factors 3 04/20/25 15:25 PONV Score Moderate Risk 04/20/25 15:25 Height & Weight Height & Weight: Anesthesia: Height & Weight Height 5 ft 7 in 04/28/25 11:31 Weight: 67 kg 04/28/25 11:31 Body Mass Index (BMI) 23.1 04/28/25 11:31 Respiratory Assessment Respiratory Assessment - maintenance truck driver: Respiratory Tract Infection Hx - maintenance truck driver Hx Respiratory Tract Infection No 04/20/25 15:25 STOP Sleep Apnea STOP Sleep Apnea - maintenance truck driver: STOP Sleep Apnea - maintenance truck driver Hx Hypertension Yes: CONTROLLED WITH MED 04/20/25 15:25 Hx Sleep Apnea No 04/20/25 15:25 CPAP BIPAP Do you snore loudly (louder No 04/20/25 15:25 than talking or can be heard Do you often feel tired/ No 04/20/25 15:25 fatigued/ sleepy during daytime? Has anyone observed you stop No 04/20/25 15:25 breathing during sleep? STOP Results Negative 04/20/25 15:25 QUESTION #5 FULL TEXT : Do you snore loudly (louder than talking or can be heard through closed doors)? 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 Specify any problems Hx of Preganancy in last 3 No 04/20/25 15:25 Months Nurse Filling Out Transfusion MGRIFFITH 04/20/25 15:25 & Questions: Date: 04/20/25 04/20/25 15:25 Time: 15:28 04/20/25 15:25 Patient unable to answer at this time (ie. confused, unrespo /Reproduction History /Reproductive History - maintenance truck driver: /Reproductive Hx- maintenance truck driver Hx Now Gestational Age (in weeks): EDC: Hx Hx Para Hx Section SAB No 03/02/25 15:09 Active Medications Active Medications: Current Medications Generic Name Dose Route Start Last Admin Trade Name Freq PRN Reason Stop Dose Admin Cefazolin Sodium 2 gm/ Sodium 110 mls @ 200 mls/hr 04/28/25 12:30 Chloride IV 04/28/25 13:02 INTRAOP ONE Lactated Ringer's 1,000 mls @ 15 mls/hr 04/28/25 11:15 04/28/25 11:35 IV 15 mls/hr .Q48H TERRY Administration PFSH Medical History Breast mass, right Wears glasses Non-smoker Osteopenia Hypertension History of skin cancer Home Medications ?Medication ?Instructions ?Recorded ?Last Taken ?Type multivitamin 1 tab PO DAILY 06/29/21 Unknown History calcium carbonate 600 mg PO BID #180 tabs 02/08/23 Unknown Rx losartan 25 mg tablet 25 mg PO BID #180 tabs 11/03/24 04/28/25 08:30 Rx propranolol 60 mg capsule,24 60 mg PO QHS #90 caps 11/06/24 Unknown Rx hr,extended release cholecalciferol (vitamin D3) 50 50 mcg PO BID 04/20/25 Unknown History mcg (2,000 unit) capsule ibandronate 150 mg tablet 150 mg PO QMONTH #7 tabs 04/20/25 Unknown Rx Allergy/AdvReac Type Severity Reaction Status Date / Time No Known Allergies Allergy Verified 04/28/25 11:29 Family History Father Cancer brain or spinal uncertain Hypertension Grandfather Myocardial infarction, Onset Age: 70 Mother High cholesterol Skin cancer Surgical History S/P lumpectomy, right breast Hx of dislocation of ankle History of Mohs micrographic surgery for skin cancer Social History adopted: No household members: spouse and family number of children: 2 current occupational status: retired pets and animals: Yes pets and animals: cat(s) and dog(s) sexually active: Yes Smoking Status: Never smoker alcohol intake: current alcohol intake frequency: holidays/special occasions only substance use type: does not use caffeine: No what type of physical activity do you participate in: walking frequency: daily do you feel safe at home: Yes Review of Systems (Anesthesia) ROS Narrative System reviewed and no additional complaints, except as documented.
--- NOTE | 2025-04-28 12:30 | BREAST_PTH ---
PATIENT: WANDA TURK [place] [facility] [id number] AGE/SX: 74/F ROOM: RE04/28/[address]: Dr. Po Vernon MD : 1950 BED: DIS: 04/28/2025 SPEC #: [id number] RECD: 04/29/25 18:16 STATUS: CHANO REQ #: [id number] GUANACO: 04/28/25 12:[address]: Po Vernon DEPT: SURGICAL PATHOLOGY RECD BY: Zoraida Pabon ENTERED: 04/29/25 10:11 SP TYPE: BREAST OTHR DR: Dr. Na Bragg MD Tissues: A - Breast, NOS B - Breast, NOS C - Breast, NOS Procedures: Immunohistochemical Stains Surgery Specimen Level V IHC Stain ADDITIONAL HEADER OPERATION: Re-excision right breast, lumpectomy PRE-OP DIAGNOSIS: Invasive lobular carcinoma of breast in female TISSUE SUBMITTED: A- New inferior margin, B- New superior margin, C- New anterior margin MICROSCOPIC DIAGNOSIS A. New inferior margin, re-excision right breast lumpectomy: * Atypical lobular hyperplasia, focally extending to the new surgical margin. * Negative for invasive carcinoma - see note. * Fibrosis, fat necrosis, and foreign body giant cell reaction with suture material, consistent with a previous surgical procedure. Note: IHC for E-cadherin, CK5/6 and p40 (A6, A7) support the histologic impression. B. New superior margin, re-excision right breast lumpectomy: * Negative for malignancy. * Fibrosis, fat necrosis, and foreign body giant cell reaction, consistent with a previous surgical procedure. C. New anterior margin, re-excision right breast lumpectomy: * Negative for malignancy. * Focal microcalcifications noted. * Fibrosis, fat necrosis, and foreign body giant cell reaction, consistent with a previous surgical procedure. MICROSCOPIC DESCRIPTION Slides are reviewed. All matched controls reacted appropriately. These tests were developed and their performance characteristics determined by [facility]. They may not have been cleared or approved by the U.S. Food and Drug Administration. The FDA has determined that such clearance or approval is not necessary. The above immunohistochemical markers and/or special?stains have been reviewed by the Pathologist. GROSS DESCRIPTION Received in 3 formalin containers labeled with the patient's name and date of . Designated as: A. New inferior margin is a 4.9 x 3.4 by 2.5 cm portion of whalen-yellow lobulated fibrofatty tissue, devoid of orientation. One aspect of the specimen is whalen-white and fibrotic. The specimen is inked blue. Sectioning reveals whalen-yellow fatty cut surfaces with patchy dark yellow discoloration (suspicious for fat necrosis) underlying the previously described fibrosis. No definitive mass lesions are grossly appreciated. Melt Supervisor sections, comprising approximately 80% of the specimen, are submitted in 10 cassettes. B. New superior margin is a 4.3 x 2.8 x 1.6 cm portion of whalen-yellow lobulated fibrofatty tissue, devoid of orientation. One aspect of the specimen is whalen-white and fibrotic. The specimen is inked red. Sectioning reveals whalen-yellow fatty cut surfaces with patchy dark yellow discoloration (suspicious for fat necrosis) and hemorrhage underlying the previously described fibrosis. No definitive mass lesions are grossly appreciated. Entirely submitted in 8 cassettes. C. New anterior margin is a 5.8 x 2.8 x 1.1 cm portion of whalen-yellow lobulated fibrofatty tissue, devoid of orientation. One aspect of the specimen is whalen-white and fibrotic. The specimen is inked green. Sectioning reveals whalen-yellow fatty cut surfaces with patchy dark yellow discoloration (suspicious for fat necrosis) underlying the previously described fibrosis. No definitive mass lesions are grossly appreciated. Entirely submitted in 7 cassettes. ID 04/[id number] CPT:[id number]
--- NOTE | 2025-04-28 13:53 | PCM.HP.STD ---
HPI - General General Date of Admission: 04/28/25 Date of Service: 04/28/25 Chief Complaint: Right breast cancer HPI Narrative WANDA TURK, is a 74 F who presents for elective reexcision lumpectomy of her right breast. She underwent a lumpectomy and sentinel lymph node biopsy about a month and a half ago for treatment of breast cancer. Her initial frozen section pathology evaluation of the lumpectomy specimen showed sufficient margins however unfortunately with further review there were 3 margins that were either microscopically positive or very close. Patient presents today for reexcision lumpectomy. [facility] Medical History Breast mass, right Wears glasses Non-smoker Osteopenia Hypertension History of skin cancer Home Medications ?Medication ?Instructions ?Recorded ?Last Taken ?Type multivitamin 1 tab PO DAILY 06/29/21 Unknown History calcium carbonate 600 mg PO BID #180 tabs 02/08/23 Unknown Rx losartan 25 mg tablet 25 mg PO BID #180 tabs 11/03/24 04/28/25 08:30 Rx propranolol 60 mg capsule,24 60 mg PO QHS #90 caps 11/06/24 Unknown Rx hr,extended release cholecalciferol (vitamin D3) 50 50 mcg PO BID 04/20/25 Unknown History mcg (2,000 unit) capsule ibandronate 150 mg tablet 150 mg PO QMONTH #7 tabs 04/20/25 Unknown Rx Allergy/AdvReac Type Severity Reaction Status Date / Time No Known Allergies Allergy Verified 04/28/25 11:29 Family History Father Cancer brain or spinal uncertain Hypertension Grandfather Myocardial infarction, Onset Age: 70 Mother High cholesterol Skin cancer Surgical History S/P lumpectomy, right breast Hx of dislocation of ankle History of Mohs micrographic surgery for skin cancer Social History adopted: No household members: spouse and family number of children: 2 current occupational status: retired pets and animals: Yes pets and animals: cat(s) and dog(s) sexually active: Yes Smoking Status: Never smoker alcohol intake: current alcohol intake frequency: holidays/special occasions only substance use type: does not use caffeine: No what type of physical activity do you participate in: walking frequency: daily do you feel safe at home: Yes Vital Signs Vital Signs Vital Signs: 04/28/25 11:31 04/28/25 11:31 04/28/25 12:02 Temperature 97.8 F 97.8 F Temperature Source Temporal Pulse Rate 50 L 50 L Respiratory Rate 16 16 Respiratory Pattern Normal Blood Pressure 165/69 H 165/69 H Blood Pressure Mean 101 Blood Pressure Source Monitor Blood Pressure Position Sitting Blood Pressure Location Left Arm Pulse Ox 100 100 Oxygen Delivery Method Room Air Room Air Weight Weight: 147 lb 11.355 oz Body Mass Index (BMI) 23.1 Physical Exam Const alert, oriented x3 and no apparent distress Assessment & Plan Assessment/Plan (1) Invasive lobular carcinoma of breast in female: PLAN: Plan Reexcision lumpectomy of the right breast planned for today. We discussed the details of the planned procedure including risks benefits and alternatives. She wishes to proceed. Surgery will begin momentarily
[2025-04-28] MEDS: Midazolam 2 MG/2 ML Syringe IV (14:10)
[2025-04-28] MEDS: Cefazolin 1 GM/5 ML Vial 2 GM IV (14:10)
[2025-04-28] MEDS: Lactated Ringers 1,000 ML 1000 ML IV (14:10)
[2025-04-28] MEDS: Lidocaine 1% (5 ml sdv) 5 ML Vial 6 ML IV (14:16)
[2025-04-28] MEDS: Bupiv/Epi 0.25% 30 ML Vial ×2 (14:40→14:41)
[2025-04-28] MEDS: fentaNYL 100 MCG/2 ML Ampul IV (14:52)
--- NOTE | 2025-04-28 15:11 | DCINST_ITS ---
Discharge Instructions
--- NOTE | 2025-04-28 15:11 | EX.PCM.DISCH ---
Discharge Instructions Diet Discharge Diet: Light diet - advance as tolerated Activity Discharge Activity: Return to Normal Activity and May Shower May shower in (days): 1 Ice area for (Minutes): 30 Dressing / Incision Call your doctor if your incision/area has: Continuous Slow Oozing, Sudden Increased Bleeding, Increased Pain/ Swelling, Increased Redness, Foul Smelling Discharge and Swelling at the incision site Call your doctor if you observe: Fever of 101 or Higher Cleanse incision/area with: Soap & Water Follow Up Care Please Follow Up With: Po Vernon MD When: 2 weeks. Please call office to schedule appointment Test Results: Test results from this visit will be discussed in further detail at your follow-up appointment, if applicable. Discharge Plan Admission Primary Reason for Your Visit: Right breast reexcision lumpectomy Attending Provider: Po Vernon Primary Care Provider: Na Bragg Instructions Print Language: Albanian Discharge Orders/Prescriptions Prescriptions: New oxycodone 5 mg tablet 5 mg PO Q8H PRN (Reason: pain) 4 Days Qty: 10 0RF Continued multivitamin Tablet 1 tab PO DAILY calcium carbonate 600 mg calcium (1,500 mg) tablet 600 mg PO BID Qty: 180 3RF ibandronate 150 mg tablet 150 mg PO QMONTH Qty: 7 1RF cholecalciferol (vitamin D3) 50 mcg (2,000 unit) capsule 50 mcg PO BID losartan 25 mg tablet 25 mg PO BID Qty: 180 1RF propranolol 60 mg capsule,extended release 24 hr 60 mg PO QHS Qty: 90 1RF Rx Instructions: TAKE 1 CAPSULE BY MOUTH AT BEDTIME Referrals / Follow Up: Na Bragg MD [Primary Care Provider, Internal Medicine] Disposition Disposition (needs filled in before D/C Order can be placed): Home, Self Care
--- NOTE | 2025-04-28 15:18 | POSTOP.ANE_ITS ---
Anesthesia: Postop Eval I
--- NOTE | 2025-04-28 15:18 | PCM.POST.ANE ---
Anesthesia: Postop Eval I Current Vital Signs Temperature: 97.8 F Pulse Rate: 59 Blood Pressure: 118/57 Respiratory Rate: 16 Pulse Ox: 100 Assessment Airway patent: Yes Spontaneous unlabored respirations: Yes nausea: No Vomiting: No Anesthesia Complication: No Fluid Hydration Crystalloid volume administer (ml): 1,000 Total IV fluid infused: 1,000 Progress Note Anesthesia document: Postop Eval 1 completed: Yes
--- NOTE | 2025-04-28 15:21 | OP.PCM_ITS ---
Procedures Integumentary
--- NOTE | 2025-04-28 15:21 | PCM.OPRPT ---
Procedures Integumentary [id number]-[id number]: 39103 Partial mastectomy (with modifier 58) Operative Report (Standard) Operative Information Date of Procedure: 04/28/25 Pre-Operative Diagnosis: Right breast cancer Post-Operative Diagnosis: Right breast cancer Surgery/Procedure Performed: Right breast reexcision lumpectomy legal technician: Yes Rn Perinatal: Johnathan Mares Tasks completed by fitness assistant: Closing and Retracting Additional assistant store director?: No Type of Anesthesia: Local and MAC RN Documented Start/Stop Times: Operation Date: 04/28/25 12:30 Case Time Into Pre-Op 04/28/25 11:07 Out of Pre-Op 04/28/25 14:03 Anesthesia Start 04/28/25 14:10 Into Room 04/28/25 14:10 Procedure Start 04/28/25 14:25 Procedure End 04/28/25 15:10 Anesthesia End 04/28/25 15:14 Out of Room 04/28/25 15:14 Procedure Start Time: 14:25 Procedure Stop Time: 15:10 Select all DRAINS/GRAFTS/IMPLANTS that apply: None Estimated Blood Loss: 10 mL Specimen collected: Yes Description of specimen(s) removed: 1. New inferior margin 2. New superior margin 3. New anterior margin Description of surgery: The patient is a 74-year-old female who was recently found to have right breast cancer. She underwent a lumpectomy and sentinel lymph node biopsy. Initial frozen section of the primary specimen showed margins to be negative however on further closer examination she had some microscopic positive disease mostly in the inferior margin but the anterior and superior margins were also close. I recommended reexcision lumpectomy. We discussed the details of the planned procedure and she wished to proceed. The patient was brought to the operative room today following informed consent. She was placed supine on the operative table with arms outstretched and arm boards. A MAC anesthesia was induced. Once adequately sedated the right breast was prepped and draped in the usual sterile manner. The previous incision skin was reexcised to improve cosmesis. Once this tissue was excised, the seroma capsule was entered. At this point, the inferior margin was excised and sent to pathology labeled new inferior margin. Next a similar reexcision was performed of the superior margin. This tube was sent to pathology as a separate specimen labeled new superior margin. Lastly the anterior margin was reexcised and sent to pathology labeled new anterior margin. No evidence of gross tumor was present or identified. Hemostasis was excellent. The wound was copiously irrigated. A total of 30 cc of local anesthetic were used throughout the course of the procedure. The incision was then closed using 3-0 Vicryl in the subdermal layer and then 4-0 Vicryl to surround the skin. Skin glue was applied as dressing. She was awakened from anesthesia and taken to recovery in good condition Surgical Findings: See operative note Complications Complications: No Admit VTE Documentation VTE Present on Admission: No VTE Mechan Device Prophylaxis: SCD's VTE Pharm Prophylaxis ordered?: No Reason prophylaxis not ordered: Treatment Not Indicated
--- NOTE | 2025-04-28 18:05 | POSTOPAN2_ITS ---
Anesthesia Postop Eval I Sum
--- NOTE | 2025-04-28 18:05 | PCM.POSTANE2 ---
Anesthesia Postop Eval I Sum Postop Eval Completion status Anesthesia document: Postop Eval 1 completed: Yes Anesthesia Postop Eval I Summary Anesthesia Postop Eval I Summary: Anesthesia Postop Eval I: Assessment Summary Airway patent Yes 04/28/25 15:18 [employer]CTION SYSTEM[employer] FOREMAN.TNES Spontaneous unlabored Yes 04/28/25 15:18 [employer].TNES respirations Mental status nausea No 04/28/25 15:18 [employer] SYSTEM[employer]EMAN.TNES Vomiting No 04/28/25 15:18 [employer]LE[employer]EMAN.TNES Anesthesia Postop Eval I: Fluid Summary Crystalloid volume administer 1,000 04/28/25 15:18 [employer] FOREMAN.TNES (ml) Colloids volume administered ( ml) Blood Product volume administered (ml) Total IV fluid infused 1,000 04/28/25 15:18 [employer]LE[employer] SYSTEM[employer] FOREMAN.TNES Anesthesia Postop Eval I: Summary Notes Anesthesia Complication No 04/28/25 15:18 [employer]LECTION SYSTEM[employer] FOREMAN.TNES Anesthesia Complication Comment: Post-operative progress note Anesthesia: Postop Eval II Evaluation Mental status: Awake and Calm Pain Level: 1 nausea: No Vomiting: No Complications Anesthesia Complication: No
== END 2025-04-28 16:30 | disposition home or self-care (01) ==
LOC: SDC 10:58 → AC 11:05
PROVIDERS: PCP Internal Medicine; Referring Provider Surgery; Visit Provider Surgery
PROC: (CPT 19301; principal; 2025-04-28 12:15)
DX: C50.911 Malignant neoplasm of unspecified site of right female breast (principal); I10 Essential (primary) hypertension; N60.31 Fibrosclerosis of right breast; N64.1 Fat necrosis of breast; Z79.899 Other long term (current) drug therapy; R92.0 Mammographic microcalcification found on diagnostic imaging of breast; Z85.828 Personal history of other malignant neoplasm of skin
CPT/HCPCS: 11602; 00400; 88305; 88307; 88341; 88342; J2405